=== PATIENT | female | born 1970 | race Caucasian/White ===

== ENCOUNTER → 2018-08-29 08:03 | Outpatient (CLI) | payer BC, SELFPAY ==
--- NOTE | 2018-08-29 08:13 | AS_ITS ---
Renal Arterial Duplex IMPRESSIONS 1. The right renal artery appears normal. 2. The left renal artery appears normal. 3. Evidence of a second left renal artery is noted, with no evidence of renal artery stenosis. Left RAR is 0.72. No evidence of renal artery stenosis, bilaterally. 4. Normal kidney size, bilaterally. Complete renal arterial duplex. Duplex scan and Doppler flow study including spectral analysis, color and crump scale imaging. Height: Height: 154.9cm. Height: 61in. Weight: Weight: 70.3kg. Weight: 154.7lb. Body mass index: BMI: 29.3kg/m^2. Body surface area: BSA: 1.76m^2. Location: Vascular laboratory. Patient status: Outpatient. Tables: Arterial flow: + +--------+--------+---------+ Location V sys V ed Resistive + +--------+--------+---------+ Right renal - proximal 140cm/s 55.1cm/s --------- + +--------+--------+---------+ Right renal - mid 86.1cm/s 29.5cm/s --------- + +--------+--------+---------+ Right renal - distal 90cm/s 34.2cm/s --------- + +--------+--------+---------+ Left renal - proximal 149cm/s 53.8cm/s --------- + +--------+--------+---------+ Left renal - mid 111cm/s 33.1cm/s --------- + +--------+--------+---------+ Left renal - distal 136cm/s 53.8cm/s --------- + +--------+--------+---------+ Left renal - Origin 146cm/s 54.9cm/s 0.62 + +--------+--------+---------+ Right renal - Origin 193cm/s 61.6cm/s 0.68 + +--------+--------+---------+ L renal 2 - Origin 81.8cm/s 26.9cm/s 0.67 + +--------+--------+---------+ L renal 2 - prox 72.1cm/s 31.1cm/s 0.57 + +--------+--------+---------+ L renal- 2 - mid 72.9cm/s 33.6cm/s 0.54 + +--------+--------+---------+ L renal 2 - distal 73.8cm/s 32.8cm/s 0.56 + +--------+--------+---------+ Aorta 113cm/s 18.6cm/s 0.84 + +--------+--------+---------+ Artery mapping: + +--------+-------+ Location Diameter Patency + +--------+-------+ Abdominal aorta - mid 1.4mm Patent + +--------+-------+ Renal anatomy: + +-----+-----+ Left Right + +-----+-----+ Long axis 9.8cm 9.1cm + +-----+-----+ Short axis 4.7cm 4.1cm + +-----+-----+ Velocity ratios: + +-----+ V sys + +-----+ Right renal/aortic 1.7 + +-----+ Left renal/aortic 1.3 + +-----+ (Report amended ) Electronically signed by: Marquis Olmedo [id number]
--- NOTE | 2018-08-29 08:54 | US_ITS ---
US kidney retroperitoneal comp HISTORY: ITS.REASON: FLANK PAIN ORDERING PHYSICIAN: Adelaide Bhatti PATIENT AGE: 48 years Comparison: 04/05/2015 FINDINGS: The right kidney is 9.4 x 4 x 6.4 cm. No cortical thinning. No hydronephrosis. There is a 1 cm cyst in the upper pole. The left kidney is 10 x 6 x 8 cm. No cortical thinning or hydronephrosis. IMPRESSION: 1. No hydronephrosis. 2. Small right renal cyst. 3. Otherwise negative bilateral renal ultrasound
== END ==
PROVIDERS: PCP Family Medicine; Visit Provider Family Medicine
DX: R10.84 Generalized abdominal pain (principal); N13.30 Unspecified hydronephrosis
CPT/HCPCS: 76770; 93976

== ENCOUNTER 2020-04-02 14:35 | Emergency (ER) | payer BC, SELFPAY ==
[2020-04-02 15:02] VITALS: BP 111/75; PULSE 87; RESP 20; TEMP 36.9; O2SAT 98; BMI 32.3
--- NOTE | 2020-04-02 15:02 | HMH.EDUTC ---
[facility] [place] Clinical Impression: UTI (urinary tract infection) Qualifiers: Urinary tract infection type: site unspecified Hematuria presence: with hematuria Qualified Code(s): N39.0 - Urinary tract infection, site not specified Disposition: Home, Self-Care Condition on Discharge: Good Instructions: Urinary Tract Infection, DI for Urinary Tract Infection (UTI) Additional Instructions: Drink plenty of fluids. Take tylenol or ibuprofen for pain or fever. Take the medications as directed. Follow up with your regular doctor. GO TO THE ER FOR ANY WORSENING SYMPTOMS Follow up with Dr. Matthew (urology). I put in a referral but you need to call his office and get an appointment. The pyridium will make your urine turn orange, this is an expected side effect. It will stain your clothes if it comes into contact with them. Prescriptions: Ondansetron [Zofran 4mg ODT] 4 mg PO Q8HP PRN #10 tab.rapdis PRN Reason: Nausea Transmission Status: Received by [facility] Sulfamethoxazole/Trimethoprim [Bactrim DS tablet] 1 each PO BID 10 Days #20 tab Transmission Status: Received by [facility] Fluconazole [Diflucan 150mg tab] 150 mg PO ONCE #1 tab Transmission Status: Received by [facility] Phenazopyridine HCl [Pyridium 200mg Tablet] 200 pow PO TID #6 tab Transmission Status: Received by [id number] Referrals: Adelaide Bhatti [Primary Care Provider] - Grover Matthew MD [Staff Physician] - Forms: Work/School Release Time of Disposition: 15:17 Medical Decision Making - Medical Records Medical records reviewed: No: I reviewed the patient's medical records. - Jorge Luis Inquiry Pt receiving controlled substance: No Vital Signs: 04/02/20 15:02 04/02/20 15:30 Temperature 98.4 F 98.4 F Temperature Source Oral Pulse Rate 87 Pulse Rate [Left Brachial] 87 Respiratory Rate 20 20 Blood Pressure 111/75 Blood Pressure [Left Arm] 111/75 Blood Pressure Mean [Left Arm] 87 Blood Pressure Source [Left Arm] Automatic Cuff Blood Pressure Position [Left Arm] Sitting 02 Sat by Pulse Oximetry 98 Oxygen Delivery Method Room Air - Lab Data Lab results reviewed: Yes: I reviewed the patient's lab results. Lab Results 04/02/20 15:03: Urine Color Yellow, Urine Appearance Cloudy, Urine pH 6.0, Ur Specific [place] 1.025, Urine Protein Trace, Urine Glucose (UA) Negative, Urine Ketones Negative, Urine Blood Trace, Urine Nitrate Negative, Urine Bilirubin Negative, Urine Urobilinogen 0.2, Ur Leukocyte Esterase 1+ A Orders (Tests/Meds): ORDERS Category Date Time Status Urine Culture Stat Micro 04/02/20 14:45 Results [facility] [place] - General Stated complaint: Possible UTI Time Seen by Provider: 04/02/20 15:02 - History of Present Illness Provider Complaint: She c/o low back pain (worse on the right) and urinary frequency and dysuria for the past 3 days approx. She has been getting uti's frequently for the past 2 months or so. When she was young (15 y.o.) she had similar episode and she had to have a surgery on one of her ureters. - Related Data Home Medications Medication Instructions Recorded Confirmed spironolactone 50 mg tablet 50 mg PO DAILY 11/15/19 04/02/20 torsemide 20 mg tablet 20 mg PO DAILY 11/15/19 04/02/20 Previous Rx's Medication Instructions Recorded Fluconazole [Diflucan 150mg tab] 150 mg PO ONCE #1 tab 04/02/20 Ondansetron [Zofran 4mg ODT] 4 mg PO Q8HP PRN #10 tab.rapdis 04/02/20 Phenazopyridine HCl [Pyridium 200 pow PO TID #6 tab 04/02/20 200mg Tablet] Sulfamethoxazole/Trimethoprim 1 each PO BID 10 Days #20 tab 04/02/20 [Bactrim DS tablet] Allergies Allergy/AdvReac Type Severity Reaction Status Date / Time No Known Allergies Allergy Verified 11/15/19 13:25 [facility] History - Hepatitis A Screen Attestation statement:: This patient has been screened for Hepatitis A risk factors. I have review
[2020-04-02 15:13] LABS: Apearance,Urine Cloudy (Clear); Bilirubin,Urine Negative (Negative); Blood, Urine Trace (Negative); Color,Urine Yellow (Yellow); Glucose,Urine (UA) Negative (Negative); Ketones,Urine Negative (Negative); Protein,Urine Trace (Negative); Specific Gravity, Urine 1.025 (1.005-1.030); UTC Leukocyte Esterase,Urine 1+ (Negative); UTC Nitrate,Urine Negative (Negative); Urobilinogen,Urine 0.2 EU/dl (0.2)
[2020-04-02 15:30] VITALS: BP 111/75; PULSE 87; RESP 20; TEMP 36.9; O2SAT 98
== END 2020-04-02 15:33 | disposition home or self-care (01) ==
PROVIDERS: Emergency Provider Nurse Practitioner Family; PCP Family Medicine
DX: N39.0 Urinary tract infection, site not specified (principal); M54.5 Low back pain; F41.8 Other specified anxiety disorders
CPT/HCPCS: 81003; 87086; 87088; 87186; 99201

== ENCOUNTER → 2020-04-22 12:48 | Outpatient (CLI) | payer BC, SELFPAY ==
--- NOTE | 2020-04-22 12:48 | FL_ITS ---
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 300 mL water-soluble contrast was instilled into the urinary bladder. Spot views of the urinary bladder show unremarkable appearance of the urinary bladder. No filling defects are evident.. Voiding images were then obtained showing no evidence of vesicoureteral reflux. There was a mild amount of postvoid residual urine within the bladder. Initially there was approximately 200 mL of urine drained from the Thompson catheter after the patient had went to the bathroom and completely voided. IMPRESSION: 1. No evidence of vesicoureteral reflux. 2. Mild amount of postvoid residual urine in the urinary bladder Dictated by: Marquis Olmedo MD 04/22/2020 15:02 Electronically signed by Marquis Olmedo MD in [place] 04/22/2020 15:02
== END ==
PROVIDERS: PCP Family Medicine; Visit Provider Urology
DX: N13.70 Vesicoureteral-reflux, unspecified (principal); N39.0 Urinary tract infection, site not specified
CPT/HCPCS: 74455; Q9967

== ENCOUNTER → 2020-04-23 13:33 | Outpatient (CLI) | payer BC, SELFPAY ==
--- NOTE | 2020-04-23 13:34 | US_ITS ---
PROCEDURE: US KIDNEY CLINICAL INDICATION: COMPARISON: RETROPCM US kidney retroperitoneal comp from 08/29/2018 FINDINGS: The right kidney is [id number]. No hydronephrosis, cortical thinning, or renal mass or perinephric fluid collection is evident. There is a small 8 mm cyst in the mid pole of the right kidney The left kidney is [id number]. No hydronephrosis, cortical thinning, or renal mass or perinephric fluid collection is evident. IMPRESSION: Unremarkable bilateral renal ultrasound Dictated by: Marquis Olmedo MD 04/23/2020 16:20 Electronically signed by Marquis Olmedo MD in [place] 04/23/2020 16:20
== END ==
PROVIDERS: PCP Family Medicine; Visit Provider Urology
DX: R10.9 Unspecified abdominal pain (principal)
CPT/HCPCS: 76770

== ENCOUNTER → 2020-04-27 15:46 | Outpatient (CLI) | payer BC, SELFPAY ==
--- NOTE | 2020-04-27 16:00 | MR_ITS ---
PROCEDURE: MR LUMBAR SPINE WO CON CLINICAL INDICATION: BACK PAIN WITH BLADDER DYSFUNCTION Low back pain with left-sided sciatica, worsening low back pain with trouble walking soft COMPARISON: No exams were available for comparison TECHNIQUE: Standard multiplanar multiecho sequences are performed without contrast. 3-D MIP and myelographic images are also rendered and reviewed FINDINGS: There is normal alignment. The spinal cord ends at the L1 level. T11-T12: Degenerate disc disease with minimal right paracentral disc protrusion minimal right-sided foraminal narrowing. T12-L1: Unremarkable. L1-L2: Unremarkable. L2-L3: Unremarkable. L3-L4: Unremarkable. L4-5: Minimal bulging disc which is slightly eccentric toward the right with facet and ligamentum hypertrophy with mild right lateral recess and foraminal narrowing. L5-S1: Mild degenerative disc disease with bulging disc with facet and ligamentum hypertrophy with moderate bilateral foraminal narrowing with borderline canal stenosis. No extruded herniated disc is evident. IMPRESSION: 1. T11-T12: Degenerate disc disease with minimal right paracentral disc protrusion minimal right-sided foraminal narrowing. 2. L4-5: Minimal bulging disc which is slightly eccentric toward the right with facet and ligamentum hypertrophy with mild right lateral recess and foraminal narrowing. 3. L5-S1: Mild degenerative disc disease with bulging disc with facet and ligamentum hypertrophy with moderate bilateral foraminal narrowing with borderline canal stenosis. 4. No extruded herniated disc is evident. Dictated by: Marquis Olmedo MD 04/29/2020 10:05 Electronically signed by Marquis Olmedo MD in [place] 04/29/2020 10:05
== END ==
PROVIDERS: PCP Family Medicine; Visit Provider Family Medicine
DX: M54.5 Low back pain (principal); N31.9 Neuromuscular dysfunction of bladder, unspecified
CPT/HCPCS: 72148; 76376

== ENCOUNTER 2020-06-24 09:00 | Outpatient (RCR) | payer BC, SELFPAY | END 2020-06-24 10:00 | disposition home or self-care (01) | LOC: PT 09:00 | PROVIDERS: PCP Family Medicine; Visit Provider Orthopaedic Surgery | DX: M54.5 Low back pain (principal) | CPT/HCPCS: 97010; 97012; 97014; 97110; 97163; G0283 ==

== ENCOUNTER 2020-08-02 17:41 | Emergency (ER) | payer BC, SELFPAY ==
--- NOTE | 2020-08-02 18:02 | HMH.EDUTC ---
[facility] [place] Dis[place] Clinical Impression: Crush injury of left foot Qualifiers: Encounter type: initial encounter Qualified Code(s): S97.82XA - Crushing injury of left foot, initial encounter Disposition: Home, Self-Care Condition on Discharge: Good Instructions: DI for Crush Injury Additional Instructions: Rest the extremity, Elevate the extremity as tolerated while you are resting. Take ibuprofen for pain. I sent in a prescription to your pharmacy. Follow up with Dr. Colin. I put in a referral but you need to call her office and schedule an appointment. Follow up with your regular doctor. GO TO THE ER FOR ANY WORSENING SYMPTOMS Prescriptions: Ibuprofen [Ibuprofen 600mg Tablet] 600 mg PO Q6HP PRN #30 tab PRN Reason: Mild Pain Transmission Status: Received by [facility] Referrals: Adelaide Bhatti [Primary Care Provider] - Kylah Colin DPM [Staff Physician] - Time of Disposition: 18:38 Medical Decision Making - Medical Records Medical records reviewed: No: I reviewed the patient's medical records. - Jorge Luis Inquiry Pt receiving controlled substance: No Vital Signs: 08/02/20 18:11 08/02/20 18:38 Temperature 98.6 F 98.6 F Temperature Source Oral Pulse Rate 72 Pulse Rate [Right Brachial] 72 Respiratory Rate 15 15 Blood Pressure 130/90 Blood Pressure [Right Arm] 130/90 Blood Pressure Mean [Right Arm] 103 Blood Pressure Source [Right Arm] Automatic Cuff Blood Pressure Position [Right Arm] Sitting 02 Sat by Pulse Oximetry 99 Oxygen Delivery Method Room Air - Radiology Data #1 Image(s): Foot/Toes Image Reviewed: Yes I reviewed the patient's radiology image, Yes I have reviewed radiologist's interpretation Preliminary Findings: Normal/NAD, No Fracture Seen PROCEDURE: XR FOOT RT MIN 3V CLINICAL INDICATION: dropped 45# weight on foot Posttraumatic pain COMPARISON: No exams were available for comparison FINDINGS: No fracture or dislocation. No lytic or blastic change. There is normal mineralization. The joint spaces are well-preserved. No significant degenerative/arthritic changes. No erosive changes evident. Other findings:None. IMPRESSION: No acute findings. Dictated by: Marquis Olmedo MD 08/03/2020 07:10 Marquis Olmedo MD in [place] 08/03/2020 07:10 [facility] [place] HPI - General Stated complaint: AO 1101@2030 at home injured L foot toes Time Seen by Provider: 08/02/20 18:02 - History of Present Illness Provider Complaint: She was working out yesterday when she dropped a 45 pound weight on her left foot. Since then she has had foot pain and swelling and bruising of her 3rd, 4th, and 5th toes. She is walking without difficulty, but she states that her foot does hurt when she walks or bears weight on it. - Related Data Home Medications Medication Instructions Recorded Confirmed spironolactone 50 mg tablet 50 mg PO DAILY 11/15/19 05/14/20 torsemide 20 mg tablet 20 mg PO DAILY 11/15/19 05/14/20 Previous Rx's Medication Instructions Recorded Fluconazole [Diflucan 150mg tab] 150 mg PO ONCE #1 tab 04/02/20 Ondansetron [Zofran 4mg ODT] 4 mg PO Q8HP PRN #10 tab.rapdis 04/02/20 Phenazopyridine HCl [Pyridium 200 pow PO TID #6 tab 04/02/20 200mg Tablet] Sulfamethoxazole/Trimethoprim 1 each PO BID 10 Days #20 tab 04/02/20 [Bactrim DS tablet] Ibuprofen [Ibuprofen 600mg 600 mg PO Q6HP PRN #30 tab 08/02/20 Tablet] Allergies Allergy/AdvReac Type Severity Reaction Status Date / Time No Known Allergies Allergy Verified 05/14/20 15:04 [facility] History - Hepatitis A Screen Attestation statement:: This patient has been screened for Hepatitis A risk factors. I have reviewed the patient's past medical history: Yes 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: Reports:: Anxiety, Congestive Heart Failure, Depression, Hypertension Other 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: Reports: Arthritis Comment: [id number] Other Surgeries: Yes: No Previous Surgery, Cholecystectomy, C-sec
[2020-08-02 18:11] VITALS: BP 130/90; PULSE 72; RESP 15; TEMP 37; O2SAT 99; BMI 33.0
[2020-08-02 18:38] VITALS: BP 130/90; PULSE 72; RESP 15; TEMP 37; O2SAT 99
== END 2020-08-02 18:40 | disposition home or self-care (01) ==
PROVIDERS: Emergency Provider Nurse Practitioner Family; PCP Family Medicine
DX: S97.82XA Crushing injury of left foot, initial encounter (principal); W22.8XXA Striking against or struck by other objects, initial encounter; Y92.018 Other place in single-family (private) house as the place of occurrence of the external cause; I10 Essential (primary) hypertension; F41.8 Other specified anxiety disorders
CPT/HCPCS: 73630; 99201

== ENCOUNTER 2020-09-06 10:40 | Emergency (ER) | payer BC, SELFPAY ==
[2020-09-06 11:50] VITALS: BP 130/71; PULSE 75; RESP 18; TEMP 36.4; O2SAT 99; BMI 33.0
[2020-09-06 11:55] VITALS: BP 130/71; PULSE 75; RESP 18; TEMP 36.4; O2SAT 99
--- NOTE | 2020-09-06 11:55 | HMH.EDUTC ---
[facility] [place] Impression: Close exposure to COVID-19 virus Disposition: Home, Self-Care Condition on Discharge: Good Instructions: Preventing the Spread of Coronavirus Discharge Instructions Additional Instructions: *Monitor Temp, Over the counter Motrin or Tylenol as directed/as needed Tylenol every 4 hours and Motrin every 6 hours (as long as your family doctor has told you that you can take it) for fever or pain. and straight to ER if unable to lower temp less than 101.0 after medication given *Warm salt water gargles may help to soothe the throat *Throat Lozenges *Warm fluids like tea with honey may help to soothe the throat *Sleep elevated *Humidifier/Vaporizer ? Avoid fruit juices, as these do not replace minerals and can actually increase diarrhea. ? Children and adults can use sports drinks to replenish electrolytes. Younger children and infants should use products formulated for children, like oral rehydration solutions. ? Eat food in small amounts and let your stomach recover. ? Get lots of rest. You may feel tired or weak. ? No greasy or fried foods for the next 24-48 hours BRAT diet Bananas Rice Apples and Rio ? Make sure to drink plenty of liquids ? Return if needed ? Straight to ER if any life threatening symptoms ? Follow up with family doctor in the next 48-72 hours if no improvement or any worsening of symptoms Follow up IMMEDIATELY for new or worsening symptoms or no Noticeable improvement over the next 48-72 hours. 911 for difficulty breathing or swallowing You were tested for today for COVID19 your test result should be back in the next 24-48 hours, you may call to the [facility] to see if your test results are back in the next 48 hours [phone] [facility] hours are 9am-9pm You was given a handout with instructions for Self Quarantine and Self isolation for while you wait on test results and what to do if they are positive If you are positive the Health Dept will be contacting you also Referrals: Adelaide Bhatti [Primary Care Provider] - As needed Forms: Work/School Release Time of Disposition: 11:58 Medical Decision Making - Jorge Luis Inquiry Pt receiving controlled substance: No Jorge Luis was queried for this patient: No Vital Signs: 09/06/20 11:50 Temperature 97.6 F Temperature Source Oral Pulse Rate [Left] 75 Respiratory Rate 18 Blood Pressure [Right Arm] 130/71 Blood Pressure Mean [Right Arm] 90 Blood Pressure Source [Right Arm] Automatic Cuff Blood Pressure Position [Right Arm] Sitting 02 Sat by Pulse Oximetry 99 Oxygen Delivery Method Room Air Orders (Tests/Meds): ORDERS Category Date Time Status Covid-19 Nasal PCR Sendout [facility] 09/06/20 11:30 [place] [facility] [place] - General Stated complaint: covid exposed Time Seen by Provider: 09/06/20 11:55 Mode of Arrival: Ambulatory Source of Information: Patient Limitations: No Limitations Description of Symptoms (Recalled from Triage Doc. by RN): Covid testing exposure HEENT Symptoms (Recalled from RN notes): Yes Resp Symptoms (Recalled from RN notes): Yes Skin Symptoms (Recalled from RN notes): No MS Symptoms (Recalled from RN notes): Yes Functional Status (Recalled from RN notes): wnl - History of Present Illness Provider Complaint: Patient states she was recently around her son that has since tested positive for COVID States that she works out and started a new supplement and not sure if she may have COVID or the supplement is causing her to have body aches and diarrhea States that she has also had chills but no known fever and wanted to come in and get tested 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
[2020-09-07 12:47] LABS: Covid-19 Nasal PCR Sendout Lex Not Detected
== END 2020-09-06 12:33 | disposition home or self-care (01) ==
PROVIDERS: Emergency Provider Nurse Practitioner; PCP Family Medicine
DX: Z20.828 Contact with and (suspected) exposure to other viral communicable diseases (principal); F41.8 Other specified anxiety disorders; I50.9 Heart failure, unspecified; I10 Essential (primary) hypertension; Z79.899 Other long term (current) drug therapy
CPT/HCPCS: 99201; U0004

== ENCOUNTER 2020-10-19 11:19 | Emergency (ER) | payer BC, SELFPAY ==
[2020-10-19 12:00] VITALS: BP 130/78; PULSE 77; RESP 19; TEMP 36.6; O2SAT 98
== END 2020-10-19 12:02 | disposition left against medical advice (07) ==
LOC: UTC 11:21
PROVIDERS: Emergency Provider Nurse Practitioner; PCP Family Medicine
DX: Z53.21 Procedure and treatment not carried out due to patient leaving prior to being seen by health care provider (principal)

== ENCOUNTER 2020-11-12 12:00 | Emergency (ER) | payer BC, SELFPAY ==
[2020-11-12 12:10] VITALS: BP 127/85; PULSE 99; RESP 18; TEMP 36.9; O2SAT 96; BMI 33.0
--- NOTE | 2020-11-12 12:18 | HMH.EDUTC ---
[facility] [place] Disposition Clinical Impression: Sinusitis Qualifiers: Sinusitis location: unspecified location Chronicity: unspecified Qualified Code(s): J32.9 - Chronic sinusitis, unspecified Disposition: Home, Self-Care Condition on Discharge: Good Instructions: Sinusitis, Sinus Headache, DI for Sinusitis, Doxycycline Additional Instructions: *Monitor Temp, Over the counter Motrin or Tylenol as directed/as needed Tylenol every 4 hours and Motrin every 6 hours (as long as your family doctor has told you that you can take it) for fever or pain. and straight to ER if unable to lower temp less than 101.0 after medication given *Warm salt water gargles may help to soothe the throat *Throat Lozenges *Warm fluids like tea with honey may help to soothe the throat *Sleep elevated *Humidifier/Vaporizer *Flonase 2 sprays in each nostril daily but be aware that it may take 2-3 days before you notice improvement *Take medication as prescribed Return if needed Make sure while taking mucinex that you are drinking plenty of fluids Follow up IMMEDIATELY for new or worsening symptoms or no Noticeable improvement over the next 48-72 hours. 911 for difficulty breathing or swallowing Prescriptions: Doxycycline Monohydrate [Doxycycline [place] 100mg Tab] 100 mg PO Q12 #14 tab Transmission Status: Pending to [facility] Fluticasone Propionate [Flonase 50mcg nasal spray 16gm] 1 spr NS DAILY #1 bottle Transmission Status: Pending to [facility] guaiFENesin [Mucinex 600mg tablet] 600 mg PO BID PRN #20 tab.er.12h PRN Reason: Congestion Transmission Status: Pending to [facility] Referrals: Adelaide Bhatti [Primary Care Provider] - As needed Time of Disposition: 12:26 Medical Decision Making - Jorge Luis Inquiry Pt receiving controlled substance: No Jorge Luis was queried for this patient: No Vital Signs: 11/12/20 12:10 Temperature 98.4 F Temperature Source Oral Pulse Rate [Right] 99 H Respiratory Rate 18 Blood Pressure [Right Arm] 127/85 Blood Pressure Mean [Right Arm] 99 Blood Pressure Source [Right Arm] Automatic Cuff Blood Pressure Position [Right Arm] Sitting 02 Sat by Pulse Oximetry 96 Oxygen Delivery Method Room Air [facility] [place] HPI - General Stated complaint: stuffy nose,headache,body aches Time Seen by Provider: 11/12/20 12:18 Mode of Arrival: Ambulatory Source of Information: Patient Limitations: No Limitations Description of Symptoms (Recalled from Triage Doc. by RN): pt says she has a MOODY, sinus pressure, cough from the drainage, and sore throat. she believes its a sinus infection. she states she has had both covid vaccines. HEENT Symptoms (Recalled from RN notes): Yes (nasal congestion and yellow drainage. MOODY) Resp Symptoms (Recalled from RN notes): Yes (nonproductive cough) Skin Symptoms (Recalled from RN notes): No MS Symptoms (Recalled from RN notes): No Functional Status (Recalled from RN notes): na - History of Present Illness Provider Complaint: Patient states that she has frequent sinus infections States that she had one in Oct and took medication and didnt feel like it cleared up the infection States that she is having sinus pain and pressure, sinus headache and feeling like she was having some pressure in teeth states that she has been blowing out dark yellowish green mucous - Related Data Home Medications Medication Instructions Recorded Confirmed spironolactone 50 mg tablet 50 mg PO DAILY 11/15/19 05/14/20 torsemide 20 mg tablet 20 mg PO DAILY 11/15/19 05/14/20 Previous Rx's Medication Instructions Recorded Fluconazole [Diflucan 150mg tab] 150 mg PO ONCE #1 tab 04/02/20 Ondansetron [Zofran 4mg ODT] 4 mg PO Q8HP PRN #10 tab.rapdis 04/02/20 Phenazopyridine HCl [Pyridium 200 pow PO TID #6 tab 04/02/20 200mg Tablet] Sulfamethoxazole/Trimethoprim 1 each PO BID 10 Days #20 tab 04/02/20 [Bactrim DS tablet] Ibuprofen [Ibuprofen 600mg 600 mg PO Q6HP PRN #30 tab 08/02/20
[2020-11-12 12:27] VITALS: BP 129/84; PULSE 98; RESP 18; TEMP 36.8
== END 2020-11-12 12:32 | disposition home or self-care (01) ==
PROVIDERS: Emergency Provider Nurse Practitioner; PCP Family Medicine
DX: J32.9 Chronic sinusitis, unspecified (principal); I10 Essential (primary) hypertension; F41.8 Other specified anxiety disorders; Z79.899 Other long term (current) drug therapy
CPT/HCPCS: 99202; G0463

== ENCOUNTER → 2021-01-10 13:02 | Outpatient (CLI) | payer BC, SELFPAY ==
--- NOTE | 2021-01-10 13:04 | XR_ITS ---
PROCEDURE: XR DEXA AXIAL SKELETON CLINICAL HISTORY: SCREENING FOR OSTEOPENIA COMPARISON: No exams were available for comparison FINDINGS: The right hip BMD is 0.828 with a T-score of -0.2. The left hip BMD is 0.918 with a T-score of 0.6. The lumbar spine BMD is 1.155 with a T-score of 1.0. IMPRESSION: This patient is considered normal according to the World Health Organization criteria. Fracture risk is low. Based on these results a follow-up exam is recommended in 2 year. Dictated by: Marquis Olmedo MD 01/12/2021 09:41 Marquis Olmedo MD in [place] 01/12/2021 09:41
== END ==
PROVIDERS: PCP Family Medicine; Visit Provider Family Medicine
DX: Z13.820 Encounter for screening for osteoporosis (principal); M85.80 Other specified disorders of bone density and structure, unspecified site
CPT/HCPCS: 77080

== ENCOUNTER 2021-03-30 18:02 | Emergency (ER) | payer BC, SELFPAY ==
[2021-03-30 18:05] VITALS: BP 134/68; PULSE 78; RESP 18; TEMP 36.8; O2SAT 99; BMI 34.0
--- NOTE | 2021-03-30 18:45 | HMH.EDUTC ---
[facility] [place] Disposition Clinical Impression: Fatigue Qualifiers: Fatigue type: unspecified Qualified Code(s): R53.83 - Other fatigue Disposition: Home, Self-Care Condition on Discharge: Good Instructions: DI for Fatigue Additional Instructions: Make sure to Follow up with your Family Doctor for further blood tests and examination Return if needed Straight to ER if any life threatening symptoms Make sure that you are eating adequate diet and getting adequate rest Referrals: Bartolo Roe MD [Primary Care Provider] - As needed Time of Disposition: 19:01 Medical Decision Making - Jorge Luis Inquiry Pt receiving controlled substance: No Jorge Luis was queried for this patient: No Vital Signs: 03/30/21 18:05 03/30/21 18:58 Temperature 98.2 F 98.2 F Temperature Source Oral Pulse Rate 78 Pulse Rate [Right Brachial] 78 Respiratory Rate 18 18 Blood Pressure 134/68 Blood Pressure [Right Arm] 134/68 Blood Pressure Mean [Right Arm] 90 Blood Pressure Source [Right Arm] Automatic Cuff Blood Pressure Position [Right Arm] Sitting 02 Sat by Pulse Oximetry 99 Oxygen Delivery Method Room Air - Lab Data Lab Results 03/30/21 18:25: WBC 8.5, RBC 4.56, Hgb 13.3, Hct 40.6, MCV 89.0, MCH 29.2, MCHC 32.8, RDW 14.5, Plt Count 211, MPV 7.4, Neut % (Auto) 57.1, Lymph % (Auto) 32.8, [place] % (Auto) 4.7, Eos % (Auto) 4.8, Baso % (Auto) 0.7, Neut # (Auto) 4.8, Lymph # (Auto) 2.8, [place] # (Auto) 0.4, Eos # (Auto) 0.4, Baso # (Auto) 0.1 Result diagrams: 03/30/21 18:25 Medical Decision Narrative: Discussed with patient and recommended transfer to the ED for more extensive work up and evaluation and patient declined States that she wanted to have the CBC to make sure her platelets wasnt low again and she will follow up with her Family Doctor as scheduled or return if any worsening of symptoms patient aware or risks and still declined transfer [facility] [place] HPI - General Stated complaint: weakness Time Seen by Provider: 03/30/21 18:45 Mode of Arrival: Ambulatory Source of Information: Patient Limitations: No Limitations Description of Symptoms (Recalled from Triage Doc. by RN): PATIENT C/O FATIGUE, HEAD FOG , AND TINGLING EXTREMETIES (IN AM) X 2 WEEKS HEENT Symptoms (Recalled from RN notes): No Resp Symptoms (Recalled from RN notes): No Skin Symptoms (Recalled from RN notes): No MS Symptoms (Recalled from RN notes): No Functional Status (Recalled from RN notes): WNL - History of Present Illness Provider Complaint: Patient states that she has been feeling tired for several weeks and feels like sometimes she has brain fog where she doesnt remember everything State that she was worried that her blood may be low and wanted to get that checked State that it has been going on for awhile now and she has appointment with her PCP next week State also at times when she wakes up she has some tingling in her fingers that goes away not sure if she is laying on it wrong or not denies tingling at this time States that she wanted to get her blood checked to make sure her blood wasnt low or her platelets wasnt low - Related Data Home Medications Medication Instructions Recorded Confirmed spironolactone 50 mg tablet 50 mg PO DAILY 11/15/19 05/14/20 torsemide 20 mg tablet 20 mg PO DAILY 11/15/19 05/14/20 Previous Rx's Medication Instructions Recorded Fluconazole [Diflucan 150mg tab] 150 mg PO ONCE #1 tab 04/02/20 Ondansetron [Zofran 4mg ODT] 4 mg PO Q8HP PRN #10 tab.rapdis 04/02/20 Phenazopyridine HCl [Pyridium 200 pow PO TID #6 tab 04/02/20 200mg Tablet] Sulfamethoxazole/Trimethoprim 1 each PO BID 10 Days #20 tab 04/02/20 [Bactrim DS tablet] Ibuprofen [Ibuprofen 600mg 600 mg PO Q6HP PRN #30 tab 08/02/20 Tablet] Doxycycline Monohydrate 100 mg PO Q12 #14 tab 11/12/20 [Doxycycline [place] 100mg Tab] Fluticasone Propionate [Flonase 1 spr NS DAILY #1 bottle 11/12/20 50mcg nasal spray 16gm] guaiFENesin [Mucinex 600mg
[2021-03-30 18:52] LABS: Basophils # 0.1 K/mm3 (0-0.2); Basophils % 0.7 % (0.1-2.0); Eosinophils # 0.4 K/mm3 (0.0-0.4); Eosinophils % 4.8 % (0.1-12.0); Hematocrit 40.6 % (37.0-47.0); Hemoglobin 13.3 g/dL (12.2-16.2); Lymphocytes # 2.8 K/mm3 (0.7-4.5); Lymphocytes % 32.8 % (10-50); Mean Corpuscular HGB Conc 32.8 g/dL (31.8-35.4); Mean Corpuscular Hemoglobin 29.2 pg (27.0-31.2); Mean Platelet Volume 7.4 fl (7.4-10.4); Monocytes # 0.4 K/mm3 (0.1-1.0); Monocytes % 4.7 % (1.7-9.3); Neutrophils # 4.8 K/mm3 (1.8-7.8); Neutrophils % 57.1 % (37.0-80.0); Platelet Count 211 K/mm3 (142-424); Red Blood Count 4.56 M/mm3 (4.20-5.40); Red Cell Distribution Width 14.5 % (11.5-17.5); White Blood Count 8.5 K/mm3 (4.8-10.8)
[2021-03-30 18:58] VITALS: BP 134/68; PULSE 78; RESP 18; TEMP 36.8; O2SAT 99
== END 2021-03-30 19:07 | disposition home or self-care (01) ==
PROVIDERS: Emergency Provider Nurse Practitioner; PCP Family Medicine
DX: R53.83 Other fatigue (principal); R20.2 Paresthesia of skin; I50.9 Heart failure, unspecified; I10 Essential (primary) hypertension; F41.8 Other specified anxiety disorders; Z79.899 Other long term (current) drug therapy
CPT/HCPCS: 85025; 99202; G0463

== ENCOUNTER → 2021-04-08 12:55 | Outpatient (CLI) | payer BC, SELFPAY ==
--- NOTE | 2021-04-08 13:01 | MM_ITS ---
PROCEDURE INFORMATION: Exam: MG Screening 3D Mammography Exam date and time: 04/08/2021 1:01 PM Age: 50 years old Clinical indication: screening mammogram TECHNIQUE: Imaging protocol: Screening tomosynthesis and 2D mammography including computer-aided detection (CAD) when performed. COMPARISON: 1. MG DMSB DIG MAMM-SCREEN MARGIE W/CAD 08/02/2017 3:38 PM 2. MG DMDXUAVL DIG MAMM-DX UNI ADD VIEWS-LT 07/30/2014 2:07 PM 3. MG DMSB DIG MAMM-SCREEN MARGIE 07/14/2014 10:45 AM FINDINGS: MAMMOGRAPHY: Breast composition: The breast tissue is heterogeneously dense, which may obscure small masses. Mass: None. Architectural distortion: No new or suspicious architectural distortion. Calcifications: No new or suspicious calcifications are present Asymmetric density: No new or suspicious asymmetric density is present Skin thickening: None. Axillary adenopathy: None. IMPRESSION: No mammographic evidence of malignancy. Recommend annual screening mammography unless otherwise clinically indicated. ASSESSMENT: BI-RADS category 1: Negative
== END ==
PROVIDERS: PCP Family Medicine; Visit Provider Family Medicine
DX: Z12.31 Encounter for screening mammogram for malignant neoplasm of breast (principal)
CPT/HCPCS: 77063; 77067

== ENCOUNTER → 2021-05-31 15:17 | Outpatient (CLI) | payer BC, SELFPAY ==
[2021-05-31 17:44] LABS: Coronavirus 19 IgG Antibody Positive (Negative); Coronavirus 19 IgM Antibody Negative (Negative)
== END ==
PROVIDERS: PCP Family Medicine; Visit Provider Family Medicine
DX: Z20.822 Contact with and (suspected) exposure to COVID-19 (principal)
CPT/HCPCS: 36415; 86328

== ENCOUNTER → 2021-08-11 09:58 | Outpatient (CLI) | payer BC, SELFPAY ==
--- NOTE | 2021-08-11 09:59 | CA_ITS ---
APPROVED REPORT EXAM: Comprehensive 2D, Doppler, and color-flow Echocardiogram Cash Posting Clerk: Gini Ramos RVT Ht: 5 ft 1 in Wt: 178lbs BSA: 1.80 BP: 103/67 mmHg Indications: CP,CHF,DIZZINESS,HTN,HLD,SOA 2D Dimensions LVOT 2.07 cm (M/F) 1.5-2.5 LA Volume 14.30 mL LA Volume Index 7.98 mL/m2 (M/F) 16-34 M-Mode Dimensions RVDd 2.14 cm (0.9-2.6) LA Diam 2.64 cm (1.9-4.0) LVDd 4.22 cm (3.5-5.7) Ao Diam 2.54 cm (2.0-3.7) LVDs 3.01 cm (3.5-5.7) IVSd 0.77 cm (0.6-1.1) PWd 0.64 cm (0.6-1.1) EF (Teich) 55.60% FS 28.70% EDV (Teich) 79.50 mL TAPSE 2.30 (<1.7) ESV (Teich) 35.30 mL LV Diastology E Decel Time 150.00 (160-240 msec) E/A Ratio 0.9 MED E' 7.60 (< 7 cm/sec) E'/MED E' Ratio 9.54 (>14) LAT E' 14.30 (<10 cm/sec) E/LAT E' Ratio 5.07 (>14) Mitral Valve MV E Max Emigdio. 73.00 (40-130 cm/s) MV A Velocity 83.00 (40-130 cm/s) E/A Ratio 0.87 MV Decel. Time 150.00 (160-240 ms) MV PHT 44.00 ms Pulmonary Valve PV Peak Velocity 78.00 (50-150 cm/s) Tricuspid Valve TR P. Velocity 218.00 cm/s RAP Estimate 10.00 mmHg RVSP 28.90 mmHg Left Ventricle Left atrium normal size, left ventricle is normal size, there is no concentric left ventricular hypertrophy, visually estimated ejection fraction 55% with no regional wall motion abnormality, diastolic parameters are within normal range. Right Ventricle Right atrium and right ventricle are normal size and contractility. Aortic Valve Aortic valve is grossly normal, there is no aortic stenosis or aortic insufficiency. Mitral Valve Mitral valve is grossly normal, there is trace mitral regurgitation. Tricuspid Valve Tricuspid grossly normal, there is trace tricuspid regurgitation, tricuspid regurgitation jet velocity is inadequate for calculation of the right ventricular systolic pressure. Pulmonic Valve Pulmonic valve is poorly visualized. Great Vessels Aortic root is normal size. Inferior vena cava is normal size with normal inspiratory collapse. Pericardium No significant pericardial effusion noted. Conclusion 1. Normal left ventricular size, preserved left ventricular systolic function, visually estimated ejection fraction 55% with no regional wall motion abnormality, diastolic parameters are within normal range. 2. Trace mitral and tricuspid regurgitation. 3. No significant pericardial effusion noted. 4. Inferior vena cava is normal size with normal inspiratory collapse. Electronically signed by : Vinicio Dumont MD 08/11/2021 15:29:27
--- NOTE | 2021-08-11 09:59 | CA_ITS ---
APPROVED REPORT Exam: Exercise Treadmill Technologist: Rosana Ramos, Ht: 5 ft 1 in Wt: 178 lbs BSA: 1.80 m2 HR: 85 bpm BP: 119/80 mmHg Rhythm: NSR, low voltage QRS Indications: CP, SOA 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: Hyperlipidemia Medications: Ibuprofen,,,,, FluTICASONE,,,,, SpirOnolactone,,,,, TorSEMIDE,,,,, Cardiac Risk Factors: FHX of CAD, Hyperlipidemia Stress Test Details Test: Dionisio HR Resting HR: 102 bpm Max Heart Rate (APMHR): 171 bpm Max HR Achieved: 167 bpm Target HR (85% APMHR): 145 bpm % of APMHR: 97 Recovery HR: 152 bpm BP Resting BP: 112/79 mmHg Max BP: 148/88 mmHg Recovery BP: 146.0/83.0 mmHg ECG Resting ECG: NSR, low voltage QRS Clinical Exercise duration: 07:59 min Highest Stage Achieved: Exercise capacity: 10.1 METs Stress ECG Conclusion Pt exercised total of 7:59 on dionisio protocol. Mild chest heaviness and SOA noted. Occasional PVC. Normal ST response to exercise. Normal GXT. GXT only. Electronically signed by : Vinicio Dumont MD 08/11/2021 14:04:28
== END ==
PROVIDERS: PCP Family Medicine; Visit Provider Nurse Practitioner Family
DX: R06.00 Dyspnea, unspecified (principal); R07.9 Chest pain, unspecified; R42 Dizziness and giddiness; I50.9 Heart failure, unspecified; R60.0 Localized edema; R61 Generalized hyperhidrosis
CPT/HCPCS: 93017; 93306

== ENCOUNTER 2021-08-26 11:29 | Emergency (ER) | payer BC, SELFPAY ==
[2021-08-26 13:15] VITALS: BP 129/64; PULSE 104; RESP 20; TEMP 37; O2SAT 97; BMI 34.0
[2021-08-26 13:41] LABS: Apearance,Urine Cloudy (Clear); Color,Urine Yellow (Yellow); Glucose,Urine (UA) Negative (Negative); Ketones,Urine Negative (Negative); PH,Urine 5.5 (5.0-8.5); Protein,Urine Negative (Negative)
[2021-08-26 13:42] LABS: Bilirubin,Urine Negative (Negative); Blood, Urine Trace (Negative); UTC Leukocyte Esterase,Urine Negative (Negative); UTC Nitrate,Urine Negative (Negative); Urobilinogen,Urine 0.2 EU/dl (0.2)
--- NOTE | 2021-08-26 13:55 | HMH.EDUTC ---
[facility] [place] Disposition Clinical Impression: Viral syndrome, Bronchitis Sinusitis Qualifiers: Sinusitis location: unspecified location Chronicity: acute Recurrence: non-recurrent Qualified Code(s): J01.90 - Acute sinusitis, unspecified Pharyngitis Qualifiers: Pharyngitis/tonsillitis etiology: unspecified etiology Qualified Code(s): J02.9 - Acute pharyngitis, unspecified Disposition: Home, Self-Care Condition on Discharge: Good Instructions: DI for Sinusitis Additional Instructions: Drink plenty of fluids. Take tylenol or ibuprofen for pain or fever. Take the medications as directed. Follow up with your regular doctor. GO TO THE ER FOR ANY WORSENING SYMPTOMS Quarantine until you know the results of your covid-19 test. If it is positive, the health department should call you and give you further instructions about your length of Quarantine and other things. Notify your school or workplace of your results and follow their instructions regarding return to work/school. Prescriptions: Promethazine/Dextromethorphan [Promethazine-Dm Syrup] 5 ml PO Q6HP PRN #240 ml PRN Reason: Cough Transmission Status: Received by [id number] Benzonatate [Benzonatate 100mg cap] 100 mg PO TIDP PRN #30 cap PRN Reason: Cough Transmission Status: Received by [facility] methylPREDNISolone [Medrol] 4 mg PO DIRECTED 6 Days #21 packet Transmission Status: Received by [facility] Cefdinir [Omnicef 300mg Capsule] 300 mg PO BID #20 cap Transmission Status: Received by [id number] Referrals: Adelaide Bhatti [Primary Care Provider] - Time of Disposition: 14:31 Medical Decision Making - Medical Records Medical records reviewed: No: I reviewed the patient's medical records. - Jorge Luis Inquiry Pt receiving controlled substance: No Vital Signs: 08/26/21 13:15 08/26/21 14:39 Temperature 98.6 F 98.6 F Temperature Source Oral Pulse Rate 104 H Pulse Rate [Right Brachial] 104 H Respiratory Rate 20 20 Blood Pressure 129/64 Blood Pressure [Right Arm] 129/64 Blood Pressure Mean [Right Arm] 85 Blood Pressure Source [Right Arm] Automatic Cuff Blood Pressure Position [Right Arm] Sitting 02 Sat by Pulse Oximetry 97 Oxygen Delivery Method Room Air - Lab Data Lab results reviewed: Yes: I reviewed the patient's lab results. Lab Results 08/26/21 13:40: Urine Color Yellow, Urine Appearance Cloudy, Urine pH 5.5, Ur Specific [place] 1.010, Urine Protein Negative, Urine Glucose (UA) Negative, Urine Ketones Negative, Urine Blood Trace, Urine Nitrate Negative, Urine Bilirubin Negative, Urine Urobilinogen 0.2, Ur Leukocyte Esterase Negative 08/26/21 14:24: Strep Scn Rapid Clinic Negative Orders (Tests/Meds): ORDERS Category Date Time Status Strep Screen Confirmation Stat Micro 08/26/21 14:24 Received [facility] [place] HPI - General Stated complaint: covid exposure/symptoms Time Seen by Provider: 08/26/21 13:55 Mode of Arrival: Ambulatory Source of Information: Patient Limitations: No Limitations Description of Symptoms (Recalled from Triage Doc. by RN): PATIENT C/O BODY ACHES, CONGESTION, AND PAIN TO RIGHT LUNG SINCE SUNDAY HEENT Symptoms (Recalled from RN notes): No Resp Symptoms (Recalled from RN notes): Yes Skin Symptoms (Recalled from RN notes): No MS Symptoms (Recalled from RN notes): No Functional Status (Recalled from RN notes): WNL - History of Present Illness Provider Complaint: She states that since yesterday she has had scratchy sore throat, cough, pleuritic right sided chest pain, fever, chills and she has felt bad. She has been vaccinated against covid-19. - Related Data Home Medications Medication Instructions Recorded Confirmed spironolactone 50 mg tablet 50 mg PO DAILY 11/15/19 08/16/21 torsemide 20 mg tablet 20 mg PO DAILY 11/15/19 08/16/21 Previous Rx's Medication Instructions Recorded Ibuprofen [Ibuprofen 600mg 600 mg PO Q6HP PRN #30 ta
[2021-08-26 14:35] LABS: UTC Strep Screen (Rapid) Negative (Negative)
[2021-08-26 14:39] VITALS: BP 129/64; PULSE 104; RESP 20; TEMP 37; O2SAT 97
== END 2021-08-26 14:42 | disposition home or self-care (01) ==
PROVIDERS: Emergency Provider Nurse Practitioner Family; PCP Family Medicine
DX: J01.90 Acute sinusitis, unspecified (principal); J02.9 Acute pharyngitis, unspecified; J20.9 Acute bronchitis, unspecified; F41.8 Other specified anxiety disorders; I10 Essential (primary) hypertension
CPT/HCPCS: 81003; 87880; 99203; C9803; G0463; U0003; U0005

== ENCOUNTER → 2022-03-14 14:51 | Outpatient (CLI) | payer BC, SELFPAY ==
--- NOTE | 2022-03-14 14:55 | MM_ITS ---
PROCEDURE INFORMATION: Exam: US Left Breast, Complete MG Bilateral Diagnostic Breast Tomosynthesis Exam date and time: 03/14/2022 2:47 PM Age: 51 years old Clinical indication: Left breast palpable lump; Mass, lump, or swelling; Additional info: Screening RT, palp lumps left (they were marked) , see HX sheet for additional notes TECHNIQUE: Imaging protocol: Complete ultrasound of all four quadrants of the Left breast and the retroareolar regions, including ultrasound of the axilla when performed. Bilateral Diagnostic tomosynthesis and 2D mammography including computer-aided detection (CAD) when performed. Unilateral or bilateral exam. COMPARISON: 1. MG MM DIG SCREENING MAMM BI W/CAD 04/08/2021 1:01 PM 2. MG DMSB DIG MAMM-SCREEN MARGIE W/CAD 08/02/2017 3:38 PM FINDINGS: MAMMOGRAPHY: Bilateral screening tomogram and spot compression tomograms in the region of palpable concern left breast The breasts are heterogeneously dense, which may obscure small masses. No new mass, architectural distortion, or suspicious calcifications have developed to suggest malignancy. No axillary adenopathy. ULTRASOUND: Ultrasound assessment of all 4 quadrants, retroareolar breast and axilla. Special attention to the upper inner left breast region of palpable concern as directed by the patient was performed. No suspicious solid or cystic mass is present. No benign-appearing solid or cystic mass is present. No architectural distortion or shadowing is present. No axillary adenopathy is present. IMPRESSION: No mammographic or sonographic evidence of malignancy. Recommend annual screening mammography unless otherwise clinically indicated. The decision to biopsy should be made on clinical grounds since a percentage of breast cancers are not detectable via ultrasound or mammography. Close clinical followup is recommended. ASSESSMENT: BI-RADS category 1: Negative
== END ==
PROVIDERS: PCP Family Medicine; Visit Provider Family Medicine
DX: Z12.31 Encounter for screening mammogram for malignant neoplasm of breast (principal); N63.20 Unspecified lump in the left breast, unspecified quadrant
CPT/HCPCS: 76641; 77062; 77066; G0279

== ENCOUNTER 2022-07-07 08:19 | Emergency (ER) | payer BC, SELFPAY ==
--- NOTE | 2022-07-07 08:26 | EXP.UTC ---
Discharge Plan Disposition Patient Disposition: Home, Self-Care Condition: Good Prescriptions Prescriptions: New azithromycin [Zithromax] 250 mg tablet 250 mg PO UD DOSE PK Qty: 6 0RF Rx Instructions: Take two (2) tablets today, then one (1) tablet days #2 thru #5 benzonatate [benzonatate] 100 mg capsule 100 mg PO TIDP PRN (Reason: Cough) Qty: 30 0RF methylprednisolone 4 mg Tablets,Dose Pack 4 mg PO DIRECTED Qty: 21 0RF No Action aspirin [Adult Low Dose Aspirin] 81 mg tablet,delayed release (DR/EC) 81 mg PO DAILY Qty: 30 5RF spironolactone 50 mg tablet 50 mg PO DAILY Label Comments: TAKE 1 TABLET BY MOUTH ONCE DAILY torsemide 20 mg tablet 20 mg PO DAILY Label Comments: TAKE 1 TABLET BY MOUTH ONCE DAILY ibuprofen 600 MG tablet 600 mg PO Q6HP PRN (Reason: Mild Pain) Qty: 30 0RF benzonatate 100 MG capsule 100 mg PO TIDP PRN (Reason: Cough) Qty: 30 0RF methylprednisolone 4 MG tablets,dose pack 4 mg PO DIRECTED 6 Days Qty: 21 0RF promethazine-DM 120 ML syrup 5 ml PO Q6HP PRN (Reason: Cough) Qty: 240 0RF cefdinir 300 MG capsule 300 mg PO BID Qty: 20 0RF fluticasone propionate 120 SPR/BOT bottle 1 spr NS DAILY Qty: 1 0RF Rx Instructions: each nostril daily Referrals Follow up/Referrals: Adelaide Bhatti [Primary Care Provider] - See instructions Activity Restrictions/Add. Instructions Additional Instructions/Restrictions: Drink plenty of fluids. Take tylenol or ibuprofen for pain or fever. Take the medications as directed. Follow up with your regular doctor. GO TO THE ER FOR ANY WORSENING SYMPTOMS Quarantine until you know the results of your covid-19 test. Notify your school or workplace of your results and follow their instructions regarding return to work/school. Don't start the oral steroids until tomorrow, since you had the shot here today. Clinical Impressions Clinical Impression: Sinusitis Stand Alone Forms Stand Alone Forms: Work/School Release Instructions Patient Instructions: Sinusitis, DI for Sinusitis Discharge ED Provider: Joshua Kenney [facility] [place] HPI General Stated complaint: Congestion, drainage, sinus pain, MOODY Time Seen by Provider: 07/07/22 08:26 History of Present Illness Provider Complaint: She c/o sinus congestion, ear pain and cough that began 5 days ago. Related Data Home Medications Medication Instructions Recorded Confirmed spironolactone 50 mg tablet 50 mg PO DAILY Fluid 11/15/19 07/07/22 torsemide 20 mg tablet 20 mg PO DAILY Fluid 11/15/19 07/07/22 Previous Rx's Medication Instructions Recorded ibuprofen 600 mg tablet 600 mg PO Q6HP PRN Mild Pain #30 08/02/20 tabs fluticasone propionate 50 1 spr NS DAILY ##1 11/12/20 mcg/actuation nasal spray,suspension aspirin 81 mg tablet,delayed 81 mg PO DAILY #30 tabs 08/10/21 release (Adult Low Dose Aspirin) benzonatate 100 mg capsule 100 mg PO TIDP PRN Cough #30 caps 08/26/21 cefdinir 300 mg capsule 300 mg PO BID #20 caps 08/26/21 methylprednisolone 4 mg tablets in 4 mg PO DIRECTED 6 days #21 08/26/21 a dose pack packets promethazine-DM 6.25 mg-15 mg/5 mL 5 ml PO Q6HP PRN Cough #240 mL 08/26/21 oral syrup azithromycin 250 mg tablet 250 mg PO UD DOSE PK #6 tabs 07/07/22 (Zithromax) benzonatate 100 mg capsule 100 mg PO TIDP PRN Cough #30 caps 07/07/22 methylprednisolone 4 mg tablets in 4 mg PO DIRECTED #21 tabs 07/07/22 a dose pack Allergies Allergy/AdvReac Type Severity Reaction Status Date / Time No Known Allergies Allergy Verified 07[facility]07[facility]22 08:37 [facility] Social History Smoking Status: Never smoker second hand exposure: No alcohol intake: never counseling provided: none substance use type: denies use current occupational status: other Travel in the last 8 weeks: None household members: family housing: [facility]
[2022-07-07 08:34] VITALS: BP 127/91; PULSE 94; RESP 16; TEMP 36.8; O2SAT 99; BMI 34.9
[2022-07-07 09:20] VITALS: BP 127/91; PULSE 94; RESP 16; TEMP 36.8
== END 2022-07-07 09:33 | disposition home or self-care (01) ==
PROVIDERS: Emergency Provider Nurse Practitioner Family; PCP Family Medicine
DX: J32.9 Chronic sinusitis, unspecified (principal)
CPT/HCPCS: 96372; 99212; G0463; J0696

== ENCOUNTER 2022-07-29 09:30 | Emergency (ER) | payer BC, SELFPAY ==
[2022-07-29 10:25] VITALS: BP 118/70; PULSE 101; RESP 20; TEMP 36.6; O2SAT 97; BMI 34.5
--- NOTE | 2022-07-29 10:38 | EXP.UTC ---
Discharge Plan Disposition Patient Disposition: Home, Self-Care Condition: Good Prescriptions Prescriptions: New amoxicillin-pot clavulanate 875-125 mg Tablet 1 tab PO Q12H Qty: 20 0RF prednisone 10 mg tablet 10 mg PO BID 5 Days Qty: 10 0RF No Action aspirin [Adult Low Dose Aspirin] 81 mg tablet,delayed release (DR/EC) 81 mg PO DAILY Qty: 30 5RF spironolactone 50 mg tablet 50 mg PO DAILY Label Comments: TAKE 1 TABLET BY MOUTH ONCE DAILY torsemide 20 mg tablet 20 mg PO DAILY Label Comments: TAKE 1 TABLET BY MOUTH ONCE DAILY ibuprofen 600 MG tablet 600 mg PO Q6HP PRN (Reason: Mild Pain) Qty: 30 0RF benzonatate 100 MG capsule 100 mg PO TIDP PRN (Reason: Cough) Qty: 30 0RF methylprednisolone 4 MG tablets,dose pack 4 mg PO DIRECTED 6 Days Qty: 21 0RF promethazine-DM 120 ML syrup 5 ml PO Q6HP PRN (Reason: Cough) Qty: 240 0RF cefdinir 300 MG capsule 300 mg PO BID Qty: 20 0RF azithromycin [Zithromax] 250 mg tablet 250 mg PO UD DOSE PK Qty: 6 0RF Rx Instructions: Take two (2) tablets today, then one (1) tablet days #2 thru #5 benzonatate [benzonatate] 100 mg capsule 100 mg PO TIDP PRN (Reason: Cough) Qty: 30 0RF methylprednisolone 4 mg Tablets,Dose Pack 4 mg PO DIRECTED Qty: 21 0RF fluticasone propionate 120 SPR/BOT bottle 1 spr NS DAILY Qty: 1 0RF Rx Instructions: each nostril daily Referrals Follow up/Referrals: Adelaide Bhatti [Primary Care Provider] - See instructions Activity Restrictions/Add. Instructions Additional Instructions/Restrictions: *Monitor Temp, Over the counter Motrin or Tylenol as directed/as needed Tylenol every 4 hours and Motrin every 6 hours (as long as your family doctor has told you that you can take it) for fever or pain. and straight to ER if unable to lower temp less than 101.0 after medication given *Warm salt water gargles may help to soothe the throat *Throat Lozenges? *Warm fluids like tea with honey may help to soothe the throat? *Sleep elevated *Humidifier/Vaporizer Take medication as prescribed Over the counter Coricidin HBP may help with congestion Follow up IMMEDIATELY for new or worsening symptoms or no Noticeable improvement over the next 48-72 hours. 911 for difficulty breathing or swallowing Clinical Impressions Clinical Impression: Sinusitis Instructions Patient Instructions: Sinusitis, DI for Sinusitis Discharge ED Provider: Rosie Szymanski [facility] [place] HPI General Stated complaint: Drainage, Congestion, Cough, Sore throat Time Seen by Provider: 07/29/22 10:38 History of Present Illness Provider Complaint: Patient states that she has been fighting sinusitis for almost a month States that she was seen and given injection of Rocephin and solumedrol and given a zpack States that it did help but then symptoms returned and worse States that she is having sinus pain and pressure draining in her throat making her throat sore and cough so she came back to get checked again Related Data Home Medications Medication Instructions Recorded Confirmed spironolactone 50 mg tablet 50 mg PO DAILY Fluid 11/15/19 07/07/22 torsemide 20 mg tablet 20 mg PO DAILY Fluid 11/15/19 07/07/22 Previous Rx's Medication Instructions Recorded ibuprofen 600 mg tablet 600 mg PO Q6HP PRN Mild Pain #30 08/02/20 tabs fluticasone propionate 50 1 spr NS DAILY ##1 11/12/20 mcg/actuation nasal spray,suspension aspirin 81 mg tablet,delayed 81 mg PO DAILY #30 tabs 08/10/21 release (Adult Low Dose Aspirin) benzonatate 100 mg capsule 100 mg PO TIDP PRN Cough #30 caps 08/26/21 cefdinir 300 mg capsule 300 mg PO BID #20 caps 08/26/21 methylprednisolone 4 mg tablets in 4 mg PO DIRECTED 6 days #21 08/26/21 a dose pack packets promethazine-DM 6.25 mg-15 mg/5 mL 5 ml PO Q6HP PRN Cough #240 mL 08/26/21 oral syrup azithromycin 250 mg tablet 250 mg PO UD DOSE PK #6 ta
[2022-07-29 10:48] VITALS: BP 118/70; PULSE 101; RESP 20; TEMP 36.6; O2SAT 97
== END 2022-07-29 10:51 | disposition home or self-care (01) ==
PROVIDERS: Emergency Provider Nurse Practitioner; PCP Family Medicine
DX: J32.9 Chronic sinusitis, unspecified (principal); J02.9 Acute pharyngitis, unspecified; R05.9 Cough, unspecified; R51.9 Headache, unspecified; F32.A Depression, unspecified; F41.9 Anxiety disorder, unspecified; Z79.1 Long term (current) use of non-steroidal anti-inflammatories (NSAID); Z79.51 Long term (current) use of inhaled steroids; Z79.52 Long term (current) use of systemic steroids; Z79.82 Long term (current) use of aspirin; Z79.899 Other long term (current) drug therapy
CPT/HCPCS: 99213; G0463

== ENCOUNTER 2022-11-29 18:15 | Emergency (ER) | payer OTHER, SELFPAY ==
[2022-11-29 18:30] VITALS: BP 146/78; PULSE 102; RESP 20; TEMP 37; O2SAT 98; BMI 35.9
--- NOTE | 2022-11-29 18:40 | EXP.UTC ---
Discharge Plan Disposition Patient Disposition: Home, Self-Care Condition: Good Prescriptions Prescriptions: New amoxicillin [amoxicillin] 500 mg tablet 500 mg PO TID 10 Days Qty: 30 0RF benzonatate [benzonatate] 100 mg capsule 100 mg PO TIDP PRN (Reason: Cough) Qty: 30 0RF methylprednisolone 4 mg Tablets,Dose Pack 4 mg PO DIRECTED Qty: 21 0RF No Action aspirin [Adult Low Dose Aspirin] 81 mg tablet,delayed release (DR/EC) 81 mg PO DAILY Qty: 30 5RF spironolactone 50 mg tablet 50 mg PO DAILY Label Comments: TAKE 1 TABLET BY MOUTH ONCE DAILY torsemide 20 mg tablet 20 mg PO DAILY Label Comments: TAKE 1 TABLET BY MOUTH ONCE DAILY ibuprofen 600 MG tablet 600 mg PO Q6HP PRN (Reason: Mild Pain) Qty: 30 0RF fluticasone propionate 120 SPR/BOT bottle 1 spr NS DAILY Qty: 1 0RF Rx Instructions: each nostril daily Referrals Follow up/Referrals: Adelaide Bhatti [Primary Care Provider] - See instructions Activity Restrictions/Add. Instructions Additional Instructions/Restrictions: Drink plenty of fluids. Take tylenol or ibuprofen for pain or fever. Take the medications as directed. Follow up with your regular doctor. GO TO THE ER FOR ANY WORSENING SYMPTOMS Throw your tooth brush away and get a new one. Don't start the oral steroids until tomorrow, since you had the shot here today. Clinical Impressions Clinical Impression: Strep throat Stand Alone Forms Stand Alone Forms: Work/School Release Instructions Patient Instructions: Strep Throat, DI for Strep Throat Discharge ED Provider: Joshua Kenney [facility] General Stated complaint: sORE THROAT,russell,bODY aCHES Time Seen by Provider: 11/29/22 18:40 History of Present Illness Provider Complaint: She states that for the past 2 days she has had sore throat, chills, body aches and low grade fever. Related Data Home Medications Medication Instructions Recorded Confirmed spironolactone 50 mg tablet 50 mg PO DAILY Fluid 11/15/19 11/29/22 torsemide 20 mg tablet 20 mg PO DAILY Fluid 11/15/19 11/29/22 Previous Rx's Medication Instructions Recorded ibuprofen 600 mg tablet 600 mg PO Q6HP PRN Mild Pain #30 08/02/20 tabs fluticasone propionate 50 1 spr NS DAILY ##1 11/12/20 mcg/actuation nasal spray,suspension aspirin 81 mg tablet,delayed 81 mg PO DAILY #30 tabs 08/10/21 release (Adult Low Dose Aspirin) amoxicillin 500 mg tablet 500 mg PO TID 10 days #30 tabs 11/29/22 benzonatate 100 mg capsule 100 mg PO TIDP PRN Cough #30 caps 11/29/22 methylprednisolone 4 mg tablets in 4 mg PO DIRECTED #21 tabs 11/29/22 a dose pack Allergies Allergy/AdvReac Type Severity Reaction Status Date / Time No Known Allergies Allergy Verified 11/29/22 18:48 [facility] Disclaimer: The information contained in this section may have been updated after the patient was seen, as this information can be updated by other users. 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 Anxiety Depression Social History Smoking Status: Never smoker second hand exposure: No alcohol intake: never counseling provided: none substance use type: denies use current occupational status: other Travel in the last 8 weeks: None household members: family housing: house ROS Obtained: Yes All systems reviewed & no additional complaints except as documented Constitutional Constitutional: Reports chills and Reports fever(s) Eyes Eyes: Denies eye discharge ENT Ears, Nose, Mouth, and Throat: Reports as per HPI Cardiovascular Cardiovascular: Denies chest pain Respiratory Respiratory: Denies chest congestion and Reports cough Gastrointestinal Gastrointestingal: Reports nausea; Denies abdominal pain, constipation, cramping, diarrhea or vomiting Musculoskeletal Musculoskeletal: Denies arthralgias Integumentary/Jessica
[2022-11-29 18:56] LABS: UTC Strep Screen (Rapid) Positive (Negative)
[2022-11-29 18:57] LABS: UTC Influenza A Antigen Negative (Negative); UTC Influenza B Antigen Negative (Negative)
[2022-11-29 20:21] VITALS: BP 146/78; PULSE 102; RESP 20; TEMP 37; O2SAT 98
== END 2022-11-29 20:21 | disposition home or self-care (01) ==
PROVIDERS: Emergency Provider Nurse Practitioner Family; PCP Family Medicine
DX: J02.0 Streptococcal pharyngitis (principal)
CPT/HCPCS: 87804; 87880; 96372; 99212; 99213; G0463; J0696

== ENCOUNTER 2022-12-23 15:19 | Emergency (ER) | payer OTHER, SELFPAY ==
[2022-12-23 15:20] VITALS: BP 153/89; PULSE 112; RESP 20; TEMP 37; O2SAT 100; BMI 35.1
--- NOTE | 2022-12-23 15:51 | EXP.UTC ---
Discharge Plan Disposition Patient Disposition: Home, Self-Care Condition: Good Prescriptions Prescriptions: New prednisone 10 mg tablet 10 mg PO DIRECTED 9 Days Qty: 21 0RF Rx Instructions: Take 4 tablets daily for 3 days, then take 2 tablets daily for 3 days, then take 1 tablet daily for 3 days, then stop. hydroxyzine pamoate [Vistaril] 25 mg capsule 25 mg PO Q6H PRN (Reason: itching) Qty: 30 0RF triamcinolone acetonide 0.025 % cream 1 applic topical BIDP PRN (Reason: itching) Qty: 80 0RF No Action aspirin [Adult Low Dose Aspirin] 81 mg tablet,delayed release (DR/EC) 81 mg PO DAILY Qty: 30 5RF spironolactone 50 mg tablet 50 mg PO DAILY Label Comments: TAKE 1 TABLET BY MOUTH ONCE DAILY torsemide 20 mg tablet 20 mg PO DAILY Label Comments: TAKE 1 TABLET BY MOUTH ONCE DAILY Referrals Follow up/Referrals: Adelaide Bhatti [Primary Care Provider] - See instructions Activity Restrictions/Add. Instructions Additional Instructions/Restrictions: Start listing penicillin and amoxicillin as your allergy. Don't start the oral steroids (prednisone) until tomorrow. Don't put the topical steroids (triamcinolone) on your face or your groin. Follow up with your regular doctor. GO TO THE ER FOR ANY WORSENING SYMPTOMS OR CONCERNS The vistaril will make you drowsy, so don't drive or operate heavy machinery after taking it. Vistaril is very similar to benedryl, so don't take both of these. The vistaril should help your itching more than the benedryl you have been taking though. Clinical Impressions Clinical Impression: Allergic reaction, Adverse drug reaction Instructions Patient Instructions: DI for Adverse Drug Reaction -- Allergic, Prednisone, Methylprednisolone Injection Discharge ED Provider: Joshua Kenney [facility] General Stated complaint: rash Mode of Arrival: Ambulatory Source of Information: Patient Limitations: No Limitations Time Seen by Provider: 12/23/22 15:51 Description of Symptoms (Recalled from Triage Doc. by RN): Rash all over body for weeks. She had strep 2-3 weeks ago and took amoxicillin HEENT Symptoms (Recalled from RN notes): No Resp Symptoms (Recalled from RN notes): No Skin Symptoms (Recalled from RN notes): Yes MS Symptoms (Recalled from RN notes): No Functional Status (Recalled from RN notes): n/a History of Present Illness Provider Complaint: She states that for the past 1 week she has had a rash on her body. She was treated for strep with amoxicillin. She started the amoxicillin on . A few days before she finished the amoxicillin this rash started to appear. Since then the rash has spread to be on her entire body. It is not on her face. Related Data Home Medications Medication Instructions Recorded Confirmed spironolactone 50 mg tablet 50 mg PO DAILY Fluid 11/15/19 12/23/22 torsemide 20 mg tablet 20 mg PO DAILY Fluid 11/15/19 12/23/22 Previous Rx's Medication Instructions Recorded aspirin 81 mg tablet,delayed 81 mg PO DAILY #30 tabs 08/10/21 release (Adult Low Dose Aspirin) hydroxyzine pamoate 25 mg capsule 25 mg PO Q6H PRN itching #30 caps 12/23/22 (Vistaril) prednisone 10 mg tablet 10 mg PO DIRECTED 9 days #21 12/23/22 tabs triamcinolone acetonide 0.025 % 1 applic topical BIDP PRN itching 12/23/22 topical cream #80 grams Allergies Allergy/AdvReac Type Severity Reaction Status Date / Time amoxicillin Allergy Mild Rash Verified 12/23/22 16:59 Penicillins Allergy Mild Rash Verified 12/23/22 16:59 Worker's Comp Is this a Worker's Comp case?: No [facility] Disclaimer: The information contained in this section may have been updated after the patient was seen, as this information can be updated by other users. 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 Anxiety Depression Social History Smoking Status: Never smoker
[2022-12-23 17:07] VITALS: BP 153/89; PULSE 112; RESP 20; TEMP 37; O2SAT 100
== END 2022-12-23 17:05 | disposition home or self-care (01) ==
PROVIDERS: Emergency Provider Nurse Practitioner Family; PCP Family Medicine
DX: L27.0 Generalized skin eruption due to drugs and medicaments taken internally (principal); T36.0X5A Adverse effect of penicillins, initial encounter
CPT/HCPCS: 96372; 99212; 99214; G0463

== ENCOUNTER → 2023-01-13 08:57 | Outpatient (CLI) | payer OTHER, SELFPAY ==
--- NOTE | 2023-01-13 09:37 | ECG_ITS ---
APPROVED REPORT Exam: Resting ECG HR:75 bpm ECG Measurements Heart Rate 75 AXES WI 154 P 20 QRSd 76 QRS 53 QT 378 T 47 QTc 407 Conclusion SINUS RHYTHM LOW QRS VOLTAGE IN PRECORDIAL LEADS [QRS DEFLECTION < 1.0 mV IN CHEST LEADS] BORDERLINE ECG UNCONFIRMED REPORT Electronically signed by : Omar Ca MD 01/13/2023 20:20:48
[2023-01-13 09:51] LABS: Basophils # 0.1 K/mm3 (0-0.2); Basophils % 0.5 % (0.1-2.0); Eosinophils # 0.3 K/mm3 (0.0-0.4); Eosinophils % 3.2 % (0.1-12.0); Hematocrit 41.7 % (37.0-47.0); Hemoglobin 13.7 g/dL (12.2-16.2); Lymphocytes # 2.8 K/mm3 (0.7-4.5); Lymphocytes % 32.9 % (10-50); Mean Corpuscular HGB Conc 32.8 g/dL (31.8-35.4); Mean Corpuscular Hemoglobin 29.6 pg (27.0-31.2); Mean Corpuscular Volume 90.2 fl (81-99); Mean Platelet Volume 7.3 fl (7.4-10.4); Monocytes # 0.4 K/mm3 (0.1-1.0); Neutrophils % 58.3 % (37.0-80.0); Platelet Count 298 K/mm3 (142-424); Red Blood Count 4.63 M/mm3 (4.20-5.40); Red Cell Distribution Width 16.6 % (11.5-17.5); White Blood Count 8.6 K/mm3 (4.8-10.8)
[2023-01-13 09:57] LABS: Hemoglobin A1C 5.7 % (4.0-6.0)
[2023-01-13 10:05] LABS: Alanine Aminotransferase 42 U/L (12-78); Albumin Level 4.8 g/dl (3.5-5.0); Albumin/Globulin Ratio 1.8 (1.1-1.8); Alkaline Phosphatase 67 U/L (38-126); Anion Gap 11.3 mEq/L (5-15); Aspartate Amino Transferase 26 U/L (14-36); Bilirubin,Total 0.4 mg/dl (0.2-1.3); Blood Urea Nitrogen 16 mg/dl (7-17); Calcium 9.7 mg/dl (8.4-10.2); Carbon Dioxide 29 mmol/L (22.0-30.0); Chloride 104 mmol/L (98-107); Estimated Glomerular Filt Rate 59 ml/min (>60); GFR (African American) 71 ML/MIN (>60); Globulin 2.7 g/dL (1.3-3.2); Glucose 108 mg/dl (74-100); Potassium 4.3 mmoL/L (3.5-5.1); Sodium 140 mmol/L (136-145); Total Protein,Serum 7.5 g/dl (6.3-8.2)
[2023-01-13 10:06] LABS: Amphetamine/Metha Screen,Urine Negative ng/ml (<1000)
[2023-01-13 10:07] LABS: Barbiturates Screen,Urine Negative ng/ml (<200); Benzodiazepines Screen,Urine Negative ng/ml (<200)
[2023-01-13 10:08] LABS: Cannabinoid Screen,Urine Negative ng/ml (<50); Cocaine Screen,Urine Negative ng/ml (<300)
[2023-01-13 10:09] LABS: Methadone Screen,Urine Negative ng/ml (<300)
[2023-01-13 10:10] LABS: Opiate Screen,Urine Negative ng/ml (<300); Phencyclidine Screen,Urine Negative ng/ml (<25)
[2023-01-13 10:21] LABS: T4 (Thyroxine) 8.7 ug/dl (5.53-11.0)
[2023-01-13 10:35] LABS: Thyroid Stimulating Hormone 1.62 uIU/mL (0.465-4.68)
[2023-01-13 10:41] LABS: Iron 77 ug/dL (37-170)
[2023-01-13 11:11] LABS: Vitamin B12 451 pg/mL (239-931)
[2023-01-14 11:08] LABS: Triiodothyronine (T3) Total 124 ng/dL (71-180)
== END ==
LOC: LAB 09:00
PROVIDERS: Psychiatry & Neurology Psychiatry; PCP Family Medicine
DX: F41.9 Anxiety disorder, unspecified (principal); F33.9 Major depressive disorder, recurrent, unspecified; Z79.899 Other long term (current) drug therapy
CPT/HCPCS: 36415; 80053; 80305; 82607; 82746; 83036; 83540; 84436; 84443; 84480; 85025; 93005

== ENCOUNTER 2023-01-14 08:53 | Emergency (ER) | payer OTHER, SELFPAY ==
[2023-01-14 09:00] VITALS: BP 116/86; PULSE 85; RESP 19; TEMP 36.9; O2SAT 98; BMI 34.2
--- NOTE | 2023-01-14 09:18 | EXP.UTC ---
Discharge Plan Disposition Patient Disposition: Home, Self-Care Condition: Good Prescriptions Prescriptions: New benzonatate 100 mg capsule 100 mg PO TID PRN (Reason: cough) Qty: 30 0RF guaifenesin [Mucinex] 600 mg tablet extended release 12hr 1,200 mg PO BID PRN (Reason: cough/congestion) Qty: 20 0RF azithromycin [Zithromax Z-Pola] 250 mg tablet See Rx Instructions .ROUTE .COMPLEX 5 Days Qty: 6 0RF Rx Instructions: For 250 mg dose pack: take 500 mg today (day 1), then 250 mg for 4 days (days 2-5) No Action aspirin [Adult Low Dose Aspirin] 81 mg tablet,delayed release (DR/EC) 81 mg PO DAILY Qty: 30 5RF spironolactone 50 mg tablet 50 mg PO DAILY Label Comments: TAKE 1 TABLET BY MOUTH ONCE DAILY torsemide 20 mg tablet 20 mg PO DAILY Label Comments: TAKE 1 TABLET BY MOUTH ONCE DAILY prednisone 10 mg tablet 10 mg PO DIRECTED 9 Days Qty: 21 0RF Rx Instructions: Take 4 tablets daily for 3 days, then take 2 tablets daily for 3 days, then take 1 tablet daily for 3 days, then stop. hydroxyzine pamoate [Vistaril] 25 mg capsule 25 mg PO Q6H PRN (Reason: itching) Qty: 30 0RF triamcinolone acetonide 0.025 % cream 1 applic topical BIDP PRN (Reason: itching) Qty: 80 0RF Referrals Follow up/Referrals: Adelaide Bhatti [Primary Care Provider] - See instructions Activity Restrictions/Add. Instructions Additional Instructions/Restrictions: Start antibiotic today. Be sure to complete entire prescription even if feeling better Monitor temp. Tylenol every 4 hours as needed and / or ibuprofen every 6 hours as needed ( As long as your primary care physician has told you that it ok to take both. For fever/aches/pains ER if no less than 101 despite Tylenol or Motrin Humidifier/vaporizer or hot steamy shower Inhaler every 4-6 hours as needed like we discussed. If unsure how to use it, ask pharmacist to demonstrate how. Should help open airways and improve cough, wheezing, and shortness of breath Mucinex during the day for your cough and cough suppressant only at night. Be sure to drink lots of water. *Tessalon Perles will not cause drowsiness but use at bedtime to help stop cough so that you may get some rest. *Start steroid today. Helps with inflammation therefore, cough and wheezing. Follow directions on the package. Reviewed side effects. Patient reports taking them before. Follow up IMMEDIATELY for new or worsening of symptoms OR no noticeable improvement over the next 48-72 hours. 911 immediately for any life threatening symptoms such as chest pain or difficulty breathing Clinical Impressions Clinical Impression: Bronchitis Instructions Patient Instructions: Acute Bronchitis Discharge ED Provider: Rosie Szymanski [facility] HPI General Stated complaint: Chest congestion, cough, wheezing Mode of Arrival: Ambulatory Source of Information: Patient Limitations: No Limitations Time Seen by Provider: 01/14/23 09:18 Description of Symptoms (Recalled from Triage Doc. by RN): PATIENT C/O SORE THROAT AND CHEST CONGESTION X 4 DAYS HEENT Symptoms (Recalled from RN notes): Yes Resp Symptoms (Recalled from RN notes): No Skin Symptoms (Recalled from RN notes): No MS Symptoms (Recalled from RN notes): No Functional Status (Recalled from RN notes): WNL History of Present Illness Provider Complaint: Patient states that she has been having sore throat, chest congestion and cough for about 4 days States that it yang in her throat and chest at times when she coughs Denies fever and chills but states that today she was feeling worse so she came in Related Data Home Medications Medication Instructions Recorded Confirmed spironolactone 50 mg tablet 50 mg PO DAILY Fluid 11/15/19 12/23/22 torsemide 20 mg tablet 20 mg PO DAILY Fluid 11/15/19 12/23/22 Previous Rx's Medication Instructions Recorded aspirin 81 mg tablet,delayed
[2023-01-14 09:34] LABS: UTC Strep Screen (Rapid) Negative (Negative)
[2023-01-14 09:35] VITALS: BP 116/86; PULSE 85; RESP 19; TEMP 36.9; O2SAT 98
== END 2023-01-14 09:37 | disposition home or self-care (01) ==
PROVIDERS: Emergency Provider Nurse Practitioner; PCP Family Medicine
DX: J20.9 Acute bronchitis, unspecified (principal)
CPT/HCPCS: 87880; 99212; 99214; G0463

== ENCOUNTER → 2023-02-17 10:09 | Outpatient (CLI) | payer OTHER, SELFPAY ==
[2023-02-17 10:38] LABS: Basophils # 0.1 K/mm3 (0-0.2); Basophils % 0.6 % (0.1-2.0); Eosinophils # 0.4 K/mm3 (0.0-0.4); Eosinophils % 5.8 % (0.1-12.0); Hematocrit 41.1 % (37.0-47.0); Hemoglobin 13.5 g/dL (12.2-16.2); Lymphocytes # 2.3 K/mm3 (0.7-4.5); Lymphocytes % 30.3 % (10-50); Mean Corpuscular Hemoglobin 30.2 pg (27.0-31.2); Mean Corpuscular Volume 91.4 fl (81-99); Mean Platelet Volume 7.4 fl (7.4-10.4); Monocytes # 0.4 K/mm3 (0.1-1.0); Monocytes % 4.8 % (1.7-9.3); Neutrophils # 4.4 K/mm3 (1.8-7.8); Neutrophils % 58.4 % (37.0-80.0); Platelet Count 284 K/mm3 (142-424); Red Blood Count 4.49 M/mm3 (4.20-5.40); Red Cell Distribution Width 16.6 % (11.5-17.5); White Blood Count 7.4 K/mm3 (4.8-10.8)
[2023-02-17 11:00] LABS: Alanine Aminotransferase 50 U/L (12-78); Albumin Level 4.8 g/dl (3.5-5.0); Albumin/Globulin Ratio 1.8 (1.1-1.8); Alkaline Phosphatase 83 U/L (38-126); Anion Gap 19.1 mEq/L (5-15); Aspartate Amino Transferase 36 U/L (14-36); Bilirubin,Total 0.5 mg/dl (0.2-1.3); Blood Urea Nitrogen 14 mg/dl (7-17); Calcium 9.5 mg/dl (8.4-10.2); Carbon Dioxide 28 mmol/L (22.0-30.0); Chloride 96 mmol/L (98-107); Chol/HDL Ratio 4.9 (1-3.5); Cholesterol 214 mg/dl (140-200); Estimated Glomerular Filt Rate 66 ml/min (>60); GFR (African American) 80 ML/MIN (>60); Globulin 2.7 g/dL (1.3-3.2); Glucose 110 mg/dl (74-100); HDL Cholesterol 44 mg/dl (40-60); Magnesium 1.9 mg/dl (1.6-2.3); Potassium 4.1 mmoL/L (3.5-5.1); Sodium 139 mmol/L (136-145); Total Protein,Serum 7.5 g/dl (6.3-8.2); Triglycerides 187 mg/dl (30-150); VLDL Cholesterol 37 mg/dL (0-40)
[2023-02-17 11:06] LABS: Erythrocyte Sedimentation Rate 13 mm/hr (0-20)
[2023-02-17 11:11] LABS: C-Reactive Protein 2.9 mg/L (0-4); Direct LDL Cholesterol 136.93 mg/dL (100-129)
[2023-02-17 11:18] LABS: 25-OH Vitamin D, Total 28.4 ng/mL (30-100); Free T4 (Free Thyroxine) 0.86 ng/dl (0.78-2.19)
[2023-02-17 11:30] LABS: Thyroid Stimulating Hormone 2.06 uIU/mL (0.465-4.68)
[2023-02-17 12:05] LABS: Vitamin B12 475 pg/mL (239-931)
[2023-02-18 08:12] LABS: Triiodothyronine (T3) Free 3.4 pg/mL (2.0-4.4)
[2023-02-19 15:09] LABS: Anti-Centromere B Antibodies <0.2 AI (0.0-0.9); Anti-DNA (DS) Ab Qn <1 IU/mL (0-9); Anti-Jo-1 <0.2 AI (0.0-0.9); Anti-Smith Antibody <0.2 AI (0.0-0.9); Antichromatin Antibodies <0.2 AI (0.0-0.9); Antiscleroderma-70 Antibodies <0.2 AI (0.0-0.9); RNP Antibodies <0.2 AI (0.0-0.9); Sjogren's Anti-SS-A <0.2 AI (0.0-0.9); Sjogren's Anti-SS-B <0.2 AI (0.0-0.9)
== END ==
PROVIDERS: PCP Family Medicine; Visit Provider Family Medicine
DX: Z00.00 Encounter for general adult medical examination without abnormal findings (principal); F41.9 Anxiety disorder, unspecified; L30.9 Dermatitis, unspecified; E55.9 Vitamin D deficiency, unspecified
CPT/HCPCS: 36415; 80053; 80061; 82306; 82607; 82746; 83735; 84439; 84443; 84481; 85025; 85651; 86140; 86225; 86235

== ENCOUNTER 2023-05-05 12:28 | Emergency (ER) | payer OTHER, SELFPAY ==
[2023-05-05 12:55] VITALS: BP 136/83; PULSE 112; RESP 18; TEMP 37.1; O2SAT 98; BMI 36.6
[2023-05-05 13:13] LABS: UTC Influenza A Antigen Negative (Negative); UTC Strep Screen (Rapid) Negative (Negative)
[2023-05-05 13:14] LABS: UTC Influenza B Antigen Negative (Negative)
--- NOTE | 2023-05-05 13:40 | EXP.UTC ---
Discharge Plan Disposition Patient Disposition: Home, Self-Care Condition: Good Prescriptions Prescriptions: New azithromycin [azithromycin] 250 mg tablet 250 mg PO DIRECTED Qty: 6 0RF Rx Instructions: Take two (2) tablets on day #1, then one (1) tablet day #2 thru #5 No Action aspirin [Adult Low Dose Aspirin] 81 mg tablet,delayed release (DR/EC) 81 mg PO DAILY Qty: 30 5RF spironolactone 50 mg tablet 50 mg PO DAILY Patient Comments: TAKE 1 TABLET BY MOUTH ONCE DAILY torsemide 20 mg tablet 20 mg PO DAILY Patient Comments: TAKE 1 TABLET BY MOUTH ONCE DAILY prednisone 10 mg tablet 10 mg PO DIRECTED 9 Days Qty: 21 0RF Rx Instructions: Take 4 tablets daily for 3 days, then take 2 tablets daily for 3 days, then take 1 tablet daily for 3 days, then stop. hydroxyzine pamoate [Vistaril] 25 mg capsule 25 mg PO Q6H PRN (Reason: itching) Qty: 30 0RF triamcinolone acetonide 0.025 % cream 1 applic topical BIDP PRN (Reason: itching) Qty: 80 0RF benzonatate 100 mg capsule 100 mg PO TID PRN (Reason: cough) Qty: 30 0RF guaifenesin [Mucinex] 600 mg tablet extended release 12hr 1,200 mg PO BID PRN (Reason: cough/congestion) Qty: 20 0RF azithromycin [Zithromax Z-Pola] 250 mg tablet See Rx Instructions .ROUTE .COMPLEX 5 Days Qty: 6 0RF Rx Instructions: For 250 mg dose pack: take 500 mg today (day 1), then 250 mg for 4 days (days 2-5) Referrals Follow up/Referrals: Adelaide Bhatti [Primary Care Provider] - See instructions Activity Restrictions/Add. Instructions Additional Instructions/Restrictions: Start antibiotic patient to take as ordered for a full length of time even if you feel better. Sinus infections do not get better overnight. It may take 2-3 days to notice much improvement so be sure to use conservative measures as discussed for symptoms. Flonase 1 spray each nostril daily to help with nasal congestion, sinus and ear pressure/information Increase fluids Humidifier/vaporizer as needed Tylenol and ibuprofen as needed for fever or pain. If symptoms do not improve or get worse return or be seen in the ER Follow-up with primary care this week Clinical Impressions Clinical Impression: Sinusitis Qualifiers: Sinusitis location: maxillary Chronicity: acute Recurrence: non-recurrent Qualified Code(s): J01.00 - Acute maxillary sinusitis, unspecified Instructions Patient Instructions: DI for Sinusitis Discharge ED Provider: Moisés ([facility])Jyoti [facility] [place] H[place] General Stated complaint: chest congestion, cough, body aches Mode of Arrival: Ambulatory Source of Information: Patient Limitations: No Limitations Time Seen by Provider: 05/05/23 13:40 Description of Symptoms (Recalled from Triage Doc. by RN): PATIENT C/O BODY ACHES, SORE THROAT, AND HEAD/CHEST CONGESTION X 2 DAYS HEENT Symptoms (Recalled from RN notes): Yes Resp Symptoms (Recalled from RN notes): No Skin Symptoms (Recalled from RN notes): No MS Symptoms (Recalled from RN notes): No Functional Status (Recalled from RN notes): WNL History of Present Illness Provider Complaint: 52 yr old female presents for sore throat, body aches, chest congestion, sinus pressure and think yellow sinus congestion for 2 days Related Data Home Medications Medication Instructions Recorded Confirmed spironolactone 50 mg tablet 50 mg PO DAILY Fluid 11/15/19 12/23/22 torsemide 20 mg tablet 20 mg PO DAILY Fluid 11/15/19 12/23/22 Previous Rx's Medication Instructions Recorded aspirin 81 mg tablet,delayed 81 mg PO DAILY #30 tabs 08/10/21 release (Adult Low Dose Aspirin) hydroxyzine pamoate 25 mg capsule 25 mg PO Q6H PRN itching #30 caps 12/23/22 (Vistaril) prednisone 10 mg tablet 10 mg PO DIRECTED 9 days #21 12/23/22 tabs triamcinolone acetonide 0.025 % 1 applic topical BIDP PRN itching 12/23/22 topical cream #80 grams azithromycin 250 mg tablet See Rx Instructions PO .COMPLEX 5
[2023-05-05 13:45] VITALS: BP 136/83; PULSE 112; RESP 18; TEMP 37.1; O2SAT 98
== END 2023-05-05 13:48 | disposition home or self-care (01) ==
PROVIDERS: Emergency Provider Nurse Practitioner Family; PCP Family Medicine
DX: J01.00 Acute maxillary sinusitis, unspecified (principal); F41.9 Anxiety disorder, unspecified; F32.A Depression, unspecified
CPT/HCPCS: 87804; 87880; 99212; 99214; G0463

== ENCOUNTER 2024-03-08 10:13 | Outpatient (CLI) | payer OTHER, SELFPAY ==
[2024-03-08 10:55] LABS: Hemoglobin A1C 5.7 % (4.0-6.0)
== END 2024-03-08 23:59 | disposition home or self-care (01) ==
LOC: UTC.OUT 10:15 → LAB 10:21
PROVIDERS: PCP Family Medicine; Visit Provider Student in an Organized Health Care Education/Training Program
DX: Z78.0 Asymptomatic menopausal state (principal); Z79.899 Other long term (current) drug therapy
CPT/HCPCS: 36415; 83036

== ENCOUNTER 2024-07-29 11:03 | Emergency (ER) | payer BC, SELFPAY ==
--- NOTE | 2024-07-29 11:41 | ED_ITS ---
Discharge Plan Disposition Patient Disposition: Home, Self-Care Condition: Good Prescriptions Prescriptions: New azithromycin [Zithromax] 250 mg tablet 250 mg PO UD DOSE PK Qty: 6 0RF Rx Instructions: Take two (2) tablets today, then one (1) tablet days #2 thru #5 benzonatate 100 mg capsule 100 mg PO TIDP PRN (Reason: Cough) Qty: 30 0RF methylprednisolone 4 mg Tablets,Dose Pack 4 mg PO DIRECTED 6 Days Qty: 21 0RF Rx Instructions: Take 1 pack as directed for 6 days No Action spironolactone 50 mg tablet 50 mg PO DAILY Patient Comments: TAKE 1 TABLET BY MOUTH ONCE DAILY torsemide 20 mg tablet 20 mg PO DAILY Patient Comments: TAKE 1 TABLET BY MOUTH ONCE DAILY duloxetine 20 mg capsule,delayed release(DR/EC) 20 mg PO DAILY Patient Comments: TAKE 1 CAPSULE BY MOUTH TWICE DAILY Referrals Follow up/Referrals: Adelaide Bhatti [Primary Care Provider] - See instructions Activity Restrictions/Add. Instructions Additional Instructions/Restrictions: Drink plenty of fluids. Take tylenol or ibuprofen for pain or fever. Take the medications as directed. Follow up with your regular doctor. GO TO THE ER FOR ANY WORSENING SYMPTOMS Clinical Impressions Clinical Impression: Pharyngitis Sinusitis Qualifiers: Sinusitis location: maxillary Chronicity: acute Recurrence: non-recurrent Qualified Code(s): J01.00 - Acute maxillary sinusitis, unspecified Stand Alone Forms Stand Alone Forms: Work/School Release Instructions Patient Instructions: Sinusitis, DI for Sinusitis Print Language Print Language: Citizen Of [place] Discharge ED Provider: Joshua Kenney [facility] General Stated complaint: cough, congestion Time Seen by Provider: 07/29/24 11:41 Related Data Home Medications ?Medication ?Instructions ?Recorded ?Confirmed spironolactone 50 mg tablet 50 mg PO DAILY Fluid 11/15/19 07/29/24 torsemide 20 mg tablet 20 mg PO DAILY Fluid 11/15/19 07/29/24 duloxetine 20 mg capsule,delayed 20 mg PO DAILY 07/29/24 07/29/24 release Previous Rx's ?Medication ?Instructions ?Recorded azithromycin 250 mg tablet 250 mg PO UD DOSE PK #6 tabs 07/29/24 (Zithromax) benzonatate 100 mg capsule 100 mg PO TIDP PRN Cough #30 caps 07/29/24 methylprednisolone 4 mg tablets in 4 mg PO DIRECTED 6 days #21 tabs 07/29/24 a dose pack Allergies Allergy/AdvReac Type Severity Reaction Status Date / Time amoxicillin Allergy Mild Rash Verified 12/23/22 16:59 Penicillins Allergy Mild Rash Verified 12/23/22 16:59 [facility] Disclaimer: The information contained in this section may have been updated after the patient was seen, as this information can be updated by other users. 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) Smoking Status: Never smoker second hand exposure: No alcohol intake: never counseling provided: none substance use type: denies use current occupational status: other Travel in the last 8 weeks: None household members: family housing: house ROS Obtained: Yes All systems reviewed & no additional complaints except as documented Constitutional Constitutional: Reports chills and Reports fever(s) Eyes Eyes: Denies eye discharge ENT Ears, Nose, Mouth, and Throat: Reports as per HPI Cardiovascular Cardiovascular: Denies chest pain Respiratory Respiratory: Denies chest congestion and Reports cough Gastrointestinal Gastrointestingal: Reports nausea; Denies abdominal pain, constipation, cramping, diarrhea or vomiting Musculoskeletal Musculoskeletal: Denies arthralgias Integumentary/Breasts Skin/Breast: Denies rash Neurologic Neurologic: Denies paresthesias Physical Exam General General appearance: alert and in no apparent distress Head Head exam: atraumatic, normocephalic and normal inspection Eye Eye exam: Present normal appearance, PERRL and EOMI ENT ENT exam: Present mucous membranes moist and normal external ear exam Expanded ENT Exam TM/Canal exam: Bilateral TM: erythema and bulging Nose exam: Absent sinus tenderness Mouth exam: Present normal external inspection; Absent drooling Teeth exam: Present normal inspection Throat exam: Present tonsillar erythema, tonsillomegaly and tonsillar exudate Neck Neck exam: Present normal inspection, full ROM and trachea midline; Absent tenderness, meningismus or lymphadenopathy Chest Chest inspection: Present normal inspection and symmetric chest wall rise; Absent tenderness Respiratory Respiratory exam: Present normal lung sounds bilaterally; Absent respiratory distress, wheezes, stridor or accessory muscle use Cardiovascular Cardiovascular exam: Present regular rate and normal rhythm; Absent systolic murmur or diastolic murmur Abdominal Exam Abdominal exam: Present soft and normal bowel sounds; Absent distention, tenderness, guarding, rebound or rigidity Extremities Exam Extremities exam: Present normal inspection and normal capillary refill; Absent calf tenderness Back Exam Back exam: Present normal inspection and full ROM; Absent tenderness, CVA tenderness (R) or CVA tenderness (L) Neurological Exam Neurological exam: Present alert, oriented X3 and CN II-XII intact Psychiatric Psychiatric exam: Present normal affect and normal mood Skin Skin exam: Present warm, dry, intact and normal color Medical Decision Making Medical Records Medical records reviewed: No I reviewed the patient's medical records. Screening: Per USPSTF and CDC recommendations, given the prevalence of disease in our region, it is our hospital?s policy to screen for HIV and viral Hepatitis for all patients aged 18 and over and those with ongoing risk factors. Jorge Luis Inquiry Pt receiving controlled substance: No
[2024-07-29 11:45] VITALS: BP 135/79; PULSE 94; RESP 21; TEMP 36.8; O2SAT 99; BMI 37.8
[2024-07-29 12:18] VITALS: BP 135/79; PULSE 94; RESP 21; TEMP 36.8; O2SAT 99
== END 2024-07-29 12:23 | disposition home or self-care (01) ==
PROVIDERS: Emergency Provider Nurse Practitioner Family; PCP Family Medicine
DX: J02.9 Acute pharyngitis, unspecified (principal)
CPT/HCPCS: 99213; G0381

== ENCOUNTER → 2024-11-24 20:26 | Outpatient (CLI) | payer BC, SELFPAY | LOC: SL 20:30 | PROVIDERS: PCP Family Medicine; Visit Provider Specialist | DX: G47.33 Obstructive sleep apnea (adult) (pediatric) (principal) | CPT/HCPCS: 95810 ==

== ENCOUNTER 2025-01-17 11:03 | Outpatient (CLI) | payer BC, SELFPAY | END 2025-01-17 23:59 | disposition home or self-care (01) | LOC: LAB 11:07 | PROVIDERS: PCP Family Medicine; Visit Provider Family Medicine | DX: E26.9 Hyperaldosteronism, unspecified (principal) | CPT/HCPCS: 36415; 82088 ==

== ENCOUNTER 2025-03-03 19:41 | Outpatient (CLI) | payer BC, SELFPAY ==
[2025-03-03 20:28] LABS: Coronavirus 19, PCR Not Detected (NotDetected); Human Rhinovirus Not Detected (NotDetected); Influenza A, PCR Not Detected (NotDetected); Influenza B, PCR Not Detected (NotDetected); Respiratory Syncytial Virus Not Detected (NotDetected)
== END 2025-03-03 23:59 | disposition home or self-care (01) ==
LOC: LAB.DROPOF 03-04 09:57
PROVIDERS: PCP Nurse Practitioner; Visit Provider Nurse Practitioner
DX: J02.9 Acute pharyngitis, unspecified (principal)
CPT/HCPCS: 87631

== ENCOUNTER 2025-05-10 19:10 | Outpatient (CLI) | payer SELFPAY ==
--- OUTSIDE RECORDS SUMMARY | 2025-05-11 12:09 | XMS_ITS | Clinical Summary ---
Author Organization [facility] Address [address] [place] [id number] Care Team Providers Care Sales Apprentice Name Role Phone Unavailable Primary Care Provider Unavailabl e Medications spironolactone (ALDACTONE) 50 mg tablet Take 1 Tablet by mouth daily. Active methylPREDNISol one (MEDROL) 4 mg tab (dosepak) TAKE BY MOUTH DIRECTED ON INSIDE OF PACKAGE 07/29/2024 Active methylphenidate HCl 18 mg Tablet Extended Rel 24 hr (2) 08/13/2024 Activ e Social History Tobacco Use Types Packs/Day Years Used Date Smoking Tobacco: Never Assessed Comments Unknown Sex and Gender Information Value Date Recorded Sex Assigned at Not on file Legal Sex Female 10:18 AM EST Gender Identity Not on file Sexual Orientation Not on file Last Filed Vital Signs Vital Sign Reading Time Taken Comments Blood Pressure - - Pulse - - Temperature - - Respiratory Rate - - Oxygen Saturation - - Inhaled Oxygen Concentration - - Weight 89.8 kg (198 lb) 09/03/2024 9:14 AM EST Height 154.9 cm (5' 1 ) 09/03/2024 9:14 AM EST Body Mass Index 37.41 09/03/2024 9:14 AM EST Plan of Treatment Health Maintenance Due Date Last Done Comments Cologuard 1972 Colonoscopy 1972 Colorectal Cancer Screening 1972 FIT 1972 Lipid Screening 1990 Tetanus Vaccination (Every 10 Years) 1990 Cervical Cancer Screening 1993 Breast Cancer Screening 2022 Pneumococcal Vaccine: 50+ Ye ars (1 of 1 - PCV) 2022 Zoster-RZV(Shingrix) (1 of 2) 2022 COVID-19 Vaccine ( season) 2024 11/25/2021, 11/03/2020, 10/06/2020 BMI Counseling 10/01/2024 Depression Screening 10/01/2024 Influenza Vaccination (#1) 2025 Insurance
--- OUTSIDE RECORDS SUMMARY | 2025-05-11 12:09 | XMS_ITS | Patient Health Record ---
Author Organization 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 Banquet Name Role Phone Lovely Gallegos Unavailable [phone] Allergies No Known Allergies Reason For Referral No Information Medications Medication SIG (Take, Route, Fr equency, Duration) Notes Start Date End Date Status Torsemide Active Dexmethylphenidate HCl Active Spironolactone Activ e Social History Tobacco Use: Social History Observation Description Date Details (start date - stop date) Never Smoker NA - NA Sex Assigned At : Social History Observation Description Sex Assigned At Female Social History Tobacco Use: Social Info Question Answer Notes Tobacco Control (Standard) Tobacco use: Nonsmoker Plan Of Treatment No Information Insurance Providers Payer Name Payer Address Payer Phone Subscriber Number Group Number Insured Name Patient Relationship to Insured Coverage Start Date Coverage End Date Keith BALLESTEROS [address] [place] [address] [phone] [id number] Sara Castillo Self - patient is the insured Medical (General) History 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 History ICD Code anxiety depression
--- OUTSIDE RECORDS SUMMARY | 2025-05-11 12:09 | XMS_ITS | Clinical Summary ---
Author Organization [facility] Address [address] [place] [address] Care Team Providers Care Inspector [employer] Name Role Phone Adelaide Bhatti Primary Care Provider [phone] Social History Tobacco Use Types Packs/Day Years Used Date Smoking Tobacco: Never Assessed Abuse Screen Answer Date Recorded Unsafe at Home or Work/School Not on file Feels Threatened by Someone? Not on file 06/2023 Does Anyone Keep You from Co ntacting Others or Doint Things Outside the Home? Not on file 07/09/2023 Physical Sign of Abuse Present Not on file 1 Housing Stability Answer Date Recorded Current Living Arrangements Not on file 06/2023 Potentially Unsafe Housing Conditions Not on chloé e 07/09/2023 Family and Community Support Answer Nir e Recorded Help with Day-to-Day Activities Not on file 07/09/2023 Lonely or Isolated Not on file 07/09/2023 Employment Answer Date Recorded Do you want help finding or keeping work or a akila b? Not on file 07/09/2023 Disabilities Answer Date Recorded Concentrating, Remembering, or Making Decisions Difficulty Not on file 07/09/2023 Doing Errands Independently Difficulty Not on fi le 07/09/2023 Education Answer Date Recorded Help with school or training? Not on file Preferred Language Not on file 07/09/2023 Comments Unknown Sex and Gender Information Value Date Recorded Sex Assigned at Not on file Legal Sex Female 1:27 PM EDT Gender Identity Not on file Sexual Orientation Not on file Plan of Treatment Health Maintenance Due Date Last Done Comments ANNUAL PHYSICAL 1972 Annual Gynecologic Pelvic an d Breast Exam 1972 HEPATITIS C SCREENING 1972 TDAP/TD VACCINES (1 - Tdap) 1991 MAMMOGRAM 2012 COLOGUARD 2017 COLON CANCER SCREENING 5 YEA R SIGMOIDOSCOPY 2017 COLONOSCOPY 2017 [address]ECTAL CANCER SCREENING 2017 CT COLONOGRAPHY 2017 FECAL OCCULT BLOOD TEST 2017 FIT Testing (1 year) 2017 Pneumococcal Vaccine 50+ (1 of 1 - PCV) 2022 ZOSTER VACCINE (1 of 2) 2022 COVID-19 Vaccine (4 - season) 2024 11/25/2021, 11/03/2020, 10/06/2020 INFLUENZA VACCINE 07/01/[address] [place] [address] [place] [address] PPO Member Subscriber Plan / Payer (Ef fective 2023-Present) Name:Sara Castillo Relation to Subscriber:Self Name:Sara Castillo Payer ID:[id number] ([facility]) Type:Not on file Address: [facility] [address] [place] [id number] Care Teams Inspector [employer] Relationship Specialty Start Date End Date Adelaide Bhatti DO [address] [place] [id number] PCP - General Family Medicine 11/08/23
== END 2025-05-10 23:59 | disposition home or self-care (01) ==
LOC: LAB.DROPOF 05-11 11:58
PROVIDERS: PCP Student in an Organized Health Care Education/Training Program; Visit Provider Student in an Organized Health Care Education/Training Program
DX: N39.0 Urinary tract infection, site not specified (principal)
CPT/HCPCS: 87086; 87088

== ENCOUNTER 2025-05-24 09:04 | Observation (INO) | payer BC, SELFPAY ==
[2025-05-24] VITALS (31 sets, daily range): BP systolic 97–173; BP diastolic 50–94; PULSE 97–122; RESP 12–23; TEMP 36.6–38.1; O2SAT 90–100; BMI 39.6
--- NOTE | 2025-05-24 09:09 | XR_ITS ---
PROCEDURE INFORMATION: Exam: XR Chest Exam date and time: 05/24/2025 9:28 AM Age: 54 years old Clinical indication: Pain; Angina pectoris; Additional info: Soa/cp TECHNIQUE: Imaging protocol: Radiologic exam of the chest. Views: 1 view. COMPARISON: CR XR CHEST PORTABLE 05/24/2025 9:28 AM FINDINGS: Lungs: Unremarkable. No consolidation. Pleural spaces: Unremarkable. No pleural effusion. No pneumothorax. Heart/Mediastinum: Unremarkable. No cardiomegaly. Bones/joints: Unremarkable. IMPRESSION: No acute findings.
--- NOTE | 2025-05-24 09:12 | ECG_ITS ---
APPROVED REPORT Exam: Resting ECG HR:110 bpm ECG Measurements Heart Rate 110 AXES ID 157 P 61 QRSd 74 QRS 61 QT 314 T 48 QTc 379 Conclusion SINUS TACHYCARDIA LOW QRS VOLTAGE IN PRECORDIAL LEADS [QRS DEFLECTION < 1.0 mV IN CHEST LEADS] ABNORMAL RHYTHM ECG UNCONFIRMED REPORT Electronically signed by : RICHARD MULTANI, 05/25/2025 23:19:37
--- OUTSIDE RECORDS SUMMARY | 2025-05-24 09:12 | XMS_ITS | Clinical Summary ---
Author Organization [facility] Address [address] [place] [id number] Care Team Providers Care Manager Law Name Role Phone Unavailable Primary Care Provider [...]
--- OUTSIDE RECORDS SUMMARY | 2025-05-24 09:13 | XMS_ITS | Clinical Summary ---
Author Organization [facility] Address [address] [place] [address] Care Team Providers Care [employer] Name Role Phone Adelaide Bhatti Primary Care Provider [phone] Social History Tobacco Use Types Packs/Day Years [...] 10/06/2020 INFLUENZA VACCINE 07/01/[address] [place] [address] [place] [address] PPO Member Subscriber Plan / Payer (Ef fective 2023-Present) Name:Sara Castillo Relation to Subscriber:Self Name:Sara Castillo Payer ID:[id number] ([facility]) Type:Not on file Address: [facility] [id number] [place] [id number] Care Teams [employer] Relationship Specialty Start Date End Date Adelaide Bhatti DO [address] [place] [id number] PCP - General Family Medicine 11/08/23
--- OUTSIDE RECORDS SUMMARY | 2025-05-24 09:13 | XMS_ITS | Patient Health Record ---
Author Organization [facility] Address [address] [facility] [address] [place] [address] Care Team Providers Care Regional Ehs Manager Name Role Phone Lovely Gallegos Unavailable [phone] Allergies No Known Allergies Reason For Referral [...] Coverage End Date Keith BALLESTEROS [address] [place] [address] [id number] Sara Castillo Self - patient is the insured Medical (General) History 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 History ICD Code anxiety depression
--- NOTE | 2025-05-24 09:15 | ED_ITS ---
Discharge Plan Disposition Chief Complaint: Chest Pain Prescriptions Prescriptions: No Action spironolactone 50 mg tablet 50 mg PO DAILY Patient Comments: TAKE 1 TABLET BY MOUTH ONCE DAILY torsemide 20 mg tablet 20 mg PO DAILY Patient Comments: TAKE 1 TABLET BY MOUTH ONCE DAILY methylphenidate HCl 18 mg tablet extended release 24hr PO ofloxacin 0.3 % drops 10 drp otic (ear) DAILY 7 Days Qty: 10 0RF nitrofurantoin monohyd/m-cryst 100 mg capsule 100 mg PO Q12H 7 Days Qty: 14 0RF Rx Instructions: must administer with a meal/food duloxetine 20 mg capsule,delayed release(DR/EC) 20 mg PO DAILY Patient Comments: TAKE 1 CAPSULE BY MOUTH TWICE DAILY Referrals Follow up/Referrals: Adelaide Bhatti [Primary Care Provider, Medical] - See instructions Print Language Print Language: Polish Discharge ED Provider: Lyric Moya General Adult HPI General Chief complaint: Chest Pain Stated complaint: pain in upper breast area Time Seen by Provider: 05/24/25 09:09 History of Present Illness HPI narrative: Patient is a 54-year-old with past medical history significant for obesity prediabetes hyperlipidemia CHF presents to the emergency department for chest pain and shortness of breath. Patient was awoken from sleep overnight with chest pain that has progressively worsening that she feels like is a deep pressure beneath her left breast. Pain is 8 out of 10 worse whenever she takes a deep breath. Denies history of blood clot travel out side of [place] or recent surgery. Is not on blood thinners. Denies daily use of aspirin. Denies smoking or alcohol history. Denies history of exertional chest pain. No cough congestion fever. Associated nausea with her chest pain earlier. No radiation of chest pain. Patient reports she keeps a UTI and notes dysuria since yesterday. Chest pain is worse with any exertion. Prior surgical history of cholecystectomy Related Data Home Medications ?Medication ?Instructions ?Recorded ?Confirmed spironolactone 50 mg tablet 50 mg PO DAILY Fluid 11/1505/10/25 torsemide 20 mg tablet 20 mg PO DAILY Fluid 0 05/10/25 duloxetine 20 mg capsule,delayed 20 mg PO DAILY 05/10/25 release methylphenidate HCl 18 mg mg PO 05/10/25 05/10/25 tablet,extended release 24 hr Previous Rx's ?Medication ?Instructions ?Recorded nitrofurantoin 100 mg PO Q12H 7 days #14 ca ps 05/10/25 monohydrate/macrocrystals 100 mg capsule ofloxacin 0.3 % ear drops 10 drp otic (ear) DAILY 7 da ys #10 05/10/25 mL Allergies Allergy/AdvReac Type Severity Reaction Status Date / Time amoxicillin Allergy Mild Rash Verified 05/10/25 19:05 Penicillins Allergy Mild Rash Verified 05/10/25 19:05 [facility] Disclaimer: The information contained in this section may have been updated after the patient was seen, as this information can be updated by other users. 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 Depression Anxiety Social History Smoking Status: Never smoker second hand exposure: No alcohol intake: never counseling provided: none substance use type: denies use current occupational status: other Travel in the last 8 weeks?: None household members: family housing: house Have you lived/traveled outside US in past 30 days?: No Contact w/someone who lives/traveled outside US past 30 days?: No Exposure to someone with infectious disease in past 14 days?: No Do you have a fever (greater than 100.4 F or 38 C)?: No Have you tested positive for COVID-19?: No Exposed to someone with COVID-19 in past 14 days?: No Do you have a sore throat?: No Do you have a cough?: No Do you have any weakness?: No Do you have any diarrhea?: No Are you experiencing any unusual bleeding?: No Do you have any muscle aches/pain?: No Do you have any abdominal pain?: No Are you experiencing loss of taste or smell?: No Other 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 Have you received the Flu Vaccine for this season: No Have you received the Pneumonia Vaccine: No ROS Obtained: Yes All systems reviewed & no additional complaints except as documented Physical Exam General General appearance: alert, anxious, in distress and obese Comment: Uncomfortable sitting up in bed Eye Eye exam: Present PERRL and EOMI Chest Chest inspection: Present symmetric chest wall rise and tenderness (left lower rib pain); Absent rash Respiratory Respiratory exam: Present normal lung sounds bilaterally and respiratory distress (Tachypnea) Cardiovascular Cardiovascular exam: Present normal rhythm, tachycardia and other (Bilateral equal lower extremity nonpitting edema) Abdominal Exam Abdominal exam: Present soft; Absent distention or tenderness Back Exam Back exam: Absent CVA tenderness (R) or CVA tenderness (L) Neurological Exam Neurological exam: Present alert and oriented X3 Skin Skin exam: Present warm and dry Medical Decision Making Medical Records Screening: Per USPSTF and CDC recommendations, given the prevalence of disease in our region, it is our hospital?s policy to screen for HIV and viral Hepatitis for all patients aged 18 and over and those with ongoing risk factors. Jorge Luis Inquiry Pt receiving controlled substance: No Vital Signs: 05/24/25 09:12 05/24/25 09:16 05/24/25 09:33 Temperature 98.1 F Temperature Source Oral Pulse Rate 113 H 122 H Pulse Rate [Left Radial] 115 H Respiratory Rate 20 22 Blood Pressure 173/94 H 112/63 Blood Pressure [Right Arm] 173/94 H Blood Pressure Mean [Right Arm] 120 02 Sat by Pulse Oximetry 98 98 98 Oxygen Delivery Method Room Air 05/24/25 09:59 05/24/25 10:15 05/24/25 10:30 Temperature Temperature Source Pulse Rate 109 H 101 H 109 H Pulse Rate [Left Radial] Respiratory Rate 23 19 20 Blood Pressure 119/73 128/75 131/80 Blood Pressure [Right Arm] Blood Pressure Mean [Right Arm] 02 Sat by Pulse Oximetry 97 100 99 Oxygen Delivery Method 05/24/25 11:00 05/24/25 11:15 05/24/25 11:30 Temperature Temperature Source Pulse Rate 102 H 114 H 110 H Pulse Rate [Left Radial] Respiratory Rate 13 19 18 Blood Pressure 115/61 125/73 131/74 Blood Pressure [Right Arm] Blood Pressure Mean [Right Arm] 02 Sat by Pulse Oximetry 100 94 L 90 L Oxygen Delivery Method Room Air 05/24/25 11:45 05/24/25 11:48 05/24/25 11:53 Temperature 100.6 F H Temperature Source Oral Pulse Rate 116 H 115 H 114 H Pulse Rate [Left Radial] Respiratory Rate 14 18 Blood Pressure 117/67 108/62 L Blood Pressure [Right Arm] Blood Pressure Mean [Right Arm] 02 Sat by Pulse Oximetry 93 L 91 L 92 L Oxygen Delivery Method Room Air 05/24/25 12:00 Temperature Temperature Source Pulse Rate 119 H Pulse Rate [Left Radial] Respiratory Rate 18 Blood Pressure 116/58 L Blood Pressure [Right Arm] Blood Pressure Mean [Right Arm] 02 Sat by Pulse Oximetry 94 L Oxygen Delivery Method Lab Data Lab Results 05/24/25 09:17: WBC 19.7 H, RBC 4.44, Hgb 12.9, Hct 39.4, MCV 88.7, MCH 29.1, MCHC 32.7, RDW 15.9, Plt Count 211, MPV 9.1, Neut % (Auto) 79.2, Lymph % (Auto) 14.7, Rock % (Auto) 4.1, Eos % (Auto) 1.2, Baso % (Auto) 0.3, Neut # (Auto) 15.6 H, Lymph # (Auto) 2.9, Rock # (Auto) 0.8, Eos # (Auto) 0.2, Baso # (Auto) 0.1, Sodium 142, Potassium 4.2, Chloride 102, Carbon Dioxide 27, Anion Gap 17.2 H, BUN 16, Creatinine 1.00, Estimated Creat Clear 99, Estimated GFR 58 L, Est GFR ( Amer) 70, Glucose 146 H, Calcium 9.7, Total Bilirubin 0.6, AST 34, ALT 54, Alkaline Phosphatase 105, Troponin I < 0.01, NT-Pro-B Natriuret Pep < 20.0, Total Protein 8.6 H, Albumin 5.1 H, Globulin 3.5 H, Albumin/Globulin Ratio 1.5, Lipase 49 05/24/25 09:19: VBG pH 7.38, VBG pCO2 46.7, VBG pO2 40.5 H, VBG HCO3 26.8, VBG Total CO2 28.2 H, VBG O2 Saturation 73.1 H, VBG Base Excess 1.6, VBG Lactic Acid 3.1 H 05/24/25 11:44: Troponin I < 0.01 05/24/25 11:52: Lactate 2.8 H 05/24/25 11:59: SARS-CoV-2 (PCR) Not detected, Influenza A Untype (PCR) Not detected, Influenza Type B (PCR) Not detected 05/24/25 12:25: Urine Color Yellow, Urine Appearance Sl cloudy, Urine pH 6.5, Ur Specific [place] 1.010, Urine Protein 1+ A, Urine Glucose (UA) Negative, Urine Ketones Negative, Urine Blood 2+ A, Urine Nitrate Positive, Urine Bilirubin Negative, Urine Urobilinogen 0.2, Ur Leukocyte Esterase 2+ A, Urine RBC 10-20, Urine WBC 50-100, Ur Squamous Epith Cells 10-20, Urine Bacteria 2+ 05/24/25 09:17 05/24/25 09:17 Orders (Tests/Meds): ED MEDICATIONS Generic Name Dose Route Start Last Admin Trade Name Freq PRN Reason Stop Dose Admin Ceftriaxone Sodium 1 gm/ 50 mls @ 100 mls/hr 05/24/25 11:45 05/24/25 12:40 Sodium Chloride IV 06/03/25 11:44 Infused Q24H MIGUEL Infusion Discontinued Medications Generic Name Dose Route Start Last Admin Trade Name Freq PRN Reason Stop Dose Admin Acetaminophen 1,000 mg 05/24/25 10:21 05/24/25 10:52 Acetaminophen 500mg Tab PO 05/24/25 10:22 1,000 mg ONCE ONE Administration Acetaminophen 1,000 mg 05/24/25 12:17 05/24/25 12:33 Acetaminophen 500mg Tab PO 05/24/25 12:18 Not Given ONCE ONE Albuterol/Ipratropium 3 ml 05/24/25 10:21 05/24/25 10:51 Ipratropium/Albuterol 3 Ml Neb IH 05/24/25 10:22 3 ml ONCE ONE Administration Aspirin 325 mg 05/24/25 09:09 05/24/25 09:28 Aspirin 325mg Tablet PO 05/24/25 09:10 325 mg ONCE ONE Administration Doxycycline Hyclate 100 mg 05/24/25 12:44 05/24/25 12:56 Doxycycline Hycl 100 Mg Tablet PO 05/24/25 12:45 100 mg ONCE ONE Administration Lactated Ringer's 1,000 mls @ 999 mls/hr 05/24/25 11:49 05/24/25 12:10 Lactated Ringer's 1000 Ml Bag IV 05/24/25 12:49 999 mls/hr .Q1H1M ONE Administration Iopamidol 80 ml 05/24/25 09:45 05/24/25 09:46 Iopamidol-370 (76%);100ml Bottle IV 05/24/25 09:46 80 ml ONCE ONE Administration Ketorolac Tromethamine 15 mg 05/24/25 12:31 05/24/25 12:56 Ketorolac 15mg/Ml Vial IV 05/24/25 12:32 15 mg ONCE ONE Administration Methocarbamol 1,000 mg 05/24/25 10:22 05/24/25 10:52 Methocarbamol 500mg Tablet PO 05/24/25 10:23 1,000 mg ONCE ONE Administration Morphine Sulfate 4 mg 05/24/25 10:45 05/24/25 10:52 Morphine 4mg/Ml Syringe IV 05/24/25 10:46 4 mg ONCE ONE Administration Nitroglycerin 0.4 mg 05/24/25 09:16 05/24/25 09:28 Nitroglycerin 0.4mg Sl Tablet SL 05/24/25 09:17 0.4 mg ONCE ONE Administration Ondansetron HCl 4 mg 05/24/25 10:42 05/24/25 10:52 Ondansetron 4mg/2ml Vial IV 05/24/25 10:43 4 mg ONCE ONE Administration Sodium Chloride 10 ml 05/24/25 09:45 05/24/25 09:46 Sodium Chloride 0.9% 10ml Syr (Rad Only) IV 05/24/25 09:46 10 ml ONCE ONE Administration Sodium Chloride 50 ml 05/24/25 09:45 05/24/25 09:46 0.9 % Sodium Chloride 50 Ml Vial IV 05/24/25 09:46 50 ml ONCE ONE Administration ORDERS Category Date Time Status CTA Chest [CT angio chest PE protocol] Stat Cat Scan 05/24/25 09:30 Completed CXR --portable [XR chest portable] Stat Exams 05/24/25 09:09 Completed POCUS Point of Care (ER Only) Stat Exams 05/24/25 09:09 Completed Complete Blood Count Auto Diff Stat Lab 05/24/25 09:17 Completed Comprehensive Metabolic Panel Stat Lab 05/24/25 09:17 Completed Full Resp Panel w/COVID ([facility]) Routine Lab 05/24/25 11:56 Received Lactate Venous Stat Lab 05/24/25 11:59 Stop Req Lactic Acid Stat Lab 05/24/25 11:52 Completed Lipase Stat Lab 05/24/25 09:17 Completed NT Pro Brain Natriuretic Pep. Stat Lab 05/24/25 09:17 Completed Rapid PCR Covid and Flu A/B Stat Lab 05/24/25 11:59 Completed Troponin I Q3H Lab 05/24/25 11:44 Completed Troponin I Q3H Lab 05/24/25 15:15 Ordered Troponin I Stat Lab 05/24/25 09:17 Completed UA/RFX Microscopic Stat Lab 05/24/25 12:25 Completed Urine Microscopic Stat Lab 05/24/25 12:25 Completed Blood Culture Stat Micro 05/24/25 11:55 Received Urine Culture Stat Micro 05/24/25 12:25 Received VBG [Venous Blood Gas] Stat RT 05/24/25 09:19 Completed ECG Request Stat Y 05/24/25 09:09 Ordered EKG Request [ECG Request] Stat Y 05/24/25 09:39 Ordered HEART Score History (anamnesis): Highly suspicious ECG: Non-specific disturbance Age: 45-65 years Risk factors: Atherosclerosis history Troponin: 1-3x normal limit HEART Score: 7 Medical Decision Narrative: In summary, this 54-year-old female presents to the emergency department today with chest pain. On initial evaluation patient is tachycardic hypertensive baseline mental status. Differential diagnosis includes but is not limited to ACS PE arrhythmia heart failure exacerbation pneumonia urolithiasis pyelonephritis pancreatitis panic attack. Based on these concerns, I ordered CBC CMP lactate UA D-dimer lactate BNP lipase ECG personally interpreted demonstrates sinus tachycardia with T wave inversions in V1 without reciprocal changes. Repeat EKG with persistent sinus tachycardia and T wave inversions in V1 with no dynamic EKG changes Patient received 325 aspirin and 0.4 mg of nitro glycerin for treatment. Nitroglycerin decreased systolic blood pressure from 170-120 with improvement of tachypnea Labs personally reviewed demonstrate leukocytosis, lactate of 3.1, normal initial troponin and BNP. XR personally interpreted demonstrates no pneumothorax or pneumonia CT imaging personally interpreted demonstrate no aortic dissection, no PE, left lingula atelectasis which may be contirbuting to patient's symptoms. On reevaluation patient has improvement from 8 to a 4 of chest pain. Patient continues to report that is worse with deep inspiration and palpation of her left lower rib. Gave 1 dose of DuoNeb for potential atelectasis and multimodal pain control with Tylenol Robaxin and morphine. Patient developed a fever in the emergency department with Tylenol persistently tachycardic and tachypneic concerning for sepsis and pneumonia. Received 1 L fluid with repeat lactate of 2.8. Avoided further fluid resuscitation due to fluid overload status on physical exam. Negative for COVID or flu. Repeat walking saturation 92% on room air. UA with pyuria nitrite positive concerning for urinary tract infection which could also be etiology of sepsis. I had an interactive discussion with hospital medicine with recommendations to admit to their service for further evaluation. Critical Care Critical Care Time Critical Care Time: No
--- NOTE | 2025-05-24 09:16 | PC.NURSE ---
DR TAVERAS AT BEDSIDE
[2025-05-24] MEDS: NITROGLYCERIN 0.4MG SL TABLET 0.4 MG SL (09:28)
[2025-05-24] MEDS: ASPIRIN 325MG TABLET 325 MG PO (09:28)
[2025-05-24 09:29] LABS: Hematocrit 39.4 % (37.0-47.0); Hemoglobin 12.9 g/dL (12.2-16.2); Immature Granulocytes % 0.5 %; Mean Corpuscular HGB Conc 32.7 g/dL (31.8-35.4); Mean Corpuscular Hemoglobin 29.1 pg (27.0-31.2); Mean Corpuscular Volume 88.7 fl (81-99); Nucleated Red Blood Cells % 0 %; Platelet Count 211 K/mm3 (142-424); Red Blood Count 4.44 M/mm3 (4.20-5.40); Red Cell Distribution Width-SD 51.4 fL; White Blood Count 19.7 K/mm3 (4.8-10.8)
--- NOTE | 2025-05-24 09:30 | CT_ITS ---
PROCEDURE INFORMATION: Exam: CTA Chest With Contrast Exam date and time: 05/24/2025 9:46 AM Age: 54 years old Clinical indication: Pain; Angina pectoris; Additional info: colten LOZOYA TECHNIQUE: Imaging protocol: Computed tomographic angiography of the chest with contrast. Exam focused on the arteries. 3D rendering (Not supervised by radiologist): MIP and/or 3D reconstructed images were created by the technologist. Radiation optimization: All CT scans at this facility use at least one of these dose optimization techniques: automated exposure control; mA and/or kV adjustment per patient size (includes targeted exams where dose is matched to clinical indication); or iterative reconstruction. Contrast material: ISOVUE 370; Contrast volume: 80 ml; Contrast route: INTRAVENOUS (IV); COMPARISON: CR XR CHEST PORTABLE 05/24/2025 9:28 AM FINDINGS: Pulmonary arteries: Normal. No pulmonary emboli. Aorta: The thoracic aorta is nonaneurysmal and there is no suggestion of a dissection of the thoracic aorta. The thoracic aorta is normal. Lungs: Minor atelectatic changes in the lingula. The lungs are otherwise clear. Pleural spaces: Unremarkable. No pneumothorax. No pleural effusion. Heart: The heart is normal in size. No pericardial effusion. No coronary artery calcifications. Lymph nodes: There are small old calcified right hilar lymph nodes suggesting old granulomatous disease. Liver: Hepatic steatosis. Gallbladder and biliary ducts: Status post cholecystectomy. Bones/joints: No acute osseous lesions. Multilevel chronic degenerative changes in the lower cervical spine and throughout the thoracic spine. Soft tissues: Unremarkable. IMPRESSION: 1. No evidence of PE and the thoracic aorta is normal. 2. Minor atelectasis in the lingula. The lungs are otherwise clear. 3. Hepatic steatosis.
[2025-05-24 09:31] LABS: Lactate Venous 3.1 mmol/L (0.4-2.0); VBG HCO3 26.8 mmol/L (23-30); VBG PCO2 46.7 mmol/L (35-51); VBG PH 7.38 mmol/L (7.31-7.41); VBG PO2 40.5 mmol/L (28-40)
[2025-05-24 09:34] LABS: Albumin Level 5.1 g/dl (3.5-5.0); Chloride 102 mmol/L (98-107); Sodium 142 mmol/L (136-145)
[2025-05-24 09:35] LABS: Potassium 4.2 mmoL/L (3.5-5.1)
[2025-05-24 09:37] LABS: Alanine Aminotransferase 54 U/L (12-78); Alkaline Phosphatase 105 U/L (38-126); Anion Gap 17.2 mEq/L (5-15); Aspartate Amino Transferase 34 U/L (14-36); Bilirubin,Total 0.6 mg/dl (0.2-1.3); Blood Urea Nitrogen 16 mg/dl (7-17); Carbon Dioxide 27 mmol/L (22.0-30.0); Creatinine Clearance Estimated 99 mL/min (50-200); Creatinine,Serum 1.00 mg/dl (0.52-1.04); Estimated Glomerular Filt Rate 58 ml/min (>60); GFR (African American) 70 ML/MIN (>60)
[2025-05-24 09:38] LABS: Albumin/Globulin Ratio 1.5 (1.1-1.8); Calcium 9.7 mg/dl (8.4-10.2); Globulin 3.5 g/dL (1.3-3.2); Glucose 146 mg/dl (74-100); Lipase 49 U/L (23-300); Total Protein,Serum 8.6 g/dl (6.3-8.2)
[2025-05-24] MEDS: IOPAMIDOL-370 (76%);100ML BOTTLE 80 ML IV (09:46)
[2025-05-24] MEDS: 0.9 % SODIUM CHLORIDE 50 ML VIAL IV (09:46)
[2025-05-24] MEDS: SODIUM CHLORIDE 0.9% 10ML SYR (RAD ONLY) 10 ML IV (09:46)
[2025-05-24 09:47] LABS: NT Pro Brain Natriuretic Pep. < 20.0 pg/mL (0-125)
[2025-05-24 09:50] LABS: Troponin I < 0.01 ng/ml (0.00-0.034)
--- NOTE | 2025-05-24 09:53 | ECG_ITS ---
APPROVED REPORT Exam: Resting ECG HR:108 bpm ECG Measurements Heart Rate [address] 169 P 67 QRSd 80 QRS 66 QT 330 T 55 QTc 394 Conclusion SINUS TACHYCARDIA LOW QRS VOLTAGE IN PRECORDIAL LEADS [QRS DEFLECTION < 1.0 mV IN CHEST LEADS] ABNORMAL RHYTHM ECG UNCONFIRMED REPORT Electronically signed by : RICHARD MULTANI, 05/25/2025 23:19:28
[2025-05-24] MEDS: IPRATROPIUM/ALBUTEROL 3 ML NEB IH (10:51)
[2025-05-24] MEDS: MORPHINE 4MG/ML SYRINGE 4 MG IV (10:52)
[2025-05-24] MEDS: ACETAMINOPHEN 500MG TAB 1000 MG PO (10:52)
[2025-05-24] MEDS: METHOCARBAMOL 500MG TABLET 1000 MG PO ×2 (10:52→23:18)
[2025-05-24] MEDS: ONDANSETRON 4MG/2ML VIAL 4 MG IV (10:52)
[2025-05-24 12:01] LABS: Adenovirus,PCR Not Detected (NotDetected); Coronovirus HKU1,PCR Not Detected (NotDetected)
[2025-05-24 12:03] LABS: Coronavirus 19, PCR Not Detected (NotDetected); Influenza A, PCR Not Detected (NotDetected); Influenza B, PCR Not Detected (NotDetected)
[2025-05-24 12:03] LABS: Chlamydophila Pneumoniae, PCR Not Detected (NotDetected); Coronavirus 19, PCR Not Detected (NotDetected); Influenza A, PCR Not Detected (NotDetected); Influenza AH1, 2009 Not Detected (NotDetected); Influenza AH1, PCR Not Detected (NotDetected); Influenza AH3,PCR Not Detected (NotDetected); Influenza B, PCR Not Detected (NotDetected); Mycoplasma Pneumoniae, PCR Not Detected (NotDetected); Parainfluenza 1, PCR Not Detected (NotDetected); Parainfluenza 2, PCR Not Detected (NotDetected); Parainfluenza 3, PCR Not Detected (NotDetected); Parainfluenza 4, PCR Not Detected (NotDetected)
[2025-05-24] MEDS: CEFTRIAXONE 1 GM 1 GM in 0.9 % SODIUM CHLORIDE 50 ML IV (12:07)
[2025-05-24] MEDS: LACTATED RINGERS 1000ML 1,000 ML 999 ML IV (12:10)
[2025-05-24 12:39] LABS: Bilirubin,Urine Negative (Negative); Color,Urine YELLOW (Yellow); Glucose,Urine (UA) Negative (Negative); Ketones,Urine Negative (Negative); Leukocyte Esterase,Urine 2+ (Negative); PH,Urine 6.5 (5.0-8.5); Protein,Urine 1+ (Negative); Specific Gravity, Urine 1.010 (1.005-1.030); Urobilinogen,Urine 0.2 EU/dl (0.2)
[2025-05-24 12:45] LABS: Microscopic, Urine URINE MICROSCOPIC (MICROSCOPIC)
[2025-05-24 12:45] LABS: Troponin I < 0.01 ng/ml (0.00-0.034)
[2025-05-24 12:51] LABS: WBC,Urine 50-100 #/hpf (0-3)
[2025-05-24 12:52] LABS: Bacteria,Urine 2+ /lpf
[2025-05-24] MEDS: KETOROLAC 15MG/ML VIAL 15 MG IV ×2 (12:56→23:19)
[2025-05-24] MEDS: DOXYCYCLINE HYCL 100 MG TABLET PO (12:56)
--- NOTE | 2025-05-24 12:58 | PC.NURSE ---
SCOURER NOTIFIED OF ADMISSION
[2025-05-24 13:31] LABS: Reflex Lactic Add Lactic Reflex
--- NOTE | 2025-05-24 13:49 | PC.NURSE ---
Pt arrived to ICU @ this time
--- NOTE | 2025-05-24 13:50 | PC.NURSE ---
Patient arrived to ICU at this time. Patient brought up to ICU by wheelchair with ICU staff. Continuation of care plan.
[2025-05-24] MEDS: HEPARIN SODIUM 5,000 UNIT/ML VIAL 5000 UNIT SUBCUT ×2 (13:51→20:11)
[2025-05-24] MEDS: LACTATED RINGERS 1000ML 1,000 ML 50 ML IV (13:51)
--- NOTE | 2025-05-24 13:53 | HMH.PHAINT1 ---
Pharmacy Intervention Comments: CALLED [facility] TO VERIFY FILL HX OF TORSEMIDE, SPIRONOLACTONE, AND CYMBALTA. LAST FILLED FOR 90 DAY SUPPLY IN MARCH OF 2025. MIKEL
[2025-05-24 15:19] LABS: Lactic Acid Follow Up (RFLX 1) 2.6 mmol/L (0.7-2.1)
[2025-05-24 15:34] LABS: Troponin I < 0.01 ng/ml (0.00-0.034)
[2025-05-24 17:05] LABS: Reflex Lactic (2 hrs) Add Lactic Reflex
--- NOTE | 2025-05-24 17:22 | EXP.HP ---
History of Present Illness *Admission Date: 05/24/25 *Reason for visit:: fever, Chest pain *History of present illness: Patient is a 54-year-old female with past medical history of anxiety depression hypertension morbid obesity who presents to the hospital due to complaints of left-sided chest pain and shortness of breath according to the patient she has chest pain when she takes a deep breath otherwise denied nausea vomiting radiation of pain. Patient mentions she has been feeling sick for past 2 weeks, had runny nose and sore throat, she also had sick kids at home. On further evaluation patient was found to have leukocytosis, lactic acidosis as well as fever, patient complains of urinary frequency. [facility] Disclaimer: The information contained in this section may have been updated after the patient was seen, as this information can be updated by other users. 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 (Updated 05/24/25 @ 13:47 by Graciela Thomas RN) Frequent UTI Hyperlipidemia History of prediabetes CHF (congestive heart failure) Depression Anxiety Surgical History (Updated 05/24/25 @ 14:17 by Graciela Thomas RN) History of kidney surgery History of Hx laparoscopic cholecystectomy Family History (Updated 05/24/25 @ 14:17 by Graciela Thomas RN) Other Family history of cancer Family history of coronary artery disease Family history of diabetes mellitus (DM) Family history of myocardial infarction Social History (Updated 05/24/25 @ 14:18 by Graciela Thomas RN) Smoking Status: Never smoker second hand exposure: No alcohol intake: never counseling provided: none substance use type: denies use current occupational status: employed Travel in the last 8 weeks?: None household members: family housing: house Have you lived/traveled outside [place] in past 30 days?: No Contact w/someone who lives/traveled outside [place] past 30 days?: No Exposure to someone with infectious disease in past 14 days?: No Do you have a fever (greater than 100.4 F or 38 C)?: No Have you tested positive for COVID-19?: No Exposed to someone with COVID-19 in past 14 days?: No Do you have a sore throat?: No Do you have a cough?: No Do you have any weakness?: Yes Are you experiencing any nausea/vomitting?: No Do you have any diarrhea?: No Are you experiencing any unusual bleeding?: No Do you have any muscle aches/pain?: No Do you have any abdominal pain?: No Are you experiencing loss of taste or smell?: No Other 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 Have you received the Flu Vaccine for this season: Yes Have you received the Pneumonia Vaccine: No Review of Systems Review of Systems Review of systems:: pertinent systems reviewed and negative unless documented below Meds Home Medications and Allergies Home Medications ?Medication ?Instructions ?Recorded ?Confirmed ?Type spironolactone 50 mg tablet 50 mg PO DAILY Fluid 11/15/19 05/24/25 History torsemide 20 mg tablet 20 mg PO DAILY Fluid 11/15/19 05/24/25 History duloxetine 20 mg capsule,delayed 20 mg PO BID 07/29/24 05/24/25 History release methylphenidate HCl 36 mg 36 mg PO DAILY 05/24/25 05/24/25 History tablet,extended release 24 hr New Prescriptions to Start Prescriptions: Allergies Allergy/AdvReac Type Severity Reaction Status Date / Time amoxicillin Allergy Mild Rash Verified 05/24/25 14:18 Penicillins Allergy Mild Rash Verified 05/24/25 14:18 Exam Data for Last 24 hours Vital signs and Labs for Last 24 Hours: Temp Pulse Resp BP Pulse Ox O2 Del Method 99.0 F 100 H 16 114/60 97 Room Air 05/24/25 16:01 05/24/25 16:04 05/24/25 16:01 05/24/25 16:01 05/24/25 16:01 05/24/25 16:58 Laboratory Results - last 24 hr 05/24/25 09:17: WBC 19.7 H, RBC 4.44, Hgb 12.9, Hct 39.4, MCV 88.7, MCH 29.1, MCHC 32.7, RDW 15.9, Plt Count 211, MPV 9.1, Neut % (Auto) 79.2, Lymph % (Auto) 14.7, [place] % (Auto) 4.1, Eos % (Auto) 1.2, Baso % (Auto) 0.3, Neut # (Auto) 15.6 H, Lymph # (Auto) 2.9, [place] # (Auto) 0.8, Eos # (Auto) 0.2, Baso # (Auto) 0.1, Sodium 142, Potassium 4.2, Chloride 102, Carbon Dioxide 27, Anion Gap 17.2 H, BUN 16, Creatinine 1.00, Estimated Creat Clear 99, Estimated GFR 58 L, Est GFR ( Amer) 70, Glucose 146 H, Calcium 9.7, Total Bilirubin 0.6, AST 34, ALT 54, Alkaline Phosphatase 105, Troponin I < 0.01, NT-Pro-B Natriuret Pep < 20.0, Total Protein 8.6 H, Albumin 5.1 H, Globulin 3.5 H, Albumin/Globulin Ratio 1.5, Lipase 49 05/24/25 09:19: VBG pH 7.38, VBG pCO2 46.7, VBG pO2 40.5 H, VBG HCO3 26.8, VBG Total CO2 28.2 H, VBG O2 Saturation 73.1 H, VBG Base Excess 1.6, VBG Lactic Acid 3.1 H 05/24/25 11:44: Troponin I < 0.01 05/24/25 11:52: Lactate 2.8 H 05/24/25 11:56: Chlamy pneumoniae PCR Not detected, Adenovirus (PCR) Not detected, B. pertussis DNA (PCR) Not detected, Coronavirus OC43 (PCR) Not detected, Coronavirus HKU1 (PCR) Not detected, Coronavirus 229E (PCR) Not detected, SARS-CoV-2 (PCR) Not detected, Coronavirus NL63 (PCR) Not detected, Human Metapneumovir PCR Not detected, Influenza A (H1) PCR Not detected, Influ A (H1N1/09) PCR Not detected, Influenza A (H3) PCR Not detected, Influenza Type A (PCR) Not detected, Influenza Type B (PCR) Not detected, M. pneumoniae (PCR) Not detected, Parainfluenza 1 (PCR) Not detected, Parainfluenza 2 (PCR) Not detected, Parainfluenza 3 (PCR) Not detected, Parainfluenza 4 (PCR) Not detected, RSV (PCR) Not detected, Entero/Rhino (PCR) Detected A 05/24/25 11:59: SARS-CoV-2 (PCR) Not detected, Influenza A Untype (PCR) Not detected, Influenza Type B (PCR) Not detected 05/24/25 12:25: Urine Color Yellow, Urine Appearance Sl cloudy, Urine pH 6.5, Ur Specific [place] 1.010, Urine Protein 1+ A, Urine Glucose (UA) Negative, Urine Ketones Negative, Urine Blood 2+ A, Urine Nitrate Positive, Urine Bilirubin Negative, Urine Urobilinogen 0.2, Ur Leukocyte Esterase 2+ A, Urine RBC 10-20, Urine WBC 50-100, Ur Squamous Epith Cells 10-20, Urine Bacteria 2+ 05/24/25 15:00: Lactate 2.6 H, Troponin I < 0.01 I & O for Last 24 hours: Intake & Output 05/21/25 05/22/25 05/23/25 05/24/25 23:59 23:59 23:59 23:59 Intake Total 1050 / 1050 Balance 1050 / 1050 Weight 95.254 kg Constitutional Constitutional: no acute distress *Routine HEENT Exam Head: Present normocephalic Eye: Present EOMI and PERRL ENT: Present mucous membranes moist *Routine Neck Exam Neck: Present supple; Absent lymphadenopathy *Routine Respiratory Exam Respiratory: Present CTA bilaterally *Routine Cardiovascular Exam Cardiovascular: Present RRR *Routine Abdominal Exam Abdominal: Present soft and normoactive bowel sounds; Absent tenderness *Routine Rectal Exam Rectal:: deferred *Routine Genitalia Exam Genitalia:: deferred *Routine Extremities Exam Extremities: Absent cyanosis, clubbing or edema *Routine Skin Exam Skin: Present warm; Absent rash *Routine Neurological Exam Neurological: Present alert and oriented X3 Assessment and Plan *Assessment and plan (1) Pneumonia: Status: Acute Category: Medical Code(s): J18.9 - Pneumonia, unspecified organism (2) Sepsis: Status: Acute Category: Medical Code(s): A41.9 - Sepsis, unspecified organism (3) Pharyngitis: Status: Acute Category: Medical Code(s): J02.9 - Acute pharyngitis, unspecified (4) UTI (urinary tract infection): Status: Acute Qualifiers: Hematuria presence: with hematuria Urinary tract infection type: site unspecified Qualified Code(s): N39.0 - Urinary tract infection, site not specified; R31.9 - Hematuria, unspecified Category: Medical Code(s): N39.0 - Urinary tract infection, site not specified Plan Patient is a 54-year-old female with past medical history of anxiety depression hypertension morbid obesity who presents to the hospital due to complaints of left-sided chest pain and shortness of breath according to the patient she has chest pain when she takes a deep breath otherwise denied nausea vomiting radiation of pain. Patient mentions she has been feeling sick for past 2 weeks, had runny nose and sore throat, she also had sick kids at home. On further evaluation patient was found to have leukocytosis, lactic acidosis as well as fever, patient complains of urinary frequency. Assessment and plan Sepsis present on admission UTI Chest pain suspect due to community-acquired pneumonia Lactic acidosis Start Rocephin, doxycycline Check calcitonin UA suggestive of UTI, follow-up on urine culture Check blood culture Monitor lactic acid Chronic medical conditions: Anxiety, depression, hypertension - Resume home duloxetine -Holding home diuretics in the setting of sepsis and soft BP DVT prophylaxis-subcutaneous heparin
[2025-05-24] MEDS: ACETAMINOPHEN 325MG TAB 650 MG PO (17:58)
[2025-05-24 18:02] LABS: Lactic Acid Follow up (RFLX 2) 1.8 mmol/L (0.7-2.1)
[2025-05-24] MEDS: 0.9 % SODIUM CHLORIDE 1000ML 1,000 ML 50 ML IV (18:26)
[2025-05-24] MEDS: DOXYCYCLINE HYCLATE 100 MG in 0.9 % SODIUM CHLORIDE 250 ML 166.67 MG IV (18:27)
[2025-05-24] MEDS: MORPHINE 2MG/ML SYRINGE 2 MG IV (20:35)
[2025-05-25] VITALS (10 sets, daily range): BP systolic 113–150; BP diastolic 65–100; PULSE 77–104; RESP 12–18; TEMP 36.9–37.1; O2SAT 90–98; BMI 40.1
[2025-05-25 05:46] LABS: Hematocrit 32.2 % (37.0-47.0); Immature Granulocytes % 0.4 %; Mean Corpuscular HGB Conc 31.7 g/dL (31.8-35.4); Mean Corpuscular Hemoglobin 28.7 pg (27.0-31.2); Mean Corpuscular Volume 90.4 fl (81-99); Nucleated Red Blood Cells % 0 %; Platelet Count 161 K/mm3 (142-424); Red Blood Count 3.56 M/mm3 (4.20-5.40); Red Cell Distribution Width-SD 52.8 fL; White Blood Count 9.3 K/mm3 (4.8-10.8)
[2025-05-25 05:51] LABS: Chloride 105 mmol/L (98-107); Potassium 4.0 mmoL/L (3.5-5.1); Sodium 141 mmol/L (136-145)
[2025-05-25 05:54] LABS: Anion Gap 11.0 mEq/L (5-15); Blood Urea Nitrogen 24 mg/dl (7-17); Calcium 8.5 mg/dl (8.4-10.2); Carbon Dioxide 29 mmol/L (22.0-30.0); Creatinine Clearance Estimated 100 mL/min (50-200); Creatinine,Serum 1.00 mg/dl (0.52-1.04); Estimated Glomerular Filt Rate 58 ml/min (>60); GFR (African American) 70 ML/MIN (>60); Glucose 131 mg/dl (74-100)
[2025-05-25 05:55] LABS: Hemoglobin 10.2 g/dL (12.2-16.2)
[2025-05-25] MEDS: DOXYCYCLINE HYCLATE 100 MG in 0.9 % SODIUM CHLORIDE 250 ML 166.67 MG IV (06:33)
[2025-05-25] MEDS: HEPARIN SODIUM 5,000 UNIT/ML VIAL 5000 UNIT SUBCUT (08:01)
[2025-05-25] MEDS: SPIRONOLACTONE 25MG TABLET 50 MG PO (08:01)
[2025-05-25] MEDS: CEFTRIAXONE 1 GM 1 GM in 0.9 % SODIUM CHLORIDE 50 ML IV (08:13)
[2025-05-25] MEDS: ACETAMINOPHEN 325MG TAB 650 MG PO (08:19)
[2025-05-25] MEDS: SODIUM CHLORIDE 3% 15ML NEB 3 ML IH (10:36)
--- NOTE | 2025-05-25 14:50 | EXP.DC.SUM ---
General Admission date:: 05/24/25 HPI HPI HPI: Patient is a 54-year-old female with past medical history of anxiety depression hypertension morbid obesity who presents to the hospital due to complaints of left-sided chest pain and shortness of breath according to the patient she has chest pain when she takes a deep breath otherwise denied nausea vomiting radiation of pain. Patient mentions she has been feeling sick for past 2 weeks, had runny nose and sore throat, she also had sick kids at home. On further evaluation patient was found to have leukocytosis, lactic acidosis as well as fever, patient complains of urinary frequency. Hospital Course Hospital Course Hospital Course: Sara Marie is a 54-year-old female who presented with shortness of breath, pleuritic chest pain, chills, urinary frequency and was admitted for evaluation of the same and sepsis secondary to UTI. #Sepsis #UTI ? Initial WBC 19, with tachycardia and fevers up to 100.6 Fahrenheit. ? UA grossly abnormal, urine culture pending at this time. ? Clinically improved with IV ceftriaxone, urine culture growing gram-negative rods. ? Discharged with levofloxacin 750 mg for 4 more days. Will follow-up with PCP within 2 weeks. #Acute viral syndrome #Rhinovirus #Pleuritic chest pain ? Respiratory panel positive for rhinovirus. Pleuritic chest pain (worse with inspiration), fatigue, muscle aches, fevers likely also from acute viral syndrome. ? CTA chest, troponins unremarkable. ? Counseled on supportive therapy. #Anxiety, depression ? Continue home duloxetine. #Hypertension ? Continue home spironolactone, torsemide. Has not been formally diagnosed with heart failure. Exam Data for Last 24 hours Vital signs and Labs for Last 24 Hours: Temp Pulse Resp BP Pulse Ox O2 Del Method O2 Flow Rate 98.7 F 100 H 17 150/85 H 96 Room Air 2 05/25/25 12:35 05/25/25 12:35 05/25/25 12:35 05/25/25 12:35 05/25/25 12:35 05/25/25 13:00 05/25/25 08:01 Laboratory Results - last 24 hr 05/24/25 15:00: Lactate 2.6 H, Troponin I < 0.01 05/24/25 17:35: Lactate 1.8 05/25/25 05:12: WBC 9.3 D, RBC 3.56 L, Hgb 10.2 L D, Hct 32.2 L, MCV 90.4, MCH 28.7, MCHC 31.7 L, RDW 16.0, Plt Count 161, MPV 9.4, Neut % (Auto) 71.0, Lymph % (Auto) 21.2, [place] % (Auto) 5.8, Eos % (Auto) 1.3, Baso % (Auto) 0.3, Neut # (Auto) 6.6, Lymph # (Auto) 2.0, [place] # (Auto) 0.5, Eos # (Auto) 0.1, Baso # (Auto) 0.0, Sodium 141, Potassium 4.0, Chloride 105, Carbon Dioxide 29, Anion Gap 11.0, BUN 24 H D, Creatinine 1.00, Estimated Creat Clear 100, Estimated GFR 58 L, Est GFR ( Amer) 70, Glucose 131 H, Calcium 8.5 I & O for Last 24 hours: Intake & Output 05/22/25 05/23/25 05/24/25 05/25/25 23:59 23:59 23:59 23:59 Intake Total 1828.333 / 6972.333 7742 / 2258 Output Total 400 / 400 2300 / 2300 Balance 1428.333 / 1428.333 -42 / -42 Weight 95.254 kg 96.524 kg Microbiology Reports for the Last 24 Hours: Microbiology 05/24/25 11:55 Blood Blood Culture - Preliminary NO GROWTH AFTER 24 HOURS 05/24/25 11:52 Blood Blood Culture - Preliminary NO GROWTH AFTER 24 HOURS 05/24/25 12:25 Urine,Clean Catch Urine Culture - Preliminary Gram Negative Rods Constitutional Constitutional: no acute distress *Routine HEENT Exam Head: Present normocephalic Eye: Present EOMI and PERRL ENT: Present mucous membranes moist *Routine Neck Exam Neck: Present supple; Absent lymphadenopathy *Routine Respiratory Exam Respiratory: Present CTA bilaterally *Routine Cardiovascular Exam Cardiovascular: Present RRR *Routine Abdominal Exam Abdominal: Present soft and normoactive bowel sounds; Absent tenderness *Routine Extremities Exam Extremities: Absent cyanosis, clubbing or edema *Routine Skin Exam Skin: Present warm; Absent rash *Routine Neurological Exam Neurological: Present alert and oriented X3 Results Data Completed and Pending Labs on day of discharge: Labs from last 24 hours 05/25/25 05/24/25 05/24/25 05:12 17:35 15:00 WBC 9.3 D RBC 3.56 L Hgb 10.2 L D Hct 32.2 L MCV 90.4 MCH 28.7 MCHC 31.7 L RDW 16.0 Plt Count 161 MPV 9.4 Neut % (Auto) 71.0 Lymph % (Auto) 21.2 [place] % (Auto) 5.8 Eos % (Auto) 1.3 Baso % (Auto) 0.3 Neut # (Auto) 6.6 Lymph # (Auto) 2.0 [place] # (Auto) 0.5 Eos # (Auto) 0.1 Baso # (Auto) 0.0 Sodium 141 Potassium 4.0 Chloride 105 Carbon Dioxide 29 Anion Gap 11.0 BUN 24 H D Creatinine 1.00 Estimated Creat Clear 100 Estimated GFR 58 L Est GFR ( Amer) 70 Glucose 131 H Lactate 1.8 2.6 H Calcium 8.5 Troponin I < 0.01 Preliminary micro results at discharge 05/24/25 11:55 Blood Culture - Preliminary Blood NO GROWTH AFTER 24 HOURS 05/24/25 11:52 Blood Culture - Preliminary Blood NO GROWTH AFTER 24 HOURS 05/24/25 12:25 Urine Culture - Preliminary Urine,Clean Catch Gram Negative Rods DS: Diagnosis Discharge Diagnosis (1) Pneumonia: Status: Acute Code(s): J18.9 - Pneumonia, unspecified organism (2) Sepsis: Status: Acute Code(s): A41.9 - Sepsis, unspecified organism (3) Pharyngitis: Status: Acute Code(s): J02.9 - Acute pharyngitis, unspecified (4) UTI (urinary tract infection): Status: Acute Code(s): N39.0 - Urinary tract infection, site not specified Qualifiers: Hematuria presence: with hematuria Urinary tract infection type: site unspecified Qualified Code(s): N39.0 - Urinary tract infection, site not specified; R31.9 - Hematuria, unspecified Meds Home Medications and Allergies Home Medications ?Medication ?Instructions ?Recorded ?Confirmed ?Type spironolactone 50 mg tablet 50 mg PO DAILY Fluid 11/15/19 05/24/25 History torsemide 20 mg tablet 20 mg PO DAILY Fluid 11/15/19 05/24/25 History duloxetine 20 mg capsule,delayed 20 mg PO BID 10/29/24 08/24/25 History release methylphenidate HCl 36 mg 36 mg PO DAILY 05/24/25 05/24/25 History tablet,extended release 24 hr levofloxacin 750 mg tablet 750 mg PO DAILY 4 days #4 tabs 05/25/25 Rx New Prescriptions to Start Prescriptions: levofloxacin Anders Patel Allergies Allergy/AdvReac Type Severity Reaction Status Date / Time amoxicillin Allergy Mild Rash Verified 05/24/25 14:18 Penicillins Allergy Mild Rash Verified 05/24/25 14:18 Discharge Plan Disposition Patient Disposition: Home, Self-Care Condition: Fair Follow up Plan Follow up with: Adelaide Bhatti [Primary Care Provider, Medical] - 05/29/25 1:00 pm Prescriptions/Medication Reconciliation: New levofloxacin 750 mg tablet 750 mg PO DAILY 4 Days Qty: 4 0RF Continued spironolactone 50 mg tablet 50 mg PO DAILY Patient Comments: TAKE 1 TABLET BY MOUTH ONCE DAILY torsemide 20 mg tablet 20 mg PO DAILY Patient Comments: TAKE 1 TABLET BY MOUTH ONCE DAILY duloxetine 20 mg capsule,delayed release(DR/EC) 20 mg PO BID methylphenidate HCl 36 mg tablet extended release 24hr 36 mg PO DAILY Problem Reconciliation Problems Reviewed?: Yes Patient Discharge Instructions Patient Instructions: DI for Pneumonia -- Adult, DI for Sepsis -- Adult, Stop Light Pneumonia Print Language: Ecuad[place] Providers Primary Care Provider: Adelaide Bhatti Admit Provider: Kayla Rhodes Attending Provider: Kayla Rhodes
--- NOTE | 2025-05-25 15:37 | PC.NURSE ---
PT left unit by wheelchair with ICU staff
--- NOTE | 2025-05-26 08:08 | PC.NURSE ---
Urine culture results forwarded to hospitalist.
--- NOTE | 2025-05-26 10:57 | SW/DCPLANNER ---
Spoke with patient on the phone. Patient stated that she is doing well. Patient stated that she is aware of her upcoming appointment. Patient stated that she was able to flower buncher or picker her medicine. Patient stated that she has no concerns or questions at this time. Marii Weldon
== END 2025-05-25 15:37 | disposition home or self-care (01) ==
LOC: ER 09:42 → 2ND 13:19 → ICU 13:40
PROVIDERS: Admitting Provider Internal Medicine; Emergency Provider Student in an Organized Health Care Education/Training Program; PCP Family Medicine; Visit Provider Internal Medicine
DX: N39.0 Urinary tract infection, site not specified (principal); A41.9 Sepsis, unspecified organism; R07.89 Other chest pain; J18.9 Pneumonia, unspecified organism; J02.9 Acute pharyngitis, unspecified; E87.20 Acidosis, unspecified; F41.9 Anxiety disorder, unspecified; F32.A Depression, unspecified; E78.5 Hyperlipidemia, unspecified; I11.0 Hypertensive heart disease with heart failure; I50.9 Heart failure, unspecified; B34.8 Other viral infections of unspecified site; K76.0 Fatty (change of) liver, not elsewhere classified; E66.01 Morbid (severe) obesity due to excess calories; Z68.41 Body mass index [BMI] 40.0-44.9, adult; Z88.0 Allergy status to penicillin; Z79.899 Other long term (current) drug therapy
CPT/HCPCS: 0223U; 36415; 71045; 71275; 80048; 80053; 81001; 81003; 81015; 82803; 83605; 83690; 83880; 84484; 85025; 87040; 87086; 87088; 87186; 87636; 89220; 93005; 96361; 96365; 96366; 96367; 96375; 96376; 99285; G0378; J0696; J1644; J1885; J2270; J2405; J7030; J7050; J7120; Q9967

== ENCOUNTER 2025-08-07 10:20 | Outpatient (CLI) | payer BC, SELFPAY ==
[2025-08-11 10:13] LABS: Microscopic, Urine URINE MICROSCOPIC (MICROSCOPIC)
--- OUTSIDE RECORDS SUMMARY | 2025-08-11 10:23 | XMS_ITS | Data Portability ---
Author Organization [place] [facility] [place] [facility] [place] [facility] Address [address] [facility] [facility] [place] [address] Care Team Providers Care Heliarc Welder Name Role Phone ARELY RODRIGUEZ Primary Care Provider [phone] Assessment Encounter Date Assessment Date Assessment LastModified [...] Lab urinalysi s panel, auto 2024 025 [email or web address] 4 [facility] [place] With [facility], [address] , [address], [place], [address], 06/11/2025 13:58:03 aldostero ne, serum 2024 025 [email or web address] [facility], [address] [place] [address], [address], 01/20/2025 14:32:33 aldostero ne/renin activity, ratio, plasma 2024 025 [facility], [address] [place] [address], [address], 12/23/2024 15:48:57 renin activity, plasma (pra) 2024 025 [email or web address] [facility], [address] [place] [address], [address], 01/20/2025 14:32:33 BMP, serum or plasma 2024 025 [facility], [address] [place] [address], [address], 12/18/2024 10:39:44 cortisol, saliva - Late-nigh t salivary cortisol 2 specimens on 2 successiv e nights 2024 025 [email or web address] [facility], [address] [place] [address], [address], 01/20/2025 14:32:34 cortisol, saliva - Late-nigh t salivary cortisol 2 specimens on 2 successiv e nights 2024 025 [email or web address] [facility], [address] [place] [address], [address], 01/20/2025 14:32:34 igf-1 (insulin- like growth factor), serum 2024 025 [facility], [address] [place] [address], [address], 12/24/2024 16:36:02 T4, free, serum 2024 025 [facility], [address] [place] [address], [address], 12/18/2024 11:57:16 TSH, serum or plasma 2024 025 [facility], [address] [place] [address], [address], 12/18/2024 11:57:15 T3, free, serum or plasma 2024 025 [facility], [address] [place] [address], [address], 12/18/2024 11:57:13 prolactin , serum 2024 025 [facility], [address] [place] [address], [address], 12/18/2024 11:57:17 Referral None recorded. Procedures None recorded. Surgeries None recorded. Imaging None recorded. Medication Orders methenami ne hippurate 1 gram tablet 2024 025 [facility], [address] [place] [address], [address], 06/11/2025 14:01:23 Zepbound 2.5 mg/0.5 mL subcutane ous solution [address] [facility], [address], [address], 05/11/2025 12:27:01 Patient TargetsNo targets recorded. Patient Instructions Encounter Date Encounter Id Patient Instructions Last Modified By Organization Details Last Modified Time 04/13/2022 [id number] _30__ minutes wa s spent on this encounter; including preparing to see the patient, which involved review/interpretat ion of diagnostics and reports; obtaining and/or reviewing separately obtained history; performing appropriate physical exam; ordering/schedulin g medications, tests or procedures; communicating findings and counseling/educati ng the patient, family and/or caregiver; documentation in EMR; and care coordination. Not available 04/13/2022 19:31:15 06/11/2025 [id number] learning about healthy weight [email or web address] Not available 06/11/2025 13:58:03 - Take methenami [...] glucose 120 mg/dL 74-100 high Not Available [facility] [address] [place] [address], [address], 12/18/2024 10:39:44 12/19/19 25 12/18/2024 BASIC METAB OLIC PANEL blood urea nitrogen 21 mg/dL 6-20 high Not Available [facility] [address] [place] [address], [address], 12/18/2024 10:39:44 12/19/19 25 12/18/2024 BASIC METAB OLIC PANEL creatinine 0.93 mg/dL 0.50-0 .95 normal Not Available [facility] [address] [place] [address], [address], 12/18/2024 10:39:44 12/19/19 25 12/18/2024 BASIC METAB OLIC PANEL BUN/creatini ne ratio 23 (calc ) 10-20 high Not Available [facility] [address] [place] [address], [address], 12/18/2024 10:39:44 12/19/19 25 12/18/2024 BASIC METAB OLIC PANEL sodium 141 mmol/ L 136-14 5 normal Not Available [facility] [address] [place] [address], [address], 12/18/2024 10:39:44 12/19/19 25 12/18/2024 BASIC METAB OLIC PANEL potassium 4.1 mmol/ L 3.4-5. 0 normal Not Available [facility] [address] [place] [address], [address], 12/18/2024 10:39:44 12/19/19 25 12/18/2024 BASIC METAB OLIC PANEL chloride 103 mmol/ L 98-107 normal Not Available [facility] [address] [place] [address], [address], 12/18/2024 10:39:44 12/19/19 25 12/18/2024 BASIC METAB OLIC PANEL carbon dioxide 23 mmol/ L 22-31 normal Not Available [facility] [address] [place] [address], [address], 12/18/2024 10:39:44 12/19/19 25 12/18/2024 BASIC METAB OLIC PANEL anion gap 15 (calc ) 7-25 normal Not Available [facility] [address] [place] [address], [address], 12/18/2024 10:39:44 12/19/19 25 12/18/2024 BASIC METAB OLIC PANEL calcium 9.7 mg/dL 8.6-10 .2 normal Not Available [facility] [address] [place] [address], [address], 12/18/2024 10:39:44 12/19/19 25 12/18/2024 BASIC METAB [...] s/KDO QI/gf r_cal culat orPed Not Available [facility] [address] [place] [address], [address], 12/18/2024 10:39:44 12/19/19 25 12/18/2024 T3 FREE T3 free 3.32 pg/mL 2.00-4 .40 normal Not Available [facility] [address] [place] [address], [address], 12/18/2024 11:57:13 12/19/19 25 12/18/2024 TSH TSH 1.780 u[IU] /mL 0.270- 4.200 normal Not Available [facility] [address] [place] [address], [address], 12/18/2024 11:57:14 12/19/19 25 12/18/2024 T4,FR EE T4,free 1.01 NG/dL 0.93-1 .70 normal Not Available [facility] [address] [place] [address], [address], 12/18/2024 11:57:16 12/19/19 25 12/18/2024 PROLA CTIN prolactin 8.40 NG/mL 4.79-2 3.30 normal Refer ence range is based on non-p regna nt women . Not Available [facility] [place], [address], 12/18/2024 11:57:17 12/19/19 25 12/23/2024 ALDOS KAITLYN [...] cteri stics have been deter mined by [employer]. It has not been clear ed or appro jocelyn by the FDA. This assay has been valid ated pursu ant to the CLIA regul ation s and is used for clini elenita purpo ses. Not Available [facility] [address] [place] [address], [address], 12/26/2024 14:57:14 12/19/19 25 12/25/2024 ALDOS KAITLYN E-ESTRELLITA IN ACTIV ITY RATIO plasma renin activity 7.23 NG/mL /h 0.25-5 .82 high Not Available [facility] [address] [place] [address], [address], 12/26/2024 14:57:14 12/19/19 25 12/25/2024 ALDOS KAITLYN E-ESTRELLITA IN ACTIV ITY RATIO aldosterone- renin ratio 6.9 ratio 0.9-28 .9 normal Not Available [facility] [address] [place] [address], [address], 12/26/2024 14:57:14 12/19/19 25 12/24/2024 IGF-I igf-1 111 NG/mL 50-317 normal Not Available [facility] [address] [place] [address], [address], 12/24/2024 16:36:02 12/19/19 25 12/24/2024 IGF-I Z score (female) -0.5 SD -2.0 - +2.0 normal This test was devel oped and its ye tical perfo rmanc e ursula cteri stics have been deter mined by [employer]. It has not been clear ed or appro jocelyn by the FDA. This assay has been valid ated pursu ant to the CLIA regul ation s and is used for clini elenita purpo ses. Not Available [facility] [address] [place] [address], [address], 12/24/2024 16:36:02 01/19/2001/27/2025 CORTI LAM,S ALIVA cortisol,viridiana [...] stics have been deter mined by [employer]. It has not been clear ed or appro jocelyn by the FDA. This assay has been valid ated pursu ant to the CLIA regul ation s and is used for clini elenita purpo ses. Not Available [facility] [address] [place], [address], 01/27/2025 23:57:39 01/20/20 25 01/27/2025 CORTI LAM,S [...] stics have been deter mined by [employer]. It has not been clear ed or appro jocelyn by the FDA. This assay has been valid ated pursu ant to the CLIA regul ation s and is used for clini elenita purpo ses. Not Available [facility] [address] [place], [address], 01/27/2025 23:57:33 06/11/2006/11/2025 urina lysis panel , auto Unknown Analyte Clean Catch Not Available [facility] With [address], [place], [address], 06/11/2025 13:38:31 06/11/2006/11/2025 urina lysis panel , auto Unknown Analyte Yellow Not Available [facility] With [address], [place], [address], 06/11/2025 13:38:31 06/11/20 25 06/11/2025 urina lysis panel , auto Unknown Analyte Clear Not Available [facility] With [place] [address], [place], [address], 06/11/2025 13:38:31 06/11/20 25 06/11/2025 urina lysis panel , auto Unknown Analyte 1.015 Not Available [facility] With [address], [place], [address], 06/11/2025 13:38:31 06/11/2006/11/2025 urina lysis panel , auto Unknown Analyte 1.003 - 1.030 Not Available [facility] With [address], [place], [address], 06/11/2025 13:38:31 06/11/2006/11/2025 urina lysis panel , auto Unknown Analyte 5.0 Not Available [facility] With [address], [place], [address], 06/11/2025 13:38:31 06/11/2006/11/2025 urina lysis panel , auto Unknown Analyte 5.0 - 8.0 Not Available [facility] With [place] [address], [place], [address], 06/11/2025 13:38:31 06/11/20 25 06/11/2025 urina lysis panel , auto Unknown Analyte 25 Shailesh/uL Not Available [facility] With [address], [place], [address], 06/11/2025 13:38:31 06/11/20 25 06/11/2025 urina lysis panel , auto Unknown Analyte Negati ve Not Available [facility] With [address], [place], [address], 06/11/2025 13:38:31 06/11/20 25 06/11/2025 urina lysis panel , auto Unknown Analyte Negati ve Not Available [facility] With [address], [place], [address], 06/11/2025 13:38:31 06/11/20 25 06/11/2025 urina lysis panel , auto Unknown Analyte Negati ve Not Available [facility] With [address], [place], [address], 06/11/2025 13:38:31 06/11/20 25 06/11/2025 urina lysis panel , auto Unknown Analyte Negati ve Not Available [facility] With [address], [place], [address], 06/11/2025 13:38:31 06/11/20 25 06/11/2025 urina lysis panel , auto Unknown Analyte Negati ve Not Available [facility] With [address], [place], [address], 06/11/2025 13:38:31 06/11/20 25 06/11/2025 urina lysis panel , auto Unknown Analyte Normal Not Available [facility] With [address], [place], [address], 06/11/2025 13:38:31 06/11/20 25 06/11/2025 urina lysis panel , auto Unknown Analyte Normal Not Available [facility] With [address], [place], [address], 06/11/2025 13:38:31 06/11/20 25 06/11/2025 urina lysis panel , auto Unknown Analyte Negati ve Not Available [facility] With [address], [place], [address], 06/11/2025 13:38:31 06/11/20 25 06/11/2025 urina lysis panel , auto Unknown Analyte Negati ve Not Available [facility] With [address], [place], [address], 06/11/2025 13:38:31 06/11/20 25 06/11/2025 urina lysis panel , auto Unknown Analyte Normal Not Available [facility] With [address], [place], [address], 06/11/2025 13:38:31 06/11/20 25 06/11/2025 urina lysis panel , auto Unknown Analyte Normal Not Available [facility] With [address], [place], [address], 06/11/2025 13:38:31 06/11/20 25 06/11/2025 urina lysis panel , auto Unknown Analyte Negati ve Not Available [facility] With [address], [place], [address], 06/11/2025 13:38:31 06/11/20 25 06/11/2025 urina lysis panel , auto Unknown Analyte Negati ve Not Available [facility] With [address], [place], [address], 06/11/2025 13:38:31 06/11/20 25 06/11/2025 urina lysis panel , auto Unknown Analyte Negati ve Not Available [facility] [address], [place], [address], 06/11/2025 13:38:31 06/11/20 25 06/11/2025 urina lysis panel , auto Unknown Analyte Negati ve Not Available [facility] [address], [place], [address], 06/11/2025 13:38:31 04/11/20 22 03/14/2022 MAMMO , scree corry, bilat eral No observ ation record ed. BARCODE Not Available 2021 11:39:47 04/19/20 22 04/13/2022 mg mammo graph y outsi de consu [facility] [address] [place] [address] Patien t Name: SARA Martinez Patinita t [...] Carlos Magana MD on 11:50 AM [email or web address] [facility] [address] [place] [address], [address], 04/19/2022 14:56:26 05/02/2005/02/2022 MAMMO , diagn ostic , tomos ynthe sis, unila teral , w/ CAD [address] [address] Pat[place]a t Name: SARA martinez : 1969 [...] Magana MD on 05/02/20 10:41 AM [email or web address] [facility] [address] [facility], [place], [address], 05/02/2022 10:46:51 05/02/2005/02/2022 US, beverley t, unila teral [place] [address] [facility] [place] [address] Gurmeet martinez Name: SARA martinez : 1969 [...] Magana MD on 05/02/20 10:41 AM [email or web address] [facility] [address], [address], 05/02/2022 10:46:51 Result Notes Documentation Provider Name and Address Organization Details Recorded Time Mammo, Diagnostic, Tomosynthesis, Unilateral, W/ Cad : [address] [address] Patient Name: SARA RICH Patient : 1970 Age: 51 years Patient Ordering Provider: ARELY RODRIGUEZ EXAM DATE: 05/02/2022 EXAM: MG LT DIAG JOCELIN MAMMOGRAM, left breast ultrasound INDICATION: Breast nodule PROCEDURE: Multislice imaging of the left breast was performed including spot compression and mediolateral views using [employer] tomosynthesis equipment (3D mammography). 2D images [...] Juan Carlos Magana MD [place] [facility] 05/02/2022 10:46:51 Procedures Surgical History Date Name Laterality Status Provider Name and Address Organization Details Recorded Time 03/14/20 Date of Last Mammogram completed Majo Aguillon [facility] 04/13/2022 14:13:06 10/01/19 15 cholecystectomy completed Majo Aguillon [facility] 04/13/2022 15:46:36 10/01/19 08 delivery completed Majo Aguillon [facility] 04/13/2022 15:46:24 10/01/18 83 tubal occlusion completed Majo Arroyoby [facility] 04/13/2022 15:46:06 Imaging Results None recorded. Procedure [...] Updated DateTime 12/18/2024 154.94 cm 38.7 kg/m2 11658.44 g 124/77 mm[Hg] [facility] 12/18/2024 09:07:25 Date Recorded Body height Body mass index (BMI) Body weight Systolic And Diastolic Provider Name and Address Organization Details Last Updated DateTime 02/05/2025 154.94 cm 39.9 kg/m2 95569.99 g 124/76 mm[Hg] [facility] 02/05/2025 11:28:42 Date Recorded Body height Body mass index (BMI) Body weight Body temperature Heart rate Respiratory rate Systolic And Diastolic Provider Name and Address Organization Details Last Updated DateTime 2 154.94 cm 34.6 kg/m2 13016.4 g 97.8 [degF] 88 /min 18 /min 126/80 mm[Hg] Majo Aguillon [facility] 2 16:21:09 Date Recorded Body height Body mass index (BMI) Body weight Systolic And Diastolic Provider Name and Address Organization Details Last Updated DateTime 05/11/2025 154.94 cm 38.9 kg/m2 80328.03 g 128/78 mm[Hg] [facility] 05/11/2025 11:48:30 Date Recorded Body height Body mass index (BMI) Body weight Provider Name and Address Organization Details Last Updated DateTime 06/11/2025 154.94 cm 39.7 kg/m2 44025.4 g Esther Pritchard [facility] 06/11/2025 13:28:53 Social History Question Answer Notes LastModified by [employer] Details LastModified Time Tobacco Smoking Status Never Smoker Majo Aguillon nitin, [facility] 04/13/2022 15:45:12 What Was The Date Of Your Most Recent Tobacco Screening? 06/11/2025 [email or web address] Information not available 06/11/2025 Has Tobacco Cessation Counseling Been Provided? No Information not available 04/13/2022 Have You Recently Traveled Abroad? No Information not available 04/13/2022 Sex: Unknown Functional Status Question Answer Note LastModified by [employer] Details LastModified Time Do you use any [...] available 2024 13:30:45 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 Condition Response Diabetes N Anxiety Disorder Y Ovarian Cancer N Coronary Artery Disease N Thyroid Disease N Blood Transfusion N Breast Cancer N Congestive Heart Failure (CHF) N Eczema N Diverticulitis N Stroke N Asthma Y COPD N Depression Y Crohn's Disease N Breast Problem Y Sleep Apnea Y Liver Disease N Heart Attack ([place]) N Heart Disease N Hypertension N Kidney [...] 50 mcg/0.25mL dose 10/06/2020 completed Not Available [facility] 5 11:39:07 COVID-19, mRNA, LNP-S, PF, 100 mcg/0.5mL dose or 50 mcg/0.25mL dose 11/03/2020 completed Not Available [facility] 5 11:39:07 COVID-19, mRNA, LNP-S, PF, 100 mcg/0.5mL dose or 50 mcg/0.25mL dose 11/25/2021 completed Not Available [facility] 5 11:39:07 Past Encounters Encounter ID Performer Location Encounter Start Date Encounter Closed Date Diagnosis/Indication Diagnosis SNOMED-CT Code Diagnosis ICD10 Code Diagnosis IMO Codes Diagnosis Note [id number] HUBER DENNEY MD BREAST SURGERY [address] [address] 04/13/2022 15:39:44 04/14/2022 09:02:50 Fibrocystic disease of breast 61726490 N60.19 [id number] YOCASTA GREWAL MD ENDOCRINO LOGY [address] [address] 12/18/2024 08:49:09 12/18/2024 11:39:53 Hyperaldosteronism 40696985 E26.9 New consultati on elevated aldosteron e [...] from her PCP standpoint . 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 low-calori e diet and activity Slime negro pharmacolo gic therapy in the form of GLP-1 therapy but she reported modest weight loss previously on GLP-1 therapy. Abnormal weight gain 161 295743 R63.5 Evaluate for endocrine causes of weight gain such as hypothyroi dism, Junior syndrome and growth hormone deficiency as stated above. Further management to be determined based on test results Patient verbalized understand ing and agreed with the above mentioned plan of care. [id number] YOCASTA GREWAL MD [facility] [place] [address] [place] [address] 02/05/2025 11:12:30 02/05/2025 13:26:27 Morbid obesity 794961412 E66.01 21761 BMI of 39.9 and a weight of 200Recouns eled about the importance of lifestyle interventi on i.e. low-calori e diet and activity which she is currently optimizing per patient Previously on semaglutid e without weight loss We suggested alternativ rhys Zepbound therapy Benefits and side effects we discussed She is agreeable to start therapy if approved by her insurance Central hypothyroidism 21005913 E03.8 35398 TSH of 1.78 and free T4 of 1.01 on 12/18/2024 Hyperaldosteronism 97005 004 E26.9 04548 Repeated aldosteron e renin activity showed elevated [...] with the above mentioned plan of care. [id number] YOCASTA GREWAL MD [facility]CR[facility] [address] [place] [address] 05/11/2025 11:38:00 05/11/2025 12:24:44 Morbid obesity 174645409 E66.01 R73.03 G47.33 BMI of 38.9 down [...] with the above mentioned plan of care. [id number] DI SUN MD [facility] [address] [place] [address],[place] [address] 06/11/2025 13:07:18 06/11/2025 15:38:42 Recurrent urinary tract infection 890362748 N39.0 842418 - Consider anatomic evaluation with cystoscopy to rule out structural abnormalit ies. - Initiate methenamin e to alter urinary environmen t and reduce bacterial growth. - Encourage increased fluid intake to 75-100 ounces daily to promote urinary flushing. Increased frequency of urination 151632807 R35.0 46205 - Monitor diuretic use and adjust as necessary to manage urinary frequency. Urge incon tinence of urine 69586835 N39.41 606499 - Discussed potential use of medication s to manage urgency and provide time to reach the bathroom. Health Concerns Section Related Observation LastModified by Organization Detai ls LastModified Time None Recorded Concern Status LastModified by Organization Details LastModified Time None Recorded Advance Directives Directive None Recorded Payers Insurance Date Sequence Insurance Name Policy Number Policy Jya Covered Member ID Jay Member ID Guarantor Name 06/12/2025 1 [place] [id number] 1 Sara L Anna [id number] Sara L Anna 05/11/2025 1 [place] [id number] Sara L Anna [id number] Sara L Anna 05/12/2025 1 *SELF PAY* Pe nny L Anna 05/11/2025 1 [place] [id number] Sara L Anna [id number] Sara L Anna 05/11/2025 1 [place] [id number] Sara L Anna [id number] Sara L Anna Notes Date Note [...] family history of malignancy. HUBER DENNEY MD [address] [place] [address], [phone], [facility] 04/13/2022 19:34:06 12/18/2024 text/html 54-year-old female patient [...] any current high-dose biotin YOCASTA GREWAL MD [address] [place] [address], [address], [facility] 12/18/2024 11:32:44 02/05/2025 text/html 54-year-old female patient [...] and watching her diet YOCASTA GREWAL MD [address] [place] [address], [address], [facility] 02/05/2025 12:35:30 05/11/2025 text/html 54-year-old female patient [...] retention and ankle swelling YOCASTA GREWAL MD [address] [place] [address], [address], [facility] 05/11/2025 12:18:37 06/11/2025 text/html The patient is [...] (04/02/2025): E. coli, alcantara-susceptible DI SUN MD [address] [place] [address], [address], [facility] 06/12/2025 15:06:55 OBGyn Episode Ob Episode Information Episode Created Date Number of Fetuses Patient Bloodtype Patient rh Status Prepregnancy Weight lbs Domestic Partner Domestic Partner Phone Father Name Pantograph Ii Engraver Status 04/13/20 22 1 CLOSED Fetus Data [...] Domestic Partner Domestic Partner Phone Father Name Pantograph Ii Engraver Status 04/13/20 22 1 CLOSED Fetus Data [...] Domestic Partner Domestic Partner Phone Father Name Pantograph Ii Engraver Status 04/13/20 22 1 CLOSED Fetus Data [...]
--- OUTSIDE RECORDS SUMMARY | 2025-08-11 10:23 | XMS_ITS | Clinical Summary ---
Author Organization [facility] Address [address] [place] [address] Care Team Providers Care Shipping & Receiving Lead Name Role Phone Unavailable Primary Care Provider [...] 11/03/2020, 10/06/2020 Influenza Vaccination (#1) 2025 Insurance [facility] Address: [facility] [id number] [place] [address]
--- OUTSIDE RECORDS SUMMARY | 2025-08-11 10:23 | XMS_ITS | Clinical Summary ---
[facility] Organization [facility] Address [address] [place] [address] Care Team Providers Care Mushroom Growing Supervisor Name Role Phone Adelaide Bhatti Primary Care Provider [phone] Social History Tobacco Use Types Packs/Day Years [...] C SCREENING 06/19/2025 Insurance PPO Care Teams Mushroom Growing Supervisor Relationship Specialty Start Date End Date Adelaide Bhatti DO [facility] [place] [address] PCP - General Family Medicine 11/08/23
--- OUTSIDE RECORDS SUMMARY | 2025-08-11 10:23 | XMS_ITS | Patient Health Record ---
Author Organization [facility] Address [address] [facility] [address] [place] [address] Care Team Providers Care Food Consultant Name Role Phone Lovely Gallegos Unavailable [phone] Allergies No Known Allergies Reason For Referral [...] Coverage End Date Keith BALLESTEROS [address] [place] [address] [id number] Sara Castillo Self - patient is the insured Medical (General) History 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 History ICD Code anxiety depression
[2025-08-11 11:16] LABS: Bilirubin,Urine Negative (Negative); Color,Urine YELLOW (Yellow); Glucose,Urine (UA) Negative (Negative); Ketones,Urine Negative (Negative); Leukocyte Esterase,Urine 2+ (Negative); PH,Urine 6.0 (5.0-8.5); Protein,Urine Negative (Negative); Specific Gravity, Urine 1.010 (1.005-1.030); Urobilinogen,Urine 0.2 EU/dl (0.2)
[2025-08-11 11:39] LABS: Bacteria,Urine 3+ /lpf
== END 2025-08-07 23:59 | disposition home or self-care (01) ==
LOC: LAB.DROPOF 08-11 10:20
PROVIDERS: PCP Family Medicine; Visit Provider Nurse Practitioner
DX: N39.0 Urinary tract infection, site not specified (principal)
CPT/HCPCS: 81001; 87086; 87088

== ENCOUNTER 2025-08-07 23:34 | Outpatient (CLI) | payer BC, SELFPAY ==
--- OUTSIDE RECORDS SUMMARY | 2025-08-07 23:36 | XMS_ITS | Clinical Summary ---
Author Organization [facility] Address [address] [place] [id number] Care Team Providers Care Die Cast Supervisor Name Role Phone Unavailable Primary Care Provider [...] PCV) 2022 Zoster-RZV(Shingrix) (1 of 2) 2022 BMI Counseling 10/01/2024 Depression Screening 10/01/2024 COVID-19 Vaccine ( season) 2025 11/25/2021, 11/03/2020, 10/06/2020 Influenza Vaccination (#1) 2025 Insurance
--- OUTSIDE RECORDS SUMMARY | 2025-08-07 23:37 | XMS_ITS | Continuity of Care Document ---
Author Organization [facility] Address [address] [place] [address] Care Team Providers Care Wardrobe Technician Name Role Phone ARELY RODRIGUEZ Primary Care Provider [phone] Assessment Encounter Date Assessment Date Assessment LastModified by Organization Details LastModified Time 06/11/2025 06/11/2025 - 54-year-old female with a history of morbid obesity presenting with recurrent urinary tract infections. - Recurrent urinary tract infections: The patient experiences frequent recurrences despite antibiotic treatment, with a recent hospitalization for sepsis related to a UTI. - Increased frequency of urination: Likely exacerbated by diuretic use, causing significant nocturia and frequent urination post-diuretic administration. - Urge incontinence: The patient reports urgency and inability to hold urine, impacting daily activities. [email or web address] Not available 06/11/2025 14:00:45 Plan of Treatment Reminders Order Date Submit Date Provider Last Modified By Organization Details Last Modified Time Details Appointments RECHECK 2024 03:15P Neetu SUN MD Not available Not available Not available RECHECK 2025 11:15A Neetu GREWAL MD Not available Not available Not available Lab urinalysi s panel, auto 2024 025 4 [facility] [place] [facility], [address] , [address], [place], [address], 06/11/2025 13:58:03 Referral None recorded. Procedures None recorded. Surgeries None recorded. Imaging None recorded. Medication Orders methenami ne hippurate 1 gram tablet 2024 025 [facility], [address], [place], [address], 06/11/2025 14:01:23 Patient TargetsNo targets recorded. Patient Instructions Encounter Date Encounter Id Patient Instructions Last Modified By Organization Details Last Modified Time 06/11/2025 [id number] learning about healthy weight [email or web address] Not available 06/11/2025 13:58:03 - Take methenamine as prescribed to help reduce urinary tract infections. - Drink 75-100 ounces of water daily to help flush the urinary system. - Monitor the effects of diuretics and report any concerns about urinary frequency. - Consider scheduling a cystoscopy if recurrent infections persist. [email or web address] Not available 06/11/2025 14:00:47 Reason for Referral None Reported. Results Created Date Observation Date Name Description Value Unit Range Abnormal Flag Note LastModifiedBy Organization Detail LastModifiedTime 06/11/2006/11/2025 urina lysis panel , auto Unknown Analyte Clean Catch Not Available [facility] With [address], [place], [address], 06/11/2025 13:38:31 06/11/2006/11/2025 urina lysis panel , auto Unknown Analyte Yellow Not Available [facility] With [address], [place], [address], 06/11/2025 13:38:31 06/11/20 25 06/11/2025 urina lysis panel , auto Unknown Analyte Clear Not Available [facility] With [address], [place], [address], 06/11/2025 13:38:31 06/11/2006/11/2025 urina lysis panel , auto Unknown Analyte 1.015 Not Available [facility] With [address], [place], [address], 06/11/2025 13:38:31 06/11/20 25 06/11/2025 urina lysis panel , auto Unknown Analyte 1.003 - 1.030 Not Available [facility] With [address], [place], [address], 06/11/2025 13:38:31 06/11/20 25 06/11/2025 urina lysis panel , auto Unknown Analyte 5.0 Not Available [facility] With [address], [place], [address], 06/11/2025 13:38:31 06/11/20 25 06/11/2025 urina lysis panel , auto Unknown Analyte 5.0 - 8.0 Not Available [facility] With [address], [place], [address], 06/11/2025 13:38:31 06/11/20 25 06/11/2025 urina lysis panel , auto Unknown Analyte 25 Shailesh/uL Not Available [facility] With [address], [place], [address], 06/11/2025 13:38:31 06/11/2006/11/2025 urina lysis panel , auto Unknown Analyte Negati ve Not Available [facility] With [address], [place], [address], 06/11/2025 13:38:31 06/11/2006/11/2025 urina lysis panel , auto Unknown Analyte Negati ve Not Available [facility] With [address], [place], [address], 06/11/2025 13:38:31 06/11/20 25 06/11/2025 urina lysis panel , auto Unknown Analyte Negati ve Not Available [facility] With [address], [place], [address], 06/11/2025 13:38:31 06/11/20 25 06/11/2025 urina lysis panel , auto Unknown Analyte Negati ve Not Available [facility] With [address], [place], [address], 06/11/2025 13:38:31 06/11/20 25 06/11/2025 urina lysis panel , auto Unknown Analyte Negati ve Not Available [facility] With [address], [place], [address], 06/11/2025 13:38:31 06/11/20 25 06/11/2025 urina lysis panel , auto Unknown Analyte Normal Not Available [facility] With [address], [place], [address], 06/11/2025 13:38:31 06/11/20 25 06/11/2025 urina lysis panel , auto Unknown Analyte Normal Not Available [facility] With [address], [place], [address], 06/11/2025 13:38:31 06/11/20 25 06/11/2025 urina lysis panel , auto Unknown Analyte Negati ve Not Available [facility] With [address], [place], [address], 06/11/2025 13:38:31 06/11/20 25 06/11/2025 urina lysis panel , auto Unknown Analyte Negati ve Not Available [facility] With [address], [place], [address], 06/11/2025 13:38:31 06/11/20 25 06/11/2025 urina lysis panel , auto Unknown Analyte Normal Not Available [facility] With [address], [place], [address], 06/11/2025 13:38:31 06/11/20 25 06/11/2025 urina lysis panel , auto Unknown Analyte Normal Not Available [facility] With [address], [place], [address], 06/11/2025 13:38:31 06/11/20 25 06/11/2025 urina lysis panel , auto Unknown Analyte Negati ve Not Available [facility] With [address], [place], [address], 06/11/2025 13:38:31 06/11/20 25 06/11/2025 urina lysis panel , auto Unknown Analyte Negati ve Not Available [facility] With [address], [place], [address], 06/11/2025 13:38:31 06/11/20 25 06/11/2025 urina lysis panel , auto Unknown Analyte Negati ve Not Available [facility] With [address], [place], [address], 06/11/2025 13:38:31 06/11/20 25 06/11/2025 urina lysis panel , auto Unknown Analyte Negati ve Not Available [facility] With [address], [place], [address], 06/11/2025 13:38:31 Result Notes None recorded. Procedures Surgical History Date Name Laterality Status Provider Name and Address Organization Details Recorded Time 03/14/20 22 Date [facility] 14:13:06 10/01/19 15 cholecystectomy completed Majo [facility] 04/13/2022 15:46:36 10/01/19 08 [facility]22 15:46:24 10/01/18 83 tubal occlusion completed Majo Aguillon [facility] 04/13/2022 15:46:06 Imaging Results None recorded. Procedure Notes None recorded. Medical Equipment None Reported. Allergies No known drug allergies Medications Name Sig Start Date Stop Date Status Note LastModified by Organization Details LastModified Time fluoxetin e 40 mg capsule TAKE 1 CAPSULE BY MOUTH ONCE DAILY active Not Available Not Available No t Available amoxicill in 500 mg capsule TAKE 1 CAPSULE BY MOUTH EVERY 8 HOURS 06/11 completed Not Available Not Available Not Available promethaz ine-DM 6.25 mg-15 mg/5 mL oral syrup TAKE 5 ML BY MOUTH EVERY 6 HOURS NEEDED FOR COUGH 04/13 completed Not Available Not Available Not Available torsemide 20 mg tablet TAKE 1 TABLET BY MOUTH ONCE DAILY active Not Available Not Available No t Available azithromy dieudonne 250 mg tablet TAKE 2 TABLETS BY MOUTH ON DAY 1, AND THEN TAKE 1 TABLET BY MOUTH ONCE A DAY ON DAY 2 THROUGH DAY 5 06/11 completed Not Available Not Available Not Available Lasix 40 mg tablet Daily 04/13 completed Frequenc y: daily;Me dication Descript ion: furosemi de; Dosage:1 ; Route:or al; refills: 12; Quantity :30 tablet Not Available Not Available Not Available metronida zole 500 mg tablet TAKE 1 TABLET BY MOUTH TWICE DAILY FOR 7 DAYS active Not Available Not Available No t Available sulfameth oxazole 800 mg-trimet hoprim 160 mg tablet TAKE 1 TABLET BY MOUTH TWICE DAILY 04/13 completed Not Available Not Available Not Available methenami ne hippurate 1 gram tablet Take 1 tablet twice a day by oral route for 90 days. 2024 active Not Available Not Available Not Avai lable modafinil 200 mg tablet TAKE 1 TABLET BY MOUTH ONCE DAILY 04/13 completed Not Available Not Available Not Available benzonata te 100 mg capsule TAKE 1 CAPSULE BY MOUTH THREE TIMES DAILY NEEDED FOR COUGH 06/11 completed Not Available Not Available Not Available methylpre dnisolone 4 mg tablets in a dose pack TAKE BY MOUTH DIRECTED ON INSIDE OF PACKAGE 06/11 completed Not Available Not Available Not Available hydroxyzi ne HCl 10 mg tablet TAKE 1/2 TO 1 (ONE HALF TO ONE) TABLET BY MOUTH THREE TIMES DAILY NEEDED FOR ANXIETY (MAY CAUSE SEDATION ) active Not Available Not Available No t Available cefdinir 300 mg capsule TAKE 1 CAPSULE BY MOUTH TWICE DAILY 04/13 completed Not Available Not Available Not Available methylphe nidate ER 18 mg tablet,ex tended release 24 hr active Not Available Not Available Not Available methylphe nidate ER 36 mg tablet,ex tended release 24 hr active Not Available Not Available Not Available spironola ctone 50 mg tablet TAKE 1 TABLET BY MOUTH ONCE DAILY active Not Available Not Available No t Available Lexapro 20 mg tablet Daily 04/13 completed Duration : 30 days;Stefan quency: daily;Me dication Descript ion: escitalo pram; Dosage:1 ; Route:or al; refills: 0; Quantity :30 tablet Not Available Not Available Not Available bupropion HCl XL 150 mg 24 hr tablet, extended release TAKE 1 TABLET BY MOUTH ONCE DAILY 06/11 completed Not Available Not Available Not Available nitrofura ntoin monohydra te/macroc rystals 100 mg capsule TAKE 1 CAPSULE BY MOUTH TWICE DAILY 04/13 completed Not Available Not Available Not Available duloxetin e 20 mg capsule,d elayed release TAKE 1 CAPSULE BY MOUTH TWICE DAILY active Not Available Not Available No t Available duloxetin e 30 mg capsule,d elayed release active Not Available Not Available Not Available potassium chloride Daily 04/13 completed Frequenc y: daily;Me dication Descript ion: potassiu m chloride ; Dosage:a s directed ; refills: 5; Quantity :30 Not Available Not Available Not Available Multivita mins Daily 04/13 completed Duration : 30 days;Stefan quency: daily;Me dication Descript ion: multivit regan; Dosage:1 ; refills: 0; Quantity :30 Not Available Not Available Not Available dexmethyl phenidate ER 30 mg capsule,e xtended release biphasic5 0-50 TAKE 1 CAPSULE BY MOUTH ONCE DAILY 06/11 completed Not Available Not Available Not Available Saxenda 3 mg/0.5 mL (18 mg/3 mL) subcutane ous pen injector INJECT 0.6MG SUBCUTAN EOUSLY ONCE DAILY FOR 1 WEEK, THEN 1.2MG DAILY FOR 1 WEEK, THEN 1.8MG DAILY FOR 1 WEEK, THEN 2.4MG DAILY FOR 1 WEEK, THEN 3MG DAILY THEREAFT ER 02/06 completed Not Available Not Available Not Available Vitamin B12 04/13 completed Medicati on Descript ion: cyanocob alamin; Dosage:a s directed ; refills: 0 Not Available Not Available Not Available Zepbound 2.5 mg/0.5 mL subcutane ous pen injector 2024 active Not Available Not Available Not Avai lable Zepbound 2.5 mg/0.5 mL subcutane ous solution Inject 0.5 mL every week by subcutan eous route for 28 days. 2024 active Not Available Not Available Not Avai lable Vitals Date Recorded Body height Body mass index (BMI) Body weight Provider Name and Address Organization Details Last Updated DateTime 06/11/2025 154.94 cm 39.7 kg/m2 20595.4 g Esther Macho [facility] 06/11/2025 13:28:53 Social History Question Answer Notes LastModified by Organizat ion Details LastModified Time Tobacco Smoking Status [facility] 15:45:12 What Was The Date Of Your Most Recent Tobacco Screening? 06/11/2025 [email or web address] Information not available 06/11/2025 Has Tobacco Cessation Counseling Been Provided? No Information not available 04/13/2022 Have You Recently Traveled Abroad? No Information not available 04/13/2022 Sex: Unknown Functional Status Question Answer Note LastModified by Organizat ion Details LastModified Time Do you use any illicit or recreational drugs? No Information not available 04/13/2022 Do you or have you ever used any other forms of tobacco or nicotine? No Information not available 04/13/2022 What is your level of alcohol consumption? None Social twice yearly Information not available 04/13/2022 Mental Status None recorded. Family History Relationship Description Onset Age of this Age Resolved Age Notes LastModified by Organization Details LastModified Time Paternal Grandfather Family history of malignant neoplasm 66 67 Throat Cancer Not available 04/13/2022 15:44:15 Paternal Aunt Family history of malignant neoplasm 67 Breast Cancer , still living Not available 04/13/2022 15:44:49 Maternal Grandmother Diabetes mellitus [email or web address] Not available 2024 13:30:45 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 Condition Response Coronary Artery Disease N Blood Transfusion N COPD N Depression Y Anxiety Disorder Y Stroke N Crohn's Disease N Kidney Disease N Asthma Y Thyroid Disease N Breast Cancer N Breast Problem Y Liver Disease N Heart Attack ([place]) N Ovarian Cancer N Diabetes N Congestive Heart Failure (CHF) N Eczema N Diverticulitis N Sleep Apnea Y Heart Disease N Hypertension N Gynecological History Statement/Question Response # of Pregnancies 5 Age at first live 26 Date of Last Mammogram 03/14/2022 Regular Cycles N Date of LMP # of Births 3 Post Menopausal Bleeding N Real Heavy Periods N Total months of 57 Number of years of OCP use 0 Age at Menarche 15 History of Breast Biopsy? (when/where) N one Infertility medication use? N Painful Periods N # of Miscarriages 2 Hormone Replacement Therapy N Obstetrics History GPAL:G 5 P 3 0 2 3 Type Value Multiple Births 0 Full Term 3 Induced 0 Spontaneous 2 Premature 0 Living 3 Ectopics 0 Total 5 Immunizations Vaccine Type Date Status Note Provider Nam e and Address Organization Details Recorded Time COVID-19, mRNA, LNP-S, PF, 100 mcg/0.5mL dose or 50 mcg/0.25mL dose 10/06/2020 completed Not Available [facility] 11:39:07 COVID-19, mRNA, LNP-S, PF, 100 mcg/0.5mL dose or 50 mcg/0.25mL dose 11/03/2020 completed Not Available [facility] 11:39:07 COVID-19, mRNA, LNP-S, PF, 100 mcg/0.5mL dose or 50 mcg/0.25mL dose 11/25/2021 completed Not Available [facility] 11:39:07 Past Encounters Encounter ID Performer Location Encounter Start Date Encounter Closed Date Diagnosis/Indication Diagnosis SNOMED-CT Code Diagnosis ICD10 Code Diagnosis IMO Codes Diagnosis Note [id number] YOCASTA GREWAL MD ENDOCRINO [facility] [place] [address] 05/11/2025 11:38:00 05/11/2025 12:24:44 Morbid obesity 841168956 E66.01 R73.03 G47.33 BMI of 38.9 down from 39.9 and a weight of 206 from 211Associa nani comorbidit ies: Obstructiv e sleep apnea.Arvind unseled about the importance of lifestyle interventi on i.e. low-calori e diet and activity which she is currently optimizing per patientPre viously on semaglutid e without weight lossPrescr iption for Zepbound 2.5 mg subcu weekly for 4 weeks sent to her pharmacy Further intensific ation of her dose based on her response and clinical evaluation Benefits and side effects michael peraza with patient 3 months follow-up Patient verbalized understand ing and agreed with the above mentioned plan of care. [id number] DI SUN MD [facility] [address] [address] 06/11/2025 13:07:18 06/11/2025 15:38:42 Recurrent urinary tract infection 668524004 N39.0 [id number] - Consider anatomic evaluation with cystoscopy to rule out structural abnormalit ies. - Initiate methenamin e to alter urinary environmen t and reduce bacterial growth. - Encourage increased fluid intake to 75-100 ounces daily to promote urinary flushing. Increased frequency of urination [id number] R35.0 03888 - Monitor diuretic use and adjust as necessary to manage urinary frequency. Urge incon tinence of urine [id number] N39.41 [id number] - Discussed potential use of medication s to manage urgency and provide time to reach the bathroom. Health Concerns Section Related Observation LastModified by Organization Detai ls LastModified Time None Recorded Concern Status LastModified by Organization Details LastModified Time None Recorded Payers Encounter Date Sequence Insurance Name Policy Number Policy Jay Covered Member ID Jay Member ID Guarantor Name 06/11/2025 1 [employer] [id number] 1 Sara Castillo [id number] Sara Castillo Notes Date Note Type Note Provider Name and Address Organization Details Recorded Time 06/11/2025 text/html The patient is a 54-year-old female presenting with recurrent urinary tract infections. She reports that the infections seem to clear up with antibiotics but never fully resolve, leading to frequent recurrences. Approximately three weeks ago, she was hospitalized for sepsis associated with a urinary tract infection, with a sepsis level of 2.8. The patient experiences increased frequency of urination, particularly after taking diuretics such as spironolactone and torsemide, which cause her to urinate every 20 minutes for about one to two hours. She reports nocturia, waking up one to three times per night to urinate, and denies any burning sensation or visible blood in the urine. The patient also reports urge incontinence, describing an inability to hold urine, which necessitates urgent trips to the bathroom. She has been prescribed medications to manage urinary frequency but expresses concern about the conflicting effects of her current medications. Her medical history is significant for morbid obesity, for which she is under endocrinological care and has been started on Zepbound. A urine culture from April 02, 2025, showed alcantara-susceptible E. coli. Documentation on this patient encounter was supported using voice-enabled Al technology. The patient consented to recording for the purpose of documenting the encounter. Provider reviewed content of the generated note prior to signature. - Urine culture (04/02/2025): E. coli, alcantara-susceptible DI SUN MD [address] [place] [address], [phone], [facility] 06/12/2025 15:06:55 OBGyn Episode No OBEpisode recorded.
--- OUTSIDE RECORDS SUMMARY | 2025-08-07 23:37 | XMS_ITS | Patient Health Record ---
Author Organization [facility] Address [address] [address] [place] [address] Care Team Providers Care Cocktail Server Name Role Phone Lovely Gallegos Unavailable [phone] Allergies No Known Allergies Reason For Referral [...] Coverage End Date Keith BALLESTEROS [address] [place] [address] [id number] Sara Castillo Self - patient is the insured Medical (General) History 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 History ICD Code anxiety depression
--- OUTSIDE RECORDS SUMMARY | 2025-08-07 23:37 | XMS_ITS | Data Portability ---
Author Organization [place] [facility] [place] [facility] CLOSED Address [address] [facility] [address] [place] [address] Care Team Providers Care Liquor Blender Name Role Phone ARELY RODRIGUEZ Primary Care Provider Assessment Encounter Date Assessment Date Assessment LastModified by Organization Details LastModified Time 04/13/2022 04/13/2022 Assessment: 51-year-old female with no signs of malignancy and breast mass consistent with normal fibrocystic breast tissue. Plan: The patient's imaging and exam was discussed at length. I had her feel both sides of her inferior breast to note that this is symmetric and normal breast tissue that she is palpating. I do not feel that there is any indication for a biopsy. She is to continue with her yearly mammograms and clinical breast exam. She is to follow-up with me as needed or yearly for her clinical breast exams if she wishes. Not available 04/13/2022 19:34:02 06/11/2025 06/11/2025 - 54-year-old female with a [...] Lab urinalysi s panel, auto 2024 025 [email or web address] 4 [facility]ly [facility] [place] [facility], [address] , [address], [place], [address], 06/11/2025 13:58:03 aldostero ne, serum 2024 025 [email or web address] [facility], [address] [place] [address], [address], 01/20/2025 14:32:33 aldostero ne/renin activity, ratio, plasma 2024 025 [facility], [address] [place] [address], [phone], 12/23/2024 15:48:57 renin activity, plasma (pra) 2024 025 [email or web address] [facility], [address] [place] [address], [address], 01/20/2025 14:32:33 BMP, serum or plasma 2024 025 [facility], [address] [place] [address], [address], 12/18/2024 10:39:44 cortisol, saliva - Late-nigh t salivary cortisol 2 specimens on 2 successiv e nights 2024 025 [email or web address] [facility], [address] [place] [address], [address], 01/20/2025 14:32:34 cortisol, saliva - Late-nigh t salivary cortisol 2 specimens on 2 successiv e nights 2024 025 [email or web address] [facility], [address] [place] [address], [address], 01/20/2025 14:32:34 igf-1 (insulin- like growth factor), serum 2024 025 [facility], [address] [place] [address], [address], 12/24/2024 16:36:02 T4, free, serum 2024 025 [facility], [address] [place] [address], [address], 12/18/2024 11:57:16 TSH, serum or plasma 2024 025 [facility], [address] [place] [address], [address], 12/18/2024 11:57:15 T3, free, serum or plasma 2024 025 [facility], [address] [place] [address], [address], 12/18/2024 11:57:13 prolactin , serum 2024 025 [facility], [address] [place] [address], [address], 12/18/2024 11:57:17 Referral None recorded. Procedures None recorded. Surgeries None recorded. Imaging None recorded. Medication Orders methenami ne hippurate 1 gram tablet 2024 025 [facility], [address] [place] [address], [id number], 06/11/2025 14:01:23 Zepbound 2.5 mg/0.5 mL subcutane ous solution 2024 025 [facility], [address], [address], 05/11/2025 12:27:01 Patient TargetsNo targets recorded. Patient Instructions Encounter Date Encounter Id Patient Instructions Last Modified By Organization Details Last Modified Time 04/13/2022 [id number] _30__ minutes wa s spent on this encounter; including preparing to see the patient, which involved review/interpretat ion of diagnostics and reports; obtaining and/or reviewing separately obtained history; performing appropriate physical exam; ordering/schedulin g medications, tests or procedures; communicating findings and counseling/educati ng the patient, family and/or caregiver; documentation in EMR; and care coordination. Not available 04/13/2022 19:31:15 06/11/2025 [id number] learning about healthy weight [email or web address] Not available 06/11/2025 13:58:03 - Take methenami ne as prescribed to help reduce urinary tract [...] Abnormal Flag Note LastModifiedBy Organization Detail LastModifiedTime 12/19/19 25 12/18/2024 BASIC METAB OLIC PANEL glucose 120 mg/dL 74-100 high Not Available [facility] [address] [place] [address], [address], 12/18/2024 10:39:44 12/19/19 25 12/18/2024 BASIC METAB OLIC PANEL blood urea nitrogen 21 mg/dL 6-20 high Not Available [facility] [address] [place] [address], [address], 12/18/2024 10:39:44 12/19/19 25 12/18/2024 BASIC METAB OLIC PANEL creatinine 0.93 mg/dL 0.50-0 .95 normal Not Available [facility] [address] [place] [address], [address], 12/18/2024 10:39:44 12/19/19 25 12/18/2024 BASIC METAB OLIC PANEL BUN/creatini ne ratio 23 (calc ) 10-20 high Not Available [facility] [address] [place] [address], [address], 12/18/2024 10:39:44 12/19/19 25 12/18/2024 BASIC METAB OLIC PANEL sodium 141 mmol/ L 136-14 5 normal Not Available [facility] [address] [place] [address], [address], 12/18/2024 10:39:44 12/19/19 25 12/18/2024 BASIC METAB OLIC PANEL potassium 4.1 mmol/ L 3.4-5. 0 normal Not Available [facility] [address] [place] [address], [address], 12/18/2024 10:39:44 12/19/19 25 12/18/2024 BASIC METAB OLIC PANEL chloride 103 mmol/ L 98-107 normal Not Available [facility] [address] [place] [address], [address], 12/18/2024 10:39:44 12/19/19 25 12/18/2024 BASIC METAB OLIC PANEL carbon dioxide 23 mmol/ L 22-31 normal Not Available [facility] [address] [place] [address], [address], 12/18/2024 10:39:44 12/19/19 25 12/18/2024 BASIC METAB OLIC PANEL anion gap 15 (calc ) 7-25 normal Not Available [facility] [address] [place] [address], [address], 12/18/2024 10:39:44 12/19/19 25 12/18/2024 BASIC METAB OLIC PANEL calcium 9.7 mg/dL 8.6-10 .2 normal Not Available [facility] [address] [place] [address], [address], 12/18/2024 10:39:44 12/19/19 25 12/18/2024 BASIC METAB OLIC PANEL GFR 74 >= 60 normal NOT E New calcu latio n for GFR (CKD- EPI 2020) is formu lated witho ut race adjus tment facto rs at the recom menda tion of the Natio nal Kidne y Found ation and Luis Felipe Ramose ty of Nephr ology . This calcu latio n has not been valid ated in pregn ant women . For pedia tric patie nts refer to https ://iram moreno.wesley wayne.o rg/pr ofess ional s/KDO QI/gf r_cal culat orPed Not Available [facility] [address] [place] [address], [address], 12/18/2024 10:39:44 12/19/19 25 12/18/2024 T3 FREE T3 free 3.32 pg/mL 2.00-4 .40 normal Not Available [facility] [address] [place] [address], [address], 12/18/2024 11:57:13 12/19/19 25 12/18/2024 TSH TSH 1.780 u[IU] /mL 0.270- 4.200 normal Not Available [facility] [address] [place] [address], [address], 12/18/2024 11:57:14 12/19/19 25 12/18/2024 T4,FR EE T4,free 1.01 NG/dL 0.93-1 .70 normal Not Available [facility] [address] [place] [address], [address], 12/18/2024 11:57:16 12/19/19 25 12/18/2024 PROLA CTIN prolactin 8.40 NG/mL 4.79-2 3.30 normal Refer ence range is based on non-p regna nt women . Not Available [facility] [place], [address], 12/18/2024 11:57:17 12/19/19 25 12/23/2024 ALDOS KAITLYN E-ESTRELLITA IN ACTIV ITY RATIO aldosterone 50 NG/dL high Adult Refer ence Range s for Aldos kaitlyn e: Uprig ht 8:00- 10:00 am < or = 28 ng/dL Uprig ht 4:00- 6:00 pm < or = 21 ng/dL Supin e 8:00- 10:00 am 3-16 ng/dL This test was devel oped and its ye tical perfo rmanc e ursula cteri stics have been deter mined by [employer] s. It has not been clear ed or appro jocelyn by the FDA. This assay has been valid ated pursu ant to the CLIA regul ation s and is used for clini elenita purpo ses. Not Available [facility] [address] [place] [address], [address], 12/26/2024 14:57:14 12/19/19 25 12/25/2024 ALDOS KAITLYN E-ESTRELLITA IN ACTIV ITY RATIO plasma renin activity 7.23 NG/mL /h 0.25-5 .82 high Not Available [facility] [address] [place] [address], [address], 12/26/2024 14:57:14 12/19/19 25 12/25/2024 ALDOS KAITYLN E-ESTRELLITA IN ACTIV ITY RATIO aldosterone- renin ratio 6.9 ratio 0.9-28 .9 normal Not Available [facility] [address] [place] [address], [address], 12/26/2024 14:57:14 12/19/19 25 12/24/2024 IGF-I igf-1 111 NG/mL 50-317 normal Not Available [facility] [address] [place] [address], [address], 12/24/2024 16:36:02 12/19/19 25 12/24/2024 IGF-I Z score (female) -0.5 SD -2.0 - +2.0 normal This test was devel oped and its ye tical perfo rmanc e ursula cteri stics have been deter mined by [employer]. It has not been clear ed or appro jocelyn by the FDA. This assay has been valid ated pursu ant to the CLIA regul ation s and is used for clini elenita purpo ses. Not Available [facility] [address] [place] [address], [address], 12/24/2024 16:36:02 01/19/2001/27/2025 CORTI LAM,S ALIVA cortisol,viridiana scott 0.03 mcg/d L normal 8-10 AM: 0.04- 0.56 mcg/d L noon- 2 PM: < OR = 0.21 mcg/d L 4-6 PM: < OR = 0.15 mcg/d L 10 PM-1 AM: < OR = 0.09 mcg/d L This test was devel oped and its ye tical perfo rmanc e ursula cteri stics have been deter mined by [employer] s. It has not been clear ed or appro jocelyn by the FDA. This assay has been valid ated pursu ant to the CLIA regul ation s and is used for clini elenita purpo ses. Not Available [facility] [address] [place], [address], 01/27/2025 23:57:39 01/20/20 25 01/27/2025 CORTI LAM,S ALIVA cortisol,viridiana scott 0.04 mcg/d L normal 8-10 AM: 0.04- 0.56 mcg/d L noon- 2 PM: < OR = 0.21 mcg/d L 4-6 PM: < OR = 0.15 mcg/d L 10 PM-1 AM: < OR = 0.09 mcg/d L This test was devel oped and its ye tical perfo rmanc e ursula cteri stics have been deter mined by [employer] s. It has not been clear ed or appro jocelyn by the FDA. This assay has been valid ated pursu ant to the CLIA regul ation s and is used for clini elenita purpo ses. Not Available [facility] [address] [place], [address], 01/27/2025 23:57:33 06/11/2006/11/2025 urina lysis panel , auto Unknown Analyte Clean Catch Not Available [facility] With [address], [place], [address], 06/11/2025 13:38:31 06/11/2006/11/2025 urina lysis panel , auto Unknown Analyte Yellow Not Available [facility] [address], [place], [address], 06/11/2025 13:38:31 06/11/20 25 06/11/2025 urina lysis panel , auto Unknown Analyte Clear Not Available [facility] With [place] [address], [place], [address], 06/11/2025 13:38:31 06/11/20 25 06/11/2025 urina lysis panel , auto Unknown Analyte 1.015 Not Available [facility] [address], [place], [address], 06/11/2025 13:38:31 06/11/2006/11/2025 urina lysis panel , auto Unknown Analyte 1.003 - 1.030 Not Available [facility] With [address], [place], [address], 06/11/2025 13:38:31 06/11/2006/11/2025 urina lysis panel , auto Unknown Analyte 5.0 Not Available [facility] [address], [place], [address], 06/11/2025 13:38:31 06/11/2006/11/2025 urina lysis panel , auto Unknown Analyte 5.0 - 8.0 Not Available [facility] With [place] [address], [place], [address], 06/11/2025 13:38:31 06/11/20 25 06/11/2025 urina lysis panel , auto Unknown Analyte 25 Shailesh/uL Not Available [facility] [place] With [address], [place], [address], 06/11/2025 13:38:31 06/11/20 25 06/11/2025 urina lysis panel , auto Unknown Analyte Negati ve Not Available [facility] With [address], [place], [address], 06/11/2025 13:38:31 06/11/20 25 06/11/2025 urina lysis panel , auto Unknown Analyte Negati ve Not Available [facility] With [address], [place], [address], 06/11/2025 13:38:31 06/11/20 25 06/11/2025 urina lysis panel , auto Unknown Analyte Negati ve Not Available [facility] With [address], [place], [address], 06/11/2025 13:38:31 06/11/20 25 06/11/2025 urina lysis panel , auto Unknown Analyte Negati ve Not Available [facility] With [address], [place], [address], 06/11/2025 13:38:31 06/11/20 25 06/11/2025 urina lysis panel , auto Unknown Analyte Negati ve Not Available [facility] With [address], [place], [address], 06/11/2025 13:38:31 06/11/20 25 06/11/2025 urina lysis panel , auto Unknown Analyte Normal Not Available [facility] [address], [place], [address], 06/11/2025 13:38:31 06/11/20 25 06/11/2025 urina lysis panel , auto Unknown Analyte Normal Not Available [facility], [place], [address], 06/11/2025 13:38:31 06/11/20 25 06/11/2025 urina lysis panel , auto Unknown Analyte Negati ve Not Available [facility] With [address], [place], [address], 06/11/2025 13:38:31 06/11/20 25 06/11/2025 urina lysis panel , auto Unknown Analyte Negati ve Not Available [facility] With [address], [place], [address], 06/11/2025 13:38:31 06/11/20 25 06/11/2025 urina lysis panel , auto Unknown Analyte Normal Not Available [facility], [place], [address], 06/11/2025 13:38:31 06/11/20 25 06/11/2025 urina lysis panel , auto Unknown Analyte Normal Not Available [facility] [address], [place], [address], 06/11/2025 13:38:31 06/11/20 25 06/11/2025 urina lysis panel , auto Unknown Analyte Negati ve Not Available [facility] With [address], [place], [address], 06/11/2025 13:38:31 06/11/20 25 06/11/2025 urina lysis panel , auto Unknown Analyte Negati ve Not Available [facility] With [address], [place], [address], 06/11/2025 13:38:31 06/11/20 25 06/11/2025 urina lysis panel , auto Unknown Analyte Negati ve Not Available [facility] [address], [place], [address], 06/11/2025 13:38:31 06/11/20 25 06/11/2025 urina lysis panel , auto Unknown Analyte Negati ve Not Available [facility] With [address], [place], [address], 06/11/2025 13:38:31 04/11/20 22 03/14/2022 MAMMO , scree corry, bilat eral No observ ation record ed. BARCODE Not Available 2021 11:39:47 04/19/20 22 04/13/2022 mg mammo graph y outsi de consu [facility] [address] [place] [address] Patien t Name: SARA Martinez Patinita t : 1969 Patien t Orderi ng Provid er: JUAN CARLOS MAGANA EXAM DATE: 2021 EXAM: OS CONSUL T BREAST HISTOR Y: Palpab le mass left breast COMPAR AUSTIN: None. FINDIN GS: Mammog tessa submit nani dated 022 consis ts of tomogr aphic views of both breast s, CC and MLO orient ations with spot compre ssion views of the left breast . There is also an ultras ound submit nani left breast includ ing the axilla . The breast tissue densit y is hetero geneou sly dense with scatte red areas of asymme try. There is no defini te domina nt mass or distor tion. No microc alcifi cation is noted. Ultras ound left breast is limite d showin g fairly dense nodula r breast tissue but no defina ble true mass. It is my opinio n to comple te the workup , additi onal images should be perfor med includ ing spot views of the left breast and repeat left breast ultras ound to more comple tely assess if there is any underl ja true lesion presen t in the left breast , area of palpab le concer n IMPRES HALIE: 1. BI-RAD S Catego ry 0, needs additi onal imagin g evalua tion. Sugges t furthe r imagin g of the area of palpab le concer n left breast with ultras ound and repeat mammog devon Interp reted By: Juan Carlos Magana MD Electr onical ly Signed By: Juan Carlos Magana MD on 11:50 AM [email or web address] [facility] [address] [place] [address], [address], 04/19/2022 14:56:26 05/02/2005/02/2022 MAMMO , diagn ostic , tomos ynthe sis, unila teral , w/ CAD [address] [address] [place] Name: SARA martinez : 1969 Age: 51 years Patien t Orderi ng Provid er: ARELY RODRIGUEZ EXAM DATE: 2021 EXAM: MG LT DIAG JOCELIN MAMMOG LILIANA, left breast ultras ound INDICA TION: Breast nodule PROCED URE: Multis lice imagin g of the left breast was perfor med includ ing spot compre ssion and mediol ateral views using [employer] ions tomosy nthesi s equipm ent (3D mammog devon) . 2D images were create d from the 3D datase t using C-View softwa re. Left breast ultras ound was perfor med. COMPAR AUSTIN: This is compar ed with prior mammog tessa dated . Prior ultras ound dated FINDIN GS: The left breast is hetero geneou sly dense. This reduce s sensit ivity of mammog devon. Multip le areas of asymme try are presen t in both breast s althou gh no domina nt lesion is identi fied. An ultras ound was perfor med of the left breast target ing the lower outer aspect . There is some nodula r tissue presen t but no domina nt lesion or measur able true mass IMPRES HALIE: BI-RAD S catego ry 2, Benign . Recomm end follow -up screen ing mammog liliana in one year on schedu le. Result s given to fabynita martinez Interp reted By: Juan Carlos Magana MD Electr onical ly Signed By: Juan Carlos Magana MD on 05/02/20 10:41 AM [email or web address] [facility] [address] [facility], [place], [address], 05/02/2022 10:46:51 05/02/2005/02/2022 US, beverley t, unila teral [place] [address] [place] [address] Gurmeet martinez Name: SARA martinez : 1969 Age: 51 years Gurmeet martinez Orderi ng Provid er: ARELY SIMSAS EXAM DATE: 2021 EXAM: MG LT DIAG JOCELIN MAMMOG LILIANA, left breast ultras ound INDICA TION: Breast nodule PROCED URE: Multis lice imagin g of the left breast was perfor med includ ing spot compre ssion and mediol ateral views using Hologi c [employer]eni [employer] Dim[employer] ions tomosy nthesi s equipm ent (3D mammog devon) . 2D images were create d from the 3D datase t using C-View softwa re. Left breast ultras ound was perfor med. COMPAR AUSTIN: This is compar ed with prior mammog tessa dated . Prior ultras ound dated FINDIN GS: The left breast is hetero geneou sly dense. This reduce s sensit ivity of mammog devon. Multip le areas of asymme try are presen t in both breast s althou gh no domina nt lesion is identi fied. An ultras ound was perfor med of the left breast target ing the lower outer aspect . There is some nodula r tissue presen t but no domina nt lesion or measur able true mass IMPRES HALIE: BI-RAD S catego ry 2, Benign . Recomm end follow -up screen ing mammog liliana in one year on schedu le. Result s given to gurmeet Zhong reted By: Juan Carlos Magana MD Electr onical ly Signed By: Juan Carlos Magana MD on 05/02/20 10:41 AM [email or web address] [facility] [address], [address], 05/02/2022 10:46:51 Result Notes Documentation Provider Name and Address Organization Details Recorded Time Mammo, Diagnostic, Tomosynthesis, Unilateral, W/ Cad : [address] [address] Patient Name: SARA RICH Patient : 1970 Age: 51 years Patient Ordering Provider: ARELY RODRIGUEZ EXAM DATE: 05/02/2022 EXAM: MG LT DIAG JOCELIN MAMMOGRAM, left breast ultrasound INDICATION: Breast nodule PROCEDURE: Multislice imaging of the left breast was performed including spot compression and mediolateral views using [employer] tomosynthesis equipment (3D mammography). 2D images were created from the 3D dataset using C-View software. Left breast ultrasound was performed. COMPARISON: This is compared with prior mammograms dated 03/14/2022 . Prior ultrasound dated 03/14/2022 FINDINGS: The left breast is heterogeneously dense. This reduces sensitivity of mammography. Multiple areas of asymmetry are present in both breasts although no dominant lesion is identified. An ultrasound was performed of the left breast targeting the lower outer aspect. There is some nodular tissue present but no dominant lesion or measurable true mass IMPRESSION: BI-RADS category 2, Benign. Recommend follow-up screening mammogram in one year on schedule. Results given to patient Interpreted By: Juan Carlos Magana MD [place] [facility] 05/02/2022 10:46:51 Procedures Surgical History Date Name Laterality Status Provider Name and Address Organization Details Recorded Time 03/14/20 Date of Last Mammogram completed Majo Aguillon [facility] 04/13/2022 14:13:06 10/01/19 15 cholecystectomy completed Majo Aguillon [facility] 04/13/2022 15:46:36 10/01/19 08 delivery completed Majo Aguillon [facility] 04/13/2022 15:46:24 10/01/18 83 tubal occlusion completed Majo Arroyoby [facility] 04/13/2022 15:46:06 Imaging Results None [...] height Body mass index (BMI) Body weight Systolic And Diastolic Provider Name and Address Organization Details Last Updated DateTime 12/18/2024 154.94 cm 38.7 kg/m2 99476.44 g 124/77 mm[Hg] [facility] 12/18/2024 09:07:25 Date Recorded Body height Body mass index (BMI) Body weight Systolic And Diastolic Provider Name and Address Organization Details Last Updated DateTime 02/05/2025 154.94 cm 39.9 kg/m2 62434.99 g 124/76 mm[Hg] [facility] 02/05/2025 11:28:42 Date Recorded Body height Body mass index (BMI) Body weight Body temperature Heart rate Respiratory rate Systolic And Diastolic Provider Name and Address Organization Details Last Updated DateTime 2 154.94 cm 34.6 kg/m2 34367.4 g 97.8 [degF] 88 /min 18 /min 126/80 mm[Hg] Majo Aguillon [facility] 2 16:21:09 Date Recorded Body height Body mass index (BMI) Body weight Systolic And Diastolic Provider Name and Address Organization Details Last Updated DateTime 05/11/2025 154.94 cm 38.9 kg/m2 77492.03 g 128/78 mm[Hg] [facility] 05/11/2025 11:48:30 Date Recorded Body height Body mass index (BMI) Body weight Provider Name and Address Organization Details Last Updated DateTime 06/11/2025 154.94 cm 39.7 kg/m2 88652.4 g Esther Pritchard [facility] 06/11/2025 13:28:53 Social History Question Answer Notes LastModified by Modafirma Details LastModified Time Tobacco Smoking Status Never Smoker Majo Aguillon nitin, [facility] 04/13/2022 15:45:12 What Was The Date Of Your Most Recent Tobacco Screening? 06/11/2025 [email or web address] Information not available 06/11/2025 Has Tobacco Cessation Counseling Been Provided? No Information not available 04/13/2022 Have You Recently Traveled Abroad? No Information not available 04/13/2022 Sex: Unknown Functional Status Question Answer Note LastModified by Organizat Floor64 Details LastModified Time Do you use any [...] available 2024 13:30:45 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 Condition Response Anxiety Disorder Y Ovarian Cancer N Diabetes N Coronary Artery Disease N Thyroid Disease N Breast Cancer N Blood Transfusion N Congestive Heart Failure (CHF) N Eczema N Diverticulitis N Stroke N COPD N Depression Y Asthma Y Crohn's Disease N Breast Problem Y Sleep Apnea Y Liver Disease N Heart Attack ([place]) N Heart Disease N Hypertension N Kidney Disease N Gynecological History Statement/Question Response # of [...] dose 10/06/2020 completed Not Available [facility] 5 11:39:07 COVID-19, mRNA, LNP-S, PF, 100 mcg/0.5mL dose or 50 mcg/0.25mL dose 11/03/2020 completed Not Available [facility] 5 11:39:07 COVID-19, mRNA, LNP-S, PF, 100 mcg/0.5mL dose or 50 mcg/0.25mL dose 11/25/2021 completed Not Available [facility] 5 11:39:07 Past Encounters Encounter ID Performer Location Encounter Start Date Encounter Closed Date Diagnosis/Indication Diagnosis SNOMED-CT Code Diagnosis ICD10 Code Diagnosis IMO Codes Diagnosis Note [id number] HUBER DENNEY MD BREAST SURGERY [address] [address] 04/13/2022 15:39:44 04/14/2022 09:02:50 Fibrocystic disease of breast 94090677 N60.19 [id number] YOCASTA GREWAL MD ENDOCRINO LOGY [address] [address] 12/18/2024 08:49:09 12/18/2024 11:39:53 Hyperaldosteronism 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 Normal serum cortisol of 6 mcg/dL.No known history of hypertensi onRemotely reported an MRI and she was told verbally she had adrenal issues but the report did not specify any adrenal abnormalit y.She is currently on spironolac tone therapy and explained to her that this could interfere with aldosteron e/plasma renin activity measuremen t.She is very concerned about discontinu ing therapy due to worsening water retention lower EXTR extremity edema previously At this point I recommende d to repeat serum aldosteron e along with plasma renin activity for calculatio n of PAC/PRA ratioBMP to evaluate for hypokalemi a Further management as appropriat e continued monitoring or consider a trial of discontinu ing spironolac tone and repeat ratio if clinically indicated and it could be done safely from her PCP standpoint . 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 low-calori e diet and activity Slime negro pharmacolo gic therapy in the form of GLP-1 therapy but she reported modest weight loss previously on GLP-1 therapy. Abnormal weight gain 161 356310 R63.5 Evaluate for endocrine causes of weight gain such as hypothyroi dism, [place] syndrome and growth hormone deficiency as stated above. Further management to be determined based on test results Patient verbalized understand ing and agreed with the above mentioned plan of care. [id number] YOCASTA GREWAL MD ENDOCRINO LOGY [address] [place] [address] 02/05/2025 11:12:30 02/05/2025 13:26:27 Morbid obesity 470676088 E66.01 06183 BMI of 39.9 and a weight of 200Recouns eled about the importance of lifestyle interventi on i.e. low-calori e diet and activity which she is currently optimizing per patient Previously on semaglutid e without weight loss We suggested alternativ rhys Zepbound therapy Benefits and side effects we discussed She is agreeable to start therapy if approved by her insurance Central hypothyroidism 49245133 E03.8 58263 TSH of 1.78 and free T4 of 1.01 on 12/18/2024 Hyperaldosteronism 89599 004 E26.9 93724 Repeated aldosteron e renin activity showed elevated plasma renin activity of 7.23 and aldosteron e 50 and a normal aldosteron e ratio. Although it is difficult to interpret in the context of spironolac tone therapy, the ratio and levels of spironolac tone and renin argues against a diagnosis of hyperaldos teronism. At this point we will continue current spironolac tone therapy Patient verbalized understand ing and agreed with the above mentioned plan of care. [id number] YOCASTA GREWAL MD ENDOCRINO LOGY [address] [place] [address] 05/11/2025 11:38:00 05/11/2025 12:24:44 Morbid obesity [id number] E66.01 R73.03 G47.33 BMI of 38.9 down [...] with the above mentioned plan of care. [id number] DI SUN MD [facility] [address] [place] [address],[place] [address] 06/11/2025 13:07:18 06/11/2025 15:38:42 Recurrent urinary tract infection [id number] N39.0 225502 - Consider anatomic evaluation with cystoscopy to rule out structural abnormalit ies. - Initiate methenamin e to alter urinary environmen t and reduce bacterial growth. - Encourage increased fluid intake to 75-100 ounces daily to promote urinary flushing. Increased frequency of urination 733046233 R35.0 86678 - Monitor diuretic use and adjust as necessary to manage urinary frequency. Urge incon tinence of urine 82792484 N39.41 276941 - Discussed potential use of medication s to manage urgency and provide time to reach the bathroom. Health Concerns Section Related Observation LastModified by Organization Detai ls LastModified Time None Recorded Concern Status LastModified by Organization Details LastModified Time None Recorded Advance Directives Directive None Recorded Payers Insurance Date Sequence Insurance Name Policy Number Policy Jay Covered Member ID Jay Member ID Guarantor Name 06/12/2025 1 [place] [id number] 1 Sara L Anna [id number] Sara L Anna 05/11/2025 1 [place] [id number] Sara L Anna [id number] Sara L Anna 05/12/2025 1 *SELF PAY* Pe nny L Anna 05/11/2025 1 [place] [id number] Sara L Anan [id number] Sara L Anna 05/11/2025 1 [place] [id number] Sara L Anna [id number] Sara L Anna Notes Date Note Type Note Provider Name and Address Organization Details Recorded Time 04/13/2022 text/html Sara Marie is a 51-year-old female who presents with a left breast mass in the lower inner quadrant that has been present for multiple years and unchanging in size. She presents today with concern of a second mass that she noted approximately 3 months ago that is unchanged in size or location since she initially noticed it. She denies any other breast masses, skin changes, nipple discharge/retraction/i nversion, axillary adenopathy. She denies any other history of abnormal mammograms or breast biopsies. On 03/14/2022 the patient had a bilateral diagnostic mammogram and ultrasound with ultrasound specifically looking at the 6:00 6 cm from the nipple area and 8:00, 9 cm from the nipple area. Both of these areas showed normal breast tissue and no suspicious findings. This was given a BI-RADS 1 reading. The patient's risk factor profile is as follows: She is G3, , menarche at age 15 and age of first 26. She breast-fed for 55 months. Her last menstrual period was at age 50. She took less than 1 year of OCPs and denies HRT or IVF use. The patient has a family history of breast cancer in her aunt diagnosed at 67. Her paternal grandfather was noted with diagnosed with throat cancer at age 66. No other family history of malignancy. HUBER DENNEY MD [address] [place] [address], [phone], [facility] 04/13/2022 19:34:06 12/18/2024 text/html 54-year-old female patient with a past medical history as detailed in the problem is significant for obesity, ADHD on therapy, obstructive sleep apnea, history of lower extremity edema/water retention on therapy, seen today as a new consultation hormonal evaluation in the context of abnormal laboratory workup [elevated aldosterone as well as low free thyroid hormone levels] Requesting provider: Venkat Hook several years ago being treated with phentermine for weight loss and after that she was found to have vitamin B12 deficiency and she is currently on repletion therapy. Also upon asking why she is taking torsemide and spironolactone she stated that water retention followed her weight loss therapy and she has been on them for several years. Known to have obstructive sleep apnea and she is currently being elevated waited for CPAP machineReported inability to lose weight despite being on GLP-1 therapy before. She denies any known history of high blood pressure or diabetes No history of easy bruising or depressionShe reported history of rare genetic bleeding disorder Laboratory workup done at an outside facility showed elevated aldosterone and low free thyroid hormone level She denies any palpitations, shaking, excessive sweating or heat intolerance She denies any current high-dose biotin YOCASTA GREWAL MD [address] [place] [address], [phone], [facility] 12/18/2024 11:32:44 02/05/2025 text/html 54-year-old female patient with a past medical history as detailed in the problem is significant for obesity, ADHD on therapy, obstructive sleep apnea, history of lower extremity edema/water retention on therapy, seen today as a new consultation hormonal evaluation in the context of abnormal laboratory workup [elevated aldosterone as well as low free thyroid hormone levels]Initial consultation on 12/18/2024Requesting provider: Venkat Hook several years ago being treated with phentermine for weight loss and after that she was found to have vitamin B12 deficiency and she is currently on repletion therapy. Also upon asking why she is taking torsemide and spironolactone she stated that water retention followed her weight loss therapy and she has been on them for several years.Known to have obstructive sleep apnea and she is currently being elevated waited for CPAP machineReported inability to lose weight despite being on GLP-1 therapy before.She denies any known history of high blood pressure or diabetesNo history of easy bruising or depressionShe reported history of rare genetic bleeding disorderLaboratory workup done at an outside facility showed elevated aldosterone and low free thyroid hormone levelShe denies any palpitations, shaking, excessive sweating or heat intoleranceShe denies any current high-dose biotinInterval history: She had repeat laboratory workup while on spironolactone therapy Still complaining of weight gain and inability to lose weight despite exercise and watching her diet YOCASTA GREWAL MD [address] [place] [address], [phone], [facility] 02/05/2025 12:35:30 05/11/2025 text/html 54-year-old female patient with a past medical history as detailed in the problem is significant for obesity, ADHD on therapy, obstructive sleep apnea, history of lower extremity edema/water retention on therapy, seen today as a 3 months follow-up visit weight management. Initially seen as a new consultation hormonal evaluation in the context of abnormal laboratory workup [elevated aldosterone as well as low free thyroid hormone levels]Initial consultation on 12/18/2024Requesting provider: Craig Hooked several years ago being treated with phentermine for weight loss and after that she was found to have vitamin B12 deficiency and she is currently on repletion therapy. Also upon asking why she is taking torsemide and spironolactone she stated that water retention followed her weight loss therapy and she has been on them for several years.Known to have obstructive sleep apnea and she is currently being elevated waited for CPAP machineReported inability to lose weight despite being on GLP-1 therapy before.She denies any known history of high blood pressure or diabetesNo history of easy bruising or depressionShe reported history of rare genetic bleeding disorderLaboratory workup done at an outside facility showed elevated aldosterone and low free thyroid hormone levelShe denies any palpitations, shaking, excessive sweating or heat intoleranceShe denies any current high-dose biotinShe had repeat laboratory workup while on spironolactone therapyStill complaining of weight gain and inability to lose weight despite exercise and watching her dietPrescribed Zepbound 2.5 mg subcu weekly which she could not start to due to the cost Recently had a new insurance and would like to start Zepbound therapy Reported intermittent weight retention and ankle swelling YOCASTA GREWAL MD [address] [place] [address], [phone], [facility] 05/11/2025 12:18:37 06/11/2025 text/html The patient is a 54-year-old [...] (04/02/2025): E. coli, alcantara-susceptible DI SUN MD [address] [place] [address], [phone], [facility] 06/12/2025 15:06:55 OBGyn Episode Ob Episode Information Episode Created Date Number of Fetuses Patient Bloodtype Patient rh Status Prepregnancy Weight lbs Domestic Partner Domestic Partner Phone Father Name [employer] Status 04/13/20 22 1 CLOSED Fetus Data First Name Last Name Admitted to NICU Weight (g) Sex Living Outcome Pediatric Complications Fetus ID Race Codes Race Delivery Type Full Term [id number] Manolo Calculation Initial Manolo Date Initial Exam Date Initial Exam Provider Initial Ultrasound Date Last Menstrual Period Date Ultra Sound Weeks Gestation 0 Eighteen To Twenty Week Manolo Update Ultra Sound Date Fundal Height At Umbil Quickening Date Ultra Sound Latest Weeks Gestation Final Manolo Confirmed By Final Manolo Confirmed Date Final Manolo Date Ultra Sound Latest Days Gestation 0 0 Menstrual History Last Menstrual Date Menses Monthly On Bcp Conception Prior Menses Frequency Hcg Plus Date Menarche Onset Age Delivery Information Delivery Date Delivery Type Labor Anesthesia Weeks Gestation Incision Type Labor Labor Length Hrs Delivered By Post Complications Tubal Sterilization Discharge Date Comments 6 Discharge Information Feeding Method Contraceptive Method Maternal HG B and HCT Levels Ob Episode Information Episode Created Date Number of Fetuses Patient Bloodtype Patient rh Status Prepregnancy Weight lbs Domestic Partner Domestic Partner Phone Father Name Furnace [employer] Status 04/13/20 22 1 CLOSED Fetus Data First Name Last Name Admitted to NICU Weight (g) Sex Living Outcome Pediatric Complications Fetus ID Race Codes Race Delivery Type Full Term [id number] Manolo Calculation Initial Manolo Date Initial Exam Date Initial Exam Provider Initial Ultrasound Date Last Menstrual Period Date Ultra Sound Weeks Gestation 0 Eighteen To Twenty Week Manolo Update Ultra Sound Date Fundal Height At Umbil Quickening Date Ultra Sound Latest Weeks Gestation Final Manolo Confirmed By Final Manolo Confirmed Date Final Manolo Date Ultra Sound Latest Days Gestation 0 0 Menstrual History Last Menstrual Date Menses Monthly On Bcp Conception Prior Menses Frequency Hcg Plus Date Menarche Onset Age Delivery Information Delivery Date Delivery Type Labor Anesthesia Weeks Gestation Incision Type Labor Labor Length Hrs Delivered By Post Complications Tubal Sterilization Discharge Date Comments 0 Discharge Information Feeding Method Contraceptive Method Maternal HG B and HCT Levels Ob Episode Information Episode Created Date Number of Fetuses Patient Bloodtype Patient rh Status Prepregnancy Weight lbs Domestic Partner Domestic Partner Phone Father Name Furnace [employer] Status 04/13/20 22 1 CLOSED Fetus Data First Name Last Name Admitted to NICU Weight (g) Sex Living Outcome Pediatric Complications Fetus ID Race Codes Race Delivery Type Full Term [id number] Manolo Calculation Initial Manolo Date Initial Exam Date Initial Exam Provider Initial Ultrasound Date Last Menstrual Period Date Ultra Sound Weeks Gestation 0 Eighteen To Twenty Week Manolo Update Ultra Sound Date Fundal Height At Umbil Quickening Date Ultra Sound Latest Weeks Gestation Final Manolo Confirmed By Final Manolo Confirmed Date Final Manolo Date Ultra Sound Latest Days Gestation 0 0 Menstrual History Last Menstrual Date Menses Monthly On Bcp Conception Prior Menses Frequency Hcg Plus Date Menarche Onset Age Delivery Information Delivery Date Delivery Type Labor Anesthesia Weeks Gestation Incision Type Labor Labor Length Hrs Delivered By Post Complications Tubal Sterilization Discharge Date Comments 8 Discharge Information Feeding Method Contraceptive Method Maternal HG B and HCT Levels
--- OUTSIDE RECORDS SUMMARY | 2025-08-07 23:37 | XMS_ITS | Clinical Summary ---
[facility] Address [address] [place] [address] Care Team Providers Care [employer] Name Role Phone Adelaide Bhatti Primary Care Provider [phone] Social History Tobacco Use Types Packs/Day Years [...] Health Maintenance Due Date Last Done Comments Annual Gynecologic Pelvic and Breast Exam 1972 TDAP/TD VACCINES (1 - Tdap) 1991 MAMMOGRAM 2012 COLOGUARD 2017 COLON CANCER SCREENING 5 YEAR SIGMOIDOSCOPY 2017 COLONOSCOPY [address] CANCER SCREENING 2017 CT COLONOGRAPHY 2017 FECAL OCCULT BLOOD TEST 2017 FIT Testing (1 year) 2017 Pneumococcal Vaccine 50+ (1 of 1 - PCV) 2022 ZOSTER VACCINE (1 of 2) 2022 INFLUENZA VACCINE 05/01/2025 ANNUAL PHYSICAL 06/19/2025 HEPATITIS C SCREENING 06/19/2025 Insurance PPO Care Teams Marine [employer] Relationship Specialty Start Date End Date Adelaide Bhatti DO [facility] [place] [address] PCP - General Family Medicine 11/08/23
== END 2025-08-07 23:59 | disposition home or self-care (01) ==
LOC: LAB.DROPOF 23:35
PROVIDERS: PCP Family Medicine; Visit Provider Nurse Practitioner
DX: R39.9 Unspecified symptoms and signs involving the genitourinary system (principal)

== ENCOUNTER 2025-09-22 08:41 | Outpatient (CLI) | payer BC, SELFPAY ==
--- OUTSIDE RECORDS SUMMARY | 2025-09-25 08:44 | XMS_ITS | Clinical Summary ---
Author Organization [facility] Address [address] [place] [id number] Care Team Providers Care Clay Machine Operator Name Role Phone Unavailable Primary Care Provider [...] PCV) 2022 Zoster-RZV(Shingrix) (1 of 2) 2022 Depression Screening 10/01/2024 COVID-19 Vaccine ( season) 2025 11/25/2021, 11/03/2020, 10/06/2020 Influenza Vaccination (#1) 2025 Insurance
--- OUTSIDE RECORDS SUMMARY | 2025-09-25 08:44 | XMS_ITS | Patient Health Record ---
Author Organization [facility] Address [address] [facility] [address] [place] [address] Care Team Providers Care Screen Tender Helper Name Role Phone Lovely Gallegos Unavailable [phone] Allergies No Known Allergies Reason For Referral [...] Coverage End Date Keith BALLESTEROS [address] [place] [address] [id number] Sara Castillo Self - patient is the insured Medical (General) History 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 History ICD Code anxiety depression
--- OUTSIDE RECORDS SUMMARY | 2025-09-25 08:44 | XMS_ITS | Clinical Summary ---
Author Organization [facility] Address [address] [place] [address] Care Team Providers Care Injection Molding Engineer Name Role Phone Adelaide Bhatti DO Primary Care Provider [phone] Allergies No known active allergies Medications spironolactone (ALDACTONE) 50 MG tablet Take 50 mg by mouth daily. Active torsemide (DEMADEX) 20 MG tablet Take 20 mg by mouth daily Indications: visible water retention. Active Social History Tobacco Use Types Packs/Day Years Used Date Smoking Tobacco: Never Smokeless Tobacco: Never Comments Unknown Sex and Gender Information Value Date Recorded Sex Assigned at Not on file Legal Sex Female 1:29 PM EST Gender Identity Not on file Sexual Orientation Not on file Last Filed Vital Signs Vital Sign Reading Time Taken Comments Blood Pressure 110/78 10/20/2020 2:16 PM EST Pulse 84 10/20/2020 2:16 PM EST Temperature 36.7 C (98.1 F) 10/20/2020 2:16 PM EST Respiratory Rate 12 10/20/2020 2:16 PM EST Oxygen Saturation 98% 10/20/2020 2:16 PM EST Inhaled Oxygen Concentration - - Weight 78.5 kg (173 lb) 10/20/2020 2:16 PM EST r eported Height 154.9 cm (5' 1 ) 10/20/2020 2:16 PM EST r eported Body Mass Index 32.69 10/20/2020 2:16 PM EST Plan of Treatment Not on file Medical Devices Not on file Care Teams Injection Molding Engineer Relationship Specialty Start Date End Date Adelaide Bhatti DO [address] [place] [address] PCP - General Family Medicine 10/20/20
--- OUTSIDE RECORDS SUMMARY | 2025-09-25 08:44 | XMS_ITS | Clinical Summary ---
[facility] Address [address] [place] [address] Care Team Providers Care Credit Support Specialist Name Role Phone Adelaide Bhatti Primary Care Provider [phone] Social History Tobacco Use Types Packs/Day Years [...] C SCREENING 06/19/2025 Insurance PPO Care Teams Credit Support Specialist Relationship Specialty Start Date End Date Adelaide Bhatti [place] [facility] [place] [address] PCP - General Family Medicine 11/08/23
--- OUTSIDE RECORDS SUMMARY | 2025-09-25 08:44 | XMS_ITS | Data Portability ---
Author Organization [place] EDD PonceS KISSIMMEE CLOSED Address [address] [facility] [place] [address] Care Team Providers Care Filler Sifter Machine Name Role Phone ARELY RODRIGUEZ Primary Care [...] Details Last Modified Time Details Appointments RECHECK 2025 11:15A Neetu GREWAL MD Not available Not available Not available Lab urinalysi s panel, auto 2024 025 [email or web address] [id number], [address] , [place], [address], 06/11/2025 13:58:03 aldostero ne, serum [email or web address] [place] [address] Laboratory, [address] [place] [address], [address], 01/20/2025 14:32:33 aldostero ne/renin activity, ratio, plasma 2024 025 [facility], [address] [place] [address], [address], 12/23/2024 15:48:57 renin activity, plasma (pra) 2024 025 [email or web address] [facility], [address] [place] [address], [address], 01/20/2025 14:32:33 BMP, serum or plasma 2024 025 [facility], [address] [place] [address], [address], 12/18/2024 10:39:44 cortisol, saliva - Late-nigh t salivary cortisol 2 specimens on 2 successiv e nights 2024 025 [email or web address] [facility] Laboratory, [address] [place] [address], [address], 01/20/2025 14:32:34 cortisol, saliva - Late-nigh t salivary cortisol 2 specimens on 2 successiv e nights 2024 025 [facility], [address] [place] [address], [address], 01/20/2025 14:32:34 igf-1 (insulin- like growth factor), serum 2024 025 [facility], [address] [place] [address], [address], 12/24/2024 16:36:02 T4, free, serum 2024 025 [facility], [address] [place] [address], [address], 12/18/2024 11:57:16 TSH, serum or plasma 2024 025 [facility], [address] [place] [address], [address], 12/18/2024 11:57:15 T3, free, serum or plasma 2024 025 [facility], [address] [place] [address], [address], 12/18/2024 11:57:13 prolactin , serum 2024 025 [facility], [address] [place] [address], [address], 12/18/2024 11:57:17 Referral None recorded. Procedures None recorded. Surgeries None recorded. Imaging None recorded. Medication Orders methenami ne hippurate 1 gram tablet 2024 025 [facility], [address], [address], 06/11/2025 14:01:23 Zepbound 2.5 mg/0.5 mL subcutane ous solution 2024 025 [facility], [address], [address], 05/11/2025 12:27:01 Patient TargetsNo targets recorded. Patient Instructions Encounter Date Encounter Id Patient Instructions Last Modified By Organization Details Last Modified Time 04/13/2022 [id number] _30__ minutes wa s spent on this encounter; including preparing to see the patient, which involved review/interpretat ion of diagnostics and reports; obtaining and/or reviewing separately obtained history; performing appropriate physical exam; ordering/schedulin g medications, tests or procedures; communicating findings and counseling/educati ng the patient, family and/or caregiver; documentation in EMR; and care coordination. Not available 04/13/2022 19:31:15 06/11/2025 [id number] learning about healthy weight [email or web address] Not available 06/11/2025 13:58:03 - Take methenami [...] glucose 120 mg/dL 74-100 high Not Available [facility] [address] [place] [address], [address], 12/18/2024 10:39:44 12/19/19 25 12/18/2024 BASIC METAB OLIC PANEL blood urea nitrogen 21 mg/dL 6-20 high Not Available [facility] Laboratory [address] [place] [address], [address], 12/18/2024 10:39:44 12/19/19 25 12/18/2024 BASIC METAB OLIC PANEL creatinine 0.93 mg/dL 0.50-0 .95 normal Not Available [facility] Laboratory [address] [place] [address], [address], 12/18/2024 10:39:44 12/19/19 25 12/18/2024 BASIC METAB OLIC PANEL BUN/creatini ne ratio 23 (calc ) 10-20 high Not Available [facility] [address] [place] [address], [address], 12/18/2024 10:39:44 12/19/19 25 12/18/2024 BASIC METAB OLIC PANEL sodium 141 mmol/ L 136-14 5 normal Not Available [facility] [address] [place] [address], [address], 12/18/2024 10:39:44 12/19/19 25 12/18/2024 BASIC METAB OLIC PANEL potassium 4.1 mmol/ L 3.4-5. 0 normal Not Available [facility] [address] [place] [address], [address], 12/18/2024 10:39:44 12/19/19 25 12/18/2024 BASIC METAB OLIC PANEL chloride 103 mmol/ L 98-107 normal Not Available [facility] [address] [place] [address], [address], 12/18/2024 10:39:44 12/19/19 25 12/18/2024 BASIC METAB OLIC PANEL carbon dioxide 23 mmol/ L 22-31 normal Not Available [facility] [address] [place] [address], [address], 12/18/2024 10:39:44 12/19/19 25 12/18/2024 BASIC METAB OLIC PANEL anion gap 15 (calc ) 7-25 normal Not Available [facility] [address] [place] [address], [address], 12/18/2024 10:39:44 12/19/19 25 12/18/2024 BASIC METAB OLIC PANEL calcium 9.7 mg/dL 8.6-10 .2 normal Not Available [facility] [address] [place] [address], [address], 12/18/2024 10:39:44 12/19/19 25 12/18/2024 BASIC METAB OLIC PANEL GFR 74 >= 60 normal NOT E New calcu latio n for GFR (CKD- EPI 2020) is formu lated witho ut race adjus tment facto rs at the [facility] menda tion of the Natio nal Kidne y Found ation and Ameri can Socie ty of Nephr ology . This calcu latio n has not been valid ated in pregn ant women . For pedia tric patie nts refer to https ://iram wayne.o rg/pr erma mcelroy s/KDO QI/gf r_cal culat orPed Not Available [facility] [address] [place] [address], [address], 12/18/2024 10:39:44 12/19/19 25 12/18/2024 T3 FREE T3 free 3.32 pg/mL 2.00-4 .40 normal Not Available [facility] [address] [place] [address], [address], 12/18/2024 11:57:13 12/19/19 25 12/18/2024 TSH TSH 1.780 u[IU] /mL 0.270- 4.200 normal Not Available [facility] [address] [place] [address], [address], 12/18/2024 11:57:14 12/19/19 25 12/18/2024 T4,FR EE T4,free 1.01 NG/dL 0.93-1 .70 normal Not Available [facility] [address] [place] [address], [address], 12/18/2024 11:57:16 12/19/19 25 12/18/2024 PROLA CTIN prolactin 8.40 NG/mL 4.79-2 3.30 normal Refer ence range is based on non-p regna nt women . Not Available [facility] [place], [address], 12/18/2024 11:57:17 12/19/19 25 12/23/2024 ALDOS KAITLYN [...] cteri stics have been deter mined by [employer] [place] [facility]. It has not been clear ed or appro jocelyn by the FDA. This assay has been valid ated pursu ant to the CLIA regul ation s and is used for clini elenita purpo ses. Not Available [facility] [address] [place] [address], [address], 12/26/2024 14:57:14 12/19/19 25 12/25/2024 ALDOS KAITLYN E-ESTRELLITA IN ACTIV ITY RATIO plasma renin activity 7.23 NG/mL /h 0.25-5 .82 high Not Available [facility] [address] [place] [address], [address], 12/26/2024 14:57:14 12/19/19 25 12/25/2024 ALDOS KAITLYN E-ESTRELLITA IN ACTIV ITY RATIO aldosterone- renin ratio 6.9 ratio 0.9-28 .9 normal Not Available [facility] [address] [place] [address], [address], 12/26/2024 14:57:14 12/19/19 25 12/24/2024 IGF-I igf-1 111 NG/mL 50-317 normal Not Available [facility] [address] [place] [address], [address], 12/24/2024 16:36:02 12/19/19 25 12/24/2024 IGF-I Z score (female) -0.5 SD -2.0 - +2.0 normal This test was devel oped and its ye tical perfo rmanc e ursula cteri stics have been deter mined by [employer] [place] [employer]. It has not been clear ed or appro jocelyn by the FDA. This assay has been valid ated pursu ant to the CLIA regul ation s and is used for clini elenita purpo ses. Not Available [facility] [address] [place], [address], 12/24/2024 16:36:02 01/19/2001/27/2025 CORTI LAM,S ALIVA cortisol,viridiana [...] stics have been deter mined by [facility]. It has not been clear ed or appro jocelyn by the FDA. This assay has been valid ated pursu ant to the CLIA regul ation s and is used for clini elenita purpo ses. Not Available [facility] [address] [place] [address], [address], 01/27/2025 23:57:39 01/20/20 25 01/27/2025 CORTI LAM,S [...] stics have been deter mined by [facility]. It has not been clear ed or appro jocelyn by the FDA. This assay has been valid ated pursu ant to the CLIA regul ation s and is used for clini elenita purpo ses. Not Available [facility] [address] [place] [address], [address], 01/27/2025 23:57:33 06/11/20 25 06/11/2025 urina lysis panel , auto Unknown Analyte Clean Catch Not Available [facility] [address], [place], [address], 06/11/2025 13:38:31 06/11/20 25 06/11/2025 urina lysis panel , auto Unknown Analyte Yellow Not Available [facility] With [address], [place], [address], 06/11/2025 13:38:31 06/11/20 25 06/11/2025 urina lysis panel , auto Unknown Analyte Clear Not Available [facility] With [address], [place], [address], 06/11/2025 13:38:31 06/11/20 25 06/11/2025 urina lysis panel , auto Unknown Analyte 1.015 Not Available [facility] With [address], [place], [address], 06/11/2025 13:38:31 06/11/20 25 06/11/2025 urina lysis panel , auto Unknown Analyte 1.003 - 1.030 Not Available [facility] With [address], [place], [address], 06/11/2025 13:38:31 06/11/20 25 06/11/2025 urina lysis panel , auto Unknown Analyte 5.0 Not Available [facility] With [address], [place], [address], 06/11/2025 13:38:31 06/11/20 25 06/11/2025 urina lysis panel , auto Unknown Analyte 5.0 - 8.0 Not Available [facility] With [address], [place], [address], 06/11/2025 13:38:31 06/11/20 25 06/11/2025 urina lysis panel , auto Unknown Analyte 25 Shailesh/uL Not Available [facility] With [address], [place], [address], 06/11/2025 13:38:31 06/11/20 25 06/11/2025 urina lysis panel , auto Unknown Analyte Negati ve Not Available [facility] With [address], [place], [address], 06/11/2025 13:38:31 06/11/20 25 06/11/2025 urina lysis panel , auto Unknown Analyte Negati ve Not Available [facility] With [address], [place], [address], 06/11/2025 13:38:31 06/11/20 25 06/11/2025 urina lysis panel , auto Unknown Analyte Negati ve Not Available [facility] With [address], [place], [address], 06/11/2025 13:38:31 06/11/20 25 06/11/2025 urina lysis panel , auto Unknown Analyte Negati ve Not Available [facility] With [address], [place], [address], 06/11/2025 13:38:31 06/11/20 25 06/11/2025 urina lysis panel , auto Unknown Analyte Negati ve Not Available [facility] With [address], [place], [address], 06/11/2025 13:38:31 06/11/2006/11/2025 urina lysis panel , auto Unknown Analyte Normal Not Available [facility] With [address], [place], [address], 06/11/2025 13:38:31 06/11/20 25 06/11/2025 urina lysis panel , auto Unknown Analyte Normal Not Available [facility] With [address], [place], [address], 06/11/2025 13:38:31 06/11/20 25 06/11/2025 urina lysis panel , auto Unknown Analyte Negati ve Not Available [facility] With [address], [place], [address], 06/11/2025 13:38:31 06/11/20 25 06/11/2025 urina lysis panel , auto Unknown Analyte Negati ve Not Available [facility] With [address], [place], [address], 06/11/2025 13:38:31 06/11/20 25 06/11/2025 urina lysis panel , auto Unknown Analyte Normal Not Available [facility] With [address], [place], [address], 06/11/2025 13:38:31 06/11/20 25 06/11/2025 urina lysis panel , auto Unknown Analyte Normal Not Available [facility] With [address], [place], [address], 06/11/2025 13:38:31 06/11/20 25 06/11/2025 urina lysis panel , auto Unknown Analyte Negati ve Not Available [facility] With [address], [place], [address], 06/11/2025 13:38:31 06/11/20 25 06/11/2025 urina lysis panel , auto Unknown Analyte Negati ve Not Available [facility] With [address], [place], [address], 06/11/2025 13:38:31 09/11/06/11/2025 urina lysis panel , auto Unknown Analyte Negati ve Not Available [facility] [address], [place], [address], 06/11/2025 13:38:31 06/11/20 25 06/11/2025 urina lysis panel , auto Unknown Analyte Negati ve Not Available [facility] With [facility] [address], [place], [address], 06/11/2025 13:38:31 04/11/20 22 03/14/2022 MAMMO , scree corry, bilat eral No observ ation record ed. BARCODE Not Available 2021 11:39:47 04/19/20 22 04/13/2022 mg mammo graph y outsi de consu lt [facility] [address] [place] [address] Patien t Name: SARA Martinez Patinita t [...] Carlos Magana MD on 11:50 AM [email or web address] [facility] Radiology [address], [address], 04/19/2022 14:56:26 05/02/20 22 05/02/2022 MAMMO , diagn ostic , tomos ynthe sis, unila teral , w/ CAD [address] [address] Patinita martinez Name: SARA martinez : 1969 Age: 51 years Patinita t Orderi ng Provid er: ARELY RODRIGUEZ [...] schedu le. Result s given to gurmeet martinez Interp reted By: Juan Carlos Magana MD Electr onical ly Signed By: Juan Carlos Magana MD on 05/02/20 10:41 AM [email or web address] [facility]iology [facility] [address] [place] [address], [address], 05/02/2022 10:46:51 05/02/2005/02/2022 [place], ankurmarion t, unila teral [place] [address] [facility] [place] [address] Gurmeet martinez Name: SARA martinez : 1969 Age: 51 years Gurmeet martinez Orderi ng Provid er: ARELY RODRIGUEZ EXAM [...] schedu le. Result s given to fabynita michelle Interp reted By: Juan Carlos Magana MD Electr onical ly Signed By: Juan Carlos Magana MD on 05/02/20 10:41 AM [email or web address] [facility]iology [facility] [address] [place] [address], [address], 05/02/2022 10:46:51 Result Notes Documentation Provider Name and Address Organization Details Recorded Time Mammo, Diagnostic, Tomosynthesis, Unilateral, W/ Cad : [address] [address] Patient Name: SARA RICH Patient : 1970 Age: 51 years Patient Ordering Provider: ARELY RODRIGUEZ EXAM DATE: 05/02/2022 EXAM: MG LT DIAG JOCELIN MAMMOGRAM, left breast ultrasound INDICATION: Breast nodule PROCEDURE: Multislice imaging of the left breast was performed including spot compression and mediolateral views using [employer] tomosynthesis equipment (3D mammography). 2D images [...] By: Juan Carlos Magana MD [place] [facility] 05/02/2022 10:46:51 Procedures Surgical History Date Name Laterality Status Provider Name and Address Organization Details Recorded Time 03/14/20 Date of Last Mammogram completed Majo Aguillon [facility] 04/13/2022 14:13:06 10/01/19 15 cholecystectomy completed Majo Aguillon [facility] 04/13/2022 15:46:36 10/01/19 08 delivery completed Majo Aguillon [facility] 04/13/2022 15:46:24 10/01/18 83 tubal occlusion completed Majo Aguillon [facility] 04/13/2022 15:46:06 Imaging Results None recorded. [...] 1 WEEK, THEN 3MG DAILY THEREAFT ER 05/09 /2025 completed Not Available Not Available Not Available [...] Updated DateTime 12/18/2024 154.94 cm 38.7 kg/m2 39044.44 g 124/77 mm[Hg] [facility] 12/18/2024 09:07:25 Date Recorded Body height Body mass index (BMI) Body weight Systolic And Diastolic Provider Name and Address Organization Details Last Updated DateTime 02/05/2025 154.94 cm 39.9 kg/m2 22482.99 g 124/76 mm[Hg] [facility] 02/05/2025 11:28:42 Date Recorded Body height Body mass index (BMI) Body weight Body temperature Heart rate Respiratory rate Systolic And Diastolic Provider Name and Address Organization Details Last Updated DateTime 154.94 cm 34.6 kg/m2 00560.4 g 97.8 [degF] 88 /min 18 /min 126/80 mm[Hg] Majo Aguillon [facility] 2 16:21:09 Date Recorded Body height Body mass index (BMI) Body weight Systolic And Diastolic Provider Name and Address Organization Details Last Updated DateTime 05/11/2025 154.94 cm 38.9 kg/m2 84110.03 g 128/78 mm[Hg] [facility] 05/11/2025 11:48:30 Date Recorded Body height Body mass index (BMI) Body weight Provider Name and Address Organization Details Last Updated DateTime 06/11/2025 154.94 cm 39.7 kg/m2 83584.4 g Esther Pritchard [facility] 06/11/2025 13:28:53 Social History Question Answer Notes LastModified by Organizat [employer] Details LastModified Time Tobacco Smoking Status Never Smoker Majo Palbetsey taveras, [facility] 04/13/2022 15:45:12 What Was The Date [...] Apnea Y Liver Disease N Heart Attack ([place]) N Heart Disease N Hypertension N Kidney [...] dose 10/06/2020 completed Not Available [facility] 5 11:39:07 COVID-19, mRNA, LNP-S, PF, 100 mcg/0.5mL dose or 50 mcg/0.25mL dose 11/03/2020 completed Not Available [facility] 5 11:39:07 COVID-19, mRNA, LNP-S, PF, 100 mcg/0.5mL dose or 50 mcg/0.25mL dose 11/25/2021 completed Not Available [facility] 5 11:39:07 Past Encounters Encounter ID Performer Location Encounter Start Date Encounter Closed Date Diagnosis/Indication Diagnosis SNOMED-CT Code Diagnosis ICD10 Code Diagnosis IMO Codes Diagnosis Note [id number] HUBER DENNEY MD BREAST SURGERY [address] [place] [address] 04/13/2022 15:39:44 04/14/2022 09:02:50 Fibrocystic disease of breast 51758460 N60.19 [id number] YOCASTA GREWAL MD ENDOCRINO LOGY [address] [address] 12/18/2024 08:49:09 12/18/2024 11:39:53 Hyperaldosteronism 14069684 E26.9 New consultati on elevated aldosteron e [...] from her PCP standpoint . 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 low-calori e diet and activity Slime negro pharmacolo gic therapy in the form of GLP-1 therapy but she reported modest weight loss previously on GLP-1 therapy. Abnormal weight gain 161 507845 R63.5 Evaluate for endocrine causes of weight gain such as hypothyroi dism, Greentop syndrome and growth hormone deficiency as stated above. Further management to be determined based on test results Patient verbalized understand ing and agreed with the above mentioned plan of care. [id number] YOCASTA GREWAL MD ENDOCRINO [facility] [address] [place] [address] 02/05/2025 11:12:30 02/05/2025 13:26:27 Morbid obesity 629529176 E66.01 27151 BMI of 39.9 and a weight of 200Recouns eled about the importance of lifestyle interventi on i.e. low-calori e diet and activity which she is currently optimizing per patient Previously on semaglutid e without weight loss We suggested alternativ rhys Zepbound therapy Benefits and side effects we discussed She is agreeable to start therapy if approved by her insurance Central hypothyroidism 65048904 E03.8 79635 TSH of 1.78 and free T4 of 1.01 on 12/18/2024 Hyperaldosteronism 77244 004 E26.9 23415 Repeated aldosteron e renin activity showed elevated [...] with the above mentioned plan of care. [id number] YOCASTA GREWAL MD ENDOCRINO LOG[facility] [address] [place] [address] 05/11/2025 11:38:00 05/11/2025 12:24:44 Morbid obesity 665162296 E66.01 R73.03 G47.33 BMI of 38.9 down [...] with the above mentioned plan of care. [id number] DI SUN MD [facility] [address] [place] [address],[place] [address] 06/11/2025 13:07:18 06/11/2025 15:38:42 Recurrent urinary tract infection 292275946 N39.0 205542 - Consider anatomic evaluation with cystoscopy to rule out structural abnormalit ies. - Initiate methenamin e to alter urinary environmen t and reduce bacterial growth. - Encourage increased fluid intake to 75-100 ounces daily to promote urinary flushing. Increased frequency of urination 839490402 R35.0 74089 - Monitor diuretic use and adjust as necessary to manage urinary frequency. 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 HUBER DENNEY MD [address] [place] [address], [address], [facility] 04/13/2022 19:34:06 12/18/2024 text/html 54-year-old female patient [...] any current high-dose biotin YOCASTA GREWAL MD [address] [place] [address], [address], [facility] 12/18/2024 11:32:44 02/05/2025 text/html 54-year-old female patient [...] and watching her diet YOCASTA GREWAL MD [address] [place] [address], [address], [facility] 02/05/2025 12:35:30 05/11/2025 text/html 54-year-old female patient [...] thyroid hormone levels]Initial consultation on 12/18/2024Requesting provider: Arely Rodriguez, Allyorted several years ago being treated with phentermine [...] retention and ankle swelling YOCASTA GREWAL MD [address] [place] [address], [address], [facility] 05/11/2025 12:18:37 06/11/2025 text/html The patient is [...] (04/02/2025): E. coli, alcantara-susceptible DI SUN MD [address] [place] [address], [address], [facility] 06/12/2025 15:06:55 OBGyn Episode Ob Episode Information Episode Created Date Number of Fetuses Patient Bloodtype Patient rh Status Prepregnancy Weight lbs Domestic Partner Domestic Partner Phone Father Name Steel Unloader Status 04/13/20 22 1 CLOSED Fetus Data [...] Domestic Partner Domestic Partner Phone Father Name Steel Unloader Status 04/13/20 22 1 CLOSED Fetus Data [...] Domestic Partner Domestic Partner Phone Father Name Steel Unloader Status 04/13/20 22 1 CLOSED Fetus Data [...]
== END 2025-09-22 23:59 | disposition home or self-care (01) ==
LOC: LAB.DROPOF 09-25 08:42
PROVIDERS: PCP Family Medicine; Visit Provider Student in an Organized Health Care Education/Training Program
DX: N39.0 Urinary tract infection, site not specified (principal)
CPT/HCPCS: 87086; 87088; 87186